=== PATIENT | female | born 1940 | race Caucasian/White ===

== ENCOUNTER 2023-11-10 10:02 | Outpatient (AMB) | payer MEDICARE, SELFPAY ==
--- NOTE | 2023-11-10 10:12 | MHC.OFFWIV ---
Intake Vital Signs 11/10/23 10:13 Height 5 ft 1 in Weight 100 lb 8 oz BMI 19.0 BP 118/70 Blood Pressure Location Rt brachial Position Sitting Respiration 14 Pulse 108 H Pulse Source Pulse Oximeter Temp 97.8 F Temp Source Temporal Artery Scan Pulse Oximetry (%) 99 Oxygen Delivery Method Room Air Intake Visit Reasons: Sinus infection Intake Note: Patient states that glands under chin are swollen, her throat is scratchy and she feels pressure around eyes. Patient states she has a cataract surgery coming up and is hoping she wont have to cancel. Patient Tobacco Use Status: Former Tobacco user Illuminator Required: No Accompanied by: Self / Same As Patient Allergies mussels Adverse Reaction (Severe, Verified 11/10/23 10:24) Vomiting azithromycin Adverse Reaction (Intermediate, Verified 11/10/23 10:24) Stomach Upset cefaclor [From Ceclor] Adverse Reaction (Verified 11/10/23 10:24) Hives Medication List - Last Reconciled 11/10/23 by Mine Worthy, [facility]- albuterol sulfate 90 mcg/actuation (Ventolin HFA) inhalation Bacillus coagulans cells PO tnzkagbevo-fcqtsjby-aijnapmjam 160-9-4.8 mcg/actuation (Breztri Aerosphere) inhalations inhalation cholecalciferol (vitamin D3) 25 mcg PO DAILY estradiol 0.5 mg PO DAILY ezetimibe 10 mg PO DAILY zz-szh-FZ-vit B-rahpau-xizksor 200 mcg-15 mcg- 5 mg-1 mg (PreserVision AREDS 2 Plus Multivit) caps PO polyethylene glycol 3350 (Miralax) 17 grams PO DAILY progesterone micronized 100 mg PO DAILY triamcinolone acetonide 0.1% 1 appl topical DAILY Do you need a note to return to daycare/school/sports/work: No HPI HPI Comments History of Present Illness Details Here today w/ URI sx & worried she has a sinus infection. Sx started 5 days ago feels like glands are swollen sore over eyes throat feeling mildly scratchy midly painful w swallowing Used Advil with + relief. Denies being ill prior to onset of sx. worried as she just had cataract surgery and will be getting other eye done and doesnt want to delay her surgery if she is sick [facility] Social History Patient Tobacco Use Status: Former Tobacco user Review of Systems Const All systems reviewed & are unremarkable except as noted in HPI and below Physical Exam Vital Signs: Last Vital Signs Temp 97.8 F 11/10/23 10:13 Pulse 108 H 11/10/23 10:13 Resp 14 11/10/23 10:13 BP 118/70 11/10/23 10:13 Pulse Ox 99 11/10/23 10:13 Oxygen Delivery Method Room Air 11/10/23 10:13 BMI result Body Mass Index 19.0 Const Other: Awake alert NAD Sclera and conjunctiva clear bilat Nares patent, turbinates pale and edematous bilat,+ frontal and maxillary sinus tenderness with palpation bilat TM intact with effusions bilat MMM, pharynx + PND, no exudate shotty ac adenopathy bilat RRR LS CTAB Assessment & Plan Assessment & Plan (1) Acute bacterial sinusitis: Code(s): J01.90 - Acute sinusitis, unspecified; B96.89 - Other specified bacterial agents as the cause of diseases classified elsewhere Plan: . Plan . Medications: New amoxicillin 500 mg PO BID 10 caps 0RF Patient Instructions: What Is It? Sinuses are air-filled spaces behind the bones of the upper face: between the eyes and behind the forehead, nose and cheeks. The lining of the sinuses are made up of cells with tiny hairs on their surfaces called cilia. Other cells in the lining produce mucus. The mucus traps germs and pollutants and the cilia push the mucus out through narrow sinus openings into the nose. When the sinuses become inflamed or infected, the mucus thickens and clogs the openings to one or more sinuses. Fluid builds up inside the sinuses causing increased pressure. Also bacteria can become trapped, multiply and infect the lining. This is sinusitis. Prevention There are some measures you can take to decrease your risk of developing sinusitis. If you smoke cigarettes, you should quit. The smoke can irritate nasal passageways and increase the likelihood of infection. Nasal allergies can trigger sinus infections, too. By identifying the allergen (the substance causing the allergic reaction) and avoiding it, you can help prevent sinusitis. If you have congestion from a cold or allergies, the following may help to reduce the risk of developing sinusitis: Drink lots of water. This thins nasal secretions and keeps mucous membranes moist. Use steam to soothe nasal passages. Breathe deeply while standing in a hot shower, or inhale the vapor from a basin filled with hot water while holding a towel over your head. Avoid blowing your nose with great force, which can push bacteria into the sinuses. Some doctors advise periodic home nasal washings to clear secretions. This may help prevent, and also treat, sinus infections. Treatment Many sinus infections improve without treatment. However, several medications may speed recovery and reduce the chance that an infection will become chronic. Decongestants - Congestion often triggers sinus infections, and decongestants can open the sinuses and allow them to drain. Several are available: Pseudoephedrine (Sudafed) is available without prescription, alone or in combination with other medications in multi-symptom cold and sinus remedies. Pseudoephedrine can cause insomnia, racing pulse and jitteriness. Do not use if you have high blood pressure or a heart condition. Phenylephrine (such as Sudafed PE) is an alternative umhb-exb-oejfaeh oral decongestant. If you take products containing oral phenylephrine, check with the pharmacist to be certain there is no interaction with other medications you take. Oxymetazoline (AfDennis steele and others) and phenylephrine (Vahid-Synephrine and others) are found in nasal sprays. They are effective and may be less likely to cause the side effects seen with pseudoephedrine. However, using a nasal decongestant for more than three days can cause worse symptoms when you stop the medication. This is called the rebound effect. Antihistamines - These medications help to relieve the symptoms of nasal allergies that lead to inflammation and infections. However, some doctors advise against using antihistamines during a sinus infection because they can cause excessive drying and slow the drainage process. Rtcf-urv-jaarghx antihistamines include diphenhydramine (Benadryl and others), chlorpheniramine (Chlor-Trimeton and others) and loratadine (Claritin). Fexofenadine (Kelsy) and cetrizine (Zyrtec) are available by prescription. Nasal steroids - Anti-inflammatory sprays such as mometasone (Nasonex) and fluticasone (Flonase), both available by prescription, reduce swelling of nasal membranes. Like antihistamines, nasal steroids can be most useful for those who have nasal allergies. Nasal steroids tend to produce less drying than antihistamines. Unlike nasal decongestants, nasal steroids can be used for prolonged periods. Saline nasal sprays - These salt-water sprays are safe to use and can provide some relief by adding moisture to the nasal passages, thinning mucus secretions and helping to flush out any bacteria that may be present. Pain relievers - Acetaminophen (Tylenol), ibuprofen (Advil, Motrin and others) or naproxen (Aleve) can be taken sinus pain. Antibiotics - Your doctor may prescribe an antibiotic if he or she suspects that a bacterial infection is causing your sinusitis. If you start taking an antibiotic, complete the entire course so that the infection is completely killed off. Not all cases of sinusitis require antibiotic treatment: Talk with your doctor about whether an antibiotic is right for you. Keep in mind that antibiotics can cause side effects, such as allergic reactions, rash and diarrhea. In addition, overusing antibiotics eventually leads to the spread of bacteria that no longer can be killed by the most commonly prescribed antibiotics. When To Call A Professional Contact a doctor if you experience facial pain along with a headache and fever, cold symptoms that last longer than seven to 10 days, or persistent green discharge from the nose. If your symptoms don't improve within a week of beginning treatment, call your doctor. Call sooner if symptoms are getting worse. If you have repeated bouts of acute sinusitis, you may have allergies or another treatable cause of sinus congestion. Ask your doctor for advice. Coding Level of Care Code Est Pt Level 3 (46838) Diagnoses Acute bacterial sinusitis J01.90; B96.89
[2023-11-10 10:13] VITALS: BP 118/70; PULSE 108; RESP 14; TEMP 36.6; O2SAT 99; BMI 19.0
== END 2023-11-10 10:31 | disposition home or self-care (01) ==
PROVIDERS: PCP Internal Medicine; Visit Provider Nurse Practitioner Family
DX: J01.90 Acute sinusitis, unspecified (principal); B96.89 Other specified bacterial agents as the cause of diseases classified elsewhere
CPT/HCPCS: 99213

== ENCOUNTER 2023-11-16 10:09 | Outpatient (AMB) | payer MEDICARE, SELFPAY ==
--- NOTE | 2023-11-16 10:15 | A.OFFPC_ITS ---
Vital Signs 11/16/23 10:26 Height 5 ft 1.02 in Weight 99 lb BMI 18.7 BP 130/68 Blood Pressure Location Lt brachial Position Sitting Respiration 14 Pulse 90 Pulse Source Pulse Oximeter Temp 98.3 F Temp Source Oral Pulse Oximetry (%) 99 Oxygen Delivery Method Room Air Intake Visit Reasons: ESTABLISH CARE TRANSFER FROM [facility] Intake Note: New patient visit Allergies mussels Adverse Reaction (Severe, Verified 11/16/23 10:20) Vomiting azithromycin Adverse Reaction (Intermediate, Verified 11/16/23 10:20) Stomach Upset cefaclor [From Ceclor] Adverse Reaction (Verified 11/16/23 10:20) Hives Medication List - Last Reconciled 11/16/23 by Bety Hdez MD albuterol sulfate 90 mcg/actuation (Ventolin HFA) 2 puffs inhalation Q4H PRN Bacillus coagulans cells PO cholecalciferol (vitamin D3) 25 mcg PO DAILY estradiol 0.5 mg PO DAILY ezetimibe 10 mg PO DAILY tj-psr-PS-vit G-uaedvv-lygetyn 200 mcg-15 mcg- 5 mg-1 mg (PreserVision AREDS 2 Plus Multivit) caps PO polyethylene glycol 3350 (Miralax) 17 grams PO DAILY progesterone micronized 100 mg PO DAILY Symbicort 160-4.5 mcg/actuation (budesonide-formoterol) 1 inh inhalation BID NS triamcinolone acetonide 0.1% 1 appl topical DAILY Tobacco use date assessed: 11/16/23 Fall risk assessment: No Falls in past year Last assessed Fall Risk: 11/16/23 Dental Screening Dental Screen Date: 11/16/23 Did you have a dental visit in the last 12 months?: Yes Did you have a dental problem in the last 6 months where you did not have access to dental care?: No Was dental information given to patient?: Patient has dentist HPI HPI Comments History of Present Illness Details The patient is an 83 year old female with a past medical history of asthma, osteoporosis, asthma, hyperlipidemia, h/o breast cancer presenting for follow up October 2022-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 She had CT chest & abdomen, blood work-benign. She was referral to [facility] but did not want to pursue Endocrine-osteoporosis. Follows with Dr Espitia. Has post menopausal symptoms-restarted estradiol 0.5mg tab and progesterone 100mg caps through [facility]ina [facility] in [place] [facility]-asthma. On albuterol as needed, symbicort 160/4.5. Has been intolerant of generics moreover they have not provided symptom relief CV-on crestor 10mg daily Heme/Onc-History of breast cancer left upper outer quadrant s/p lumpectomy. Was on tamoxifen-stopped 2/2 side efffects. Seen recently for sinus congestion, sore throat. Chronic nasal congestion. She reports ~3 weeks of persistent lymph nodes of the neck despite resolution of sore throat. Denies night sweats, unintentional weight loss Sees Dr Alvarez-production consultant ROS see HPI PHYSICAL EXAM: GENERAL: Alert and oriented x 3. NAD EYES: EOMI. Anicteric. HENT: scattered tender submandibular, ant & post cervical LN. LUNGS: Clear to auscultation bilaterally. CARDIOVASCULAR: Regular rate and rhythm. No murmur. ABDOMEN: Soft, non-tender +bs EXTREMITIES: No edema. Non-tender. SKIN: No rashes or lesions. Warm. NEUROLOGIC: No focal neurological deficits. CN II-XII grossly intact PSYCHIATRIC: Cooperative. 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 Mammogram abnormal Vitamin D deficiency Underweight Senile osteopenia Seasonal allergies Menopausal syndrome History of malignant neoplasm of breast Bilateral cataracts Asthma Arthritis Surgical History (Updated 11/16/23 @ 10:38 by Monica Galicia CMA) H/O section H/O lumpectomy H/O colonoscopy Family History (Updated 11/16/23 @ 10:40 by Monica Galicia CMA) Mother Dementia Father Emphysema lung Social History Housing: House Patient Tobacco Use Status: Former Tobacco user Cigarettes Per Day: 6 Years Smoked: 10 e-Cigarette/Vaping Use: Never Used Second Hand Smoke Exposure: No service: Yes Current occupational status: retired Cognitive needs: No Hearing needs: Yes (Hearing aid) Vision needs: Yes (reading glasses, bilateral cataracts) Questionnaire PHQ-9 Over the last 2 weeks, how often have you been bothered by any of the following problems? 1. Little interest or pleasure in doing things: not at all 2. Feeling down, depressed, or hopeless: not at all 3. Trouble falling or staying asleep, or sleeping too much: not at all 4. Feeling tired or having little energy: not at all 5. Poor appetite or overeating: not at all 6. Feeling bad about yourself - or that you are a failure or have let yourself or your family down: not at all 7. Trouble concentrating on things, such as reading the newspaper or watching television: not at all 8. Moving or speaking so slowly that other people could have noticed. Or the opposite - being so fidgety or restless that you have been moving around a lot more than usual: not at all 9. Thoughts that you would be better off or of hurting yourself in some way: not at all Total score: 0 Depression Screening Interpretation: Negative (neg) Depression Screening Done: Yes 53979 - PHQ-9 Billing: Yes Source: Developed by Drs. Ronnie Russell, Nay Frank, Hero Mcintosh and colleagues, with an educational simone from [employer] Thrive Questionnaire Date Thrive assessed: 11/16/23 I am a: Patient What is your living situation today?: I have a steady place to live Within the past 12 months, did the food you bought not last and you didn't have the money to get more?: Never true Within the past 12 months, did you worry whether your food would run out before you got money to buy more?: Never true Do you have trouble paying for medicines?: No Do you have trouble getting transportation to medical appointments?: No Do you have trouble paying your heating and electricity bill?: No Do you have trouble taking care of your child, family member or friend?: No Do you have trouble with day-to-day activities such as bathing, preparing meals, shopping, managing finances, etc.?: No Are you currently unemployed and looking for a job?: No Are you interested in more education?: No Please select the resources that you would like help with: None Currently or been in a relationship where the following occur: no concerns reported THRIVE Score: 0 AUDIT C Alcohol Use Questionnaire (AUDIT-C) 1. How often do you have a drink containing alcohol?: Monthly or less 2. How many drinks containing alcohol do you have on a typical day when you are drinking?: 1 or 2 3. How often do you have six or more drinks on one occasion?: Never Total Score: 1 GARICA-7 AMB Questionnaire GARCIA-7 Date GARCIA - 7 assessed: 11/16/23 Feeling nervous, anxious, or on edge: 0 = Not at all Not being able to stop or control worryin = Not at all Worrying too much about different things: 0 = Not at all Trouble relaxin = Not at all Being so restless that it is hard to sit still: 0 = Not at all Becoming easily annoyed or irritable: 0 = Not at all Feeling afraid as if something awful might happen: 0 = Not at all Total GARCIA-7 score (0-4 normal; 5-9 mild; 10-14 moderate; 15-21 severe): 0 Source: Developed by Drs. Ronnie Russell, Nay Frank, Hero Mcintosh and colleagues, with an educational simone from [employer] GARCIA-7 Assessment Billing GARCIA-7 Assessment Tool: GARCIA-7 Assessment 19592 ACT Questionnaire In the past 4 weeks, how much of the time did your asthma keep you from getting as much done at work, school or at home?: None of the time During the past 4 weeks, how often have you had shortness of breath?: Not at all During the past 4 weeks, how often did your asthma symptoms wake you up at night or earlier than usual in the morning?: Not at all During the past 4 weeks, how often have you had to use your rescue inhaler or nebulizer medication?: Not at all How would you rate your asthma control during the past 4 weeks?: Completely controlled ACT Interpretation: Negative Score: 25 Physical exam (Primary Care) Vital Signs: Last Vital Signs Temp 98.3 F 11/16/23 10:26 Pulse 90 11/16/23 10:26 Resp 14 11/16/23 10:26 BP 130/68 11/16/23 10:26 Pulse Ox 99 11/16/23 10:26 Oxygen Delivery Method Room Air 11/16/23 10:26 BMI result Body Mass Index 18.7 Tobacco/Smoking Status: Tobacco use Status Tobacco use date assessed 11/16/23 11/16/23 10:29 Patient Tobacco Use Status Former Tobacco user 11/16/23 10:17 e-Cigarette/Vaping Use Never Used 11/16/23 10:29 PHQ-9: PHQ-9 Score PHQ-9: Total score 0 11/16/23 11:53 Depression Screening Interpretation: Negative (neg) Thrive Assessment: Date of Thrive Assessment Date Thrive assessed 11/16/23 11/16/23 11:05 Currently or been in a relationship where the following occur: no concerns reported Assessment and Plan Assessment & Plan (1) Cervical lymphadenopathy: Code(s): R59.0 - Localized enlarged lymph nodes Plan: Ultrasound ordered (2) Osteoporosis: Code(s): M81.0 - Age-related osteoporosis without current pathological fracture Qualifiers: Osteoporosis type: age-related Presence of current pathological fracture: without current pathological fracture Qualified Code(s): M81.0 - Age- related osteoporosis without current pathological fracture Plan: continue endocrine f/up (3) Asthma: Code(s): J45.909 - Unspecified asthma, uncomplicated Qualifiers: Asthma severity: moderate Asthma persistence: persistent Asthma complication type: uncomplicated Qualified Code(s): J45.40 - Moderate persistent asthma, uncomplicated Plan: controlled. Needs brand name symbicort. Orders: Orders US thyroid 11/16/23 R59.0 - Localized enlarged lymph nodes Medications: New Symbicort 160-4.5 mcg/actuation (budesonide-formoterol) 1 inh inhalation BID 10.2 grams 3RF NS albuterol sulfate 90 mcg/actuation (Ventolin HFA) 2 puffs inhalation Q4H PRN 8.5 grams 3RF shortness of breath, wheezing Coding Level of Care Code Est Pt Level 5 (66701) Complex EM visit Add On G2211 Diagnoses Cervical lymphadenopathy R59.0 Age-related osteoporosis without current pathological fracture M81.0 Osteoporosis type: age-related Presence of current pathological fracture: without current pathological fracture Moderate persistent asthma without complication J45.40 Asthma severity: moderate Asthma persistence: persistent Asthma complication type: uncomplicated Additional Codes GARCIA-7 Assessment Billing - GARCIA-7 Assessment Tool: GARCIA-7 Assessment 39067 ([id number]) Time Spent (min) 48
[2023-11-16 10:26] VITALS: BP 130/68; PULSE 90; RESP 14; TEMP 36.8; O2SAT 99; BMI 18.7
== END 2023-11-16 11:01 | disposition home or self-care (01) ==
PROVIDERS: PCP Internal Medicine; Visit Provider Internal Medicine
DX: J45.40 Moderate persistent asthma, uncomplicated (principal); R59.0 Localized enlarged lymph nodes; M81.0 Age-related osteoporosis without current pathological fracture
CPT/HCPCS: 99215; G2211

== ENCOUNTER 2024-05-26 10:10 | Outpatient (AMB) | payer MEDICARE, SELFPAY ==
--- OUTSIDE RECORDS SUMMARY | 2024-05-26 10:12 | XMS_ITS | Data Portability ---
Author Organization [place] [facility],, LORENZA ROBISON MD Address [address] [address] Care Team Providers Care Msw Name Role Phone LINHA ALEXA Primary Care Provider [phone] Assessment No assessment recorded. Plan of Treatment Reminders Order Date Submit Date Provider Last Modified By Organization Details Last Modified Time Details Appointments None recorded. Lab wet mount, vaginal 2022 023 AJIT In-Office Order, Internal Use Only DO Not Attach Compendium DO Not Attach Compendium, Do Not Delete/merge, [id number] 3 12:50:04 pap, LB 2022 023 [facility], [address], [place], [address], 3 11:25:39 wet mount, vaginal 2023 024 [email or web address] 1 In-Office Order, Internal Use Only DO Not Attach Compendium DO Not Attach Compendium, Do Not Delete/merge, [id number] 4 11:02:48 wet mount, vaginal 2023 024 [email or web address] 1 In-Office Order, Internal Use Only DO Not Attach Compendium DO Not Attach Compendium, Do Not Delete/merge, [id number] 4 14:58:34 wet mount, vaginal 2023 024 [email or web address] 1 In-Office Order, Internal Use Only DO Not Attach Compendium DO Not Attach Compendium, Do Not Delete/merge, [id number] 4 11:42:27 cytology report, thin prep, smear or scraping, cervical or vaginal 2023 024 [place] [facility], [address], [place], [address], 4 10:06:55 Referral endocrinol ogy referral - prior patient of Dr. Espitia, has osteoporos is 2023 024 [facility] Kina Espitia MD, [address], [facility], [place], [address], 4 07:37:40 Procedures None recorded. Surgeries None recorded. Imaging MAMMO, screening, digital, bilateral - Breast Aspiration and/or Biopsy if needed 2023 024 [facility] (Mammography) , [address] [place] [address], [address], 4 10:36:41 bone density 2023 024 [facility] (Central Scheduling Radiology), [address] [place] [address], [address], 4 11:14:35 Medication Orders Pyridium 100 mg tablet 2022 023 [facility], [address] [place], [address], 3 09:36:19 terconazol e 0.4 % vaginal cream 2023 024 [place] [id number] [facility], [address] [place], [address], 4 14:39:57 fluconazol e 150 mg tablet 2023 024 [place] [id number] [facility], [address] [place], [address], 4 10:52:39 Patient TargetsNo targets recorded. Patient Instructions Encounter Date Encounter Id Patient Instructions Last Modified By Organization Details Last Modified Time 01/26/2023 [id number] painful urinatio n (dysuria): care instructions Not available 01/26/2023 10:12:24 She is here for continued problems with vaginal discharge. She notes that at night she has no discharge When I wake up I'm dry but during the day a clear, odorless discharge is noted and she needs to change her underwear 4 or 5 times a day as it gets damp. she tried wearing a mini pad however it was irritating to her. She has no pruritus. She gets estradiol 0.5 mg and prometrium 100 mg daily from her Internet shank archer. She has a past history of breast cancer and macular degeneration and is aware that these are contraindications for taking HRT however she prefers to take it. She would like to know what the discharge is nad how to get rid of it. She uses desitin around the rectum as the wetness causes irritation, and this does help her symptoms. She also would like to know how long supplements stay in your body and whether her HRT is causing this discharge. She would like to know how to wean down off of HRT. She is using the Aristocort and clobetasol prn with good results for her lichen sclerosis. All of her questions were answered to her satisfaction. she is advised to try hypoallergenic mini pads. We discussed that she could take pyridium at hs and then see if the discharge the next day is discolored or not, she wishes to try this. Is advised that the urine stains yellow/orange and so to wear a minipad to try to not stain her clothing. If the discharge is colored then we will refer her to a urologist. IF it remains clear and the urine is colored then she will try to wean down of the HRT. OR she could try seeing if a decongestant such as Zyrtec or Claritin dries up the vaginal discharge enough that it is tolerable for her. All questions answered. RX Pyridium called in. Face to face discussion 30 minutes [email or web address] Not available 01/26/2023 12:38:51 03/23/2023 [id number] osteoporosis: ca re instructions Not available 03/23/2023 10:18:40 abnormal Pap mehul t: care instructions Not available 03/23/2023 10:16:44 She is here for a repeat pap after ASCUS without HR HPV, and also to discuss her recent bone density that showed her T score dropped from -3.3 to -3.7. She sees the director of housing, Dr. Douglas, and the bone density was sent to her, but she has not heard back from their office yet. 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 Took Actonel for 4 years and then took Boniva for 1 year, stopped in 2010 because she developed jaw pain and was concerned. She had left breast DCIS in 01/2019. Pap is taken. We discussed that her bone density worsened and she should discus this with her director of housing. She is given copies of her most recent 2 bone density tests for her records. she will call their office to set up a telehealth. If this pap is normal then repeat pap at fl4xt annual. If this pap has ASCUS again then colpo. We discussed this at length, all questions answered. Not available 03/23/2023 10:18:26 06/11/2023 [id number] osteoporosis: ca re instructions Not available 06/11/2023 10:51:13 vaginal yeast infection: care instructions Not available 06/11/2023 10:50:06 She is here for a complaint of vaginal discharge. She is wearing a minipad every day due to this. It is odorless, colorless, does not cause irritation and it is not itchy. She felt it may be related to taking her HRT and so she stopped her HRT in March, but two months later she still has the discharge. No pelvic cramping or pain. Also she would like to have me make a referral to Dr. Espitia's new office in [place] to manage her osteoporosis. Also she would like to know if I can help with her prior auth for her Symbicort. We do not give her the HRT, she gets it from am Internet provider as she has had breast DCIS in the past and we had informed her that this was not advisable. __ Note from 03/22: She is here for a repeat pap after ASCUS without HR HPV, and also to discuss her recent bone density that showed her T score dropped from -3.3 to -3.7. She sees the director of housing, Dr. Douglas, and the bone density was sent to her, but she has not heard back from their office yet. 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 Took Actonel for 4 years and then took Boniva for 1 year, stopped in 2010 because she developed jaw pain and was concerned. She had left breast DCIS in 01/2019. Pap is taken. We discussed that her bone density worsened and she should discus this with her director of housing. She is given copies of her most recent 2 bone density tests for her records. she will call their office to set up a telehealth. If this pap is normal then repeat pap at ne4xt annual. If this pap has ASCUS again then colpo. We discussed this at length, all questions answered. Wet willian show yeast, an rx for Terazol 7 is called in. She is advised that if her discharge persists after the treatment then to call us and I will order a pelvic sonogram to assess whether the wetness originated in the uterus or fallopian tubes. She will let us know where to order it, she believes likely [facility]. All questions answered. A referral for Dr. Espitia is made. She is advised to contact her PCP about her Symbicort. She notes she has tried but they're so busy. Not available 06/11/2023 11:02:39 09/13/2023 [id number] vaginal yeast infection: care instructions Not available 09/13/2023 14:54:29 She is here for a one week history of vaginal pruritus. She has symptomatic monilia, rx diflucan, call if symptoms persist or recur. She is using topical desitin for comfort, which is fine. Not available 09/13/2023 15:00:04 12/17/2023 [id number] advance benefici bradford notice information Not available 12/17/2023 11:42:00 advance care sathish nning for heart failure: care instructions Not available 12/17/2023 11:41:59 atrophic vaginit is: care instructions Not available 12/17/2023 11:42:00 learning about healthy weight Not available 12/17/2023 11:41:59 She is here for annua, doing well. The desitin works well, and the clobetasol improves her symptoms of lichen sclerosis. Her director of housing manages her osteoporosis. She would like wet willian as she wonders if she has yeast though she has no symptoms at the moment. Her Internet fruit or nut farmworker gives her the estradiol, she has a pat history of breast cancer. Note from 2022: She is here for annual, doing well. Her senior windows administrator was concerned that she might have an undiagnosed internal cancer because she developed a large number of actinic keratosis in a short while. She had a Chest X ray, and a pelvic sonogram, and abdominal scan and all were negative. She is using Desitin l on her rectal area to help prevent the red irritation. She is using clobetasol for topical mangement of her lichen sclerosis. Her director of housing manages her osteoporosis. she has a telehealth fruit or nut farmworker doctor who gives her the HRT despite her past history of breast cancer. Bone density last year was stable osteoporosis. ____ She appears to be doing well. Monthly self breast exam was taught, and stressed, and is advised to call if she discovers any new mass in the breast. Does not desire renew clobetasol at this time. Wet willian are negative for yeast, she is reassured. Not available 12/17/2023 11:43:43 Reason for Referral Endocrinology Referral for S enile osteoporosis prior patient of Dr. Espitia, has osteoporosis Referring Physician: Lorenza Robison, Gynecology, Encounter Date: 06/11/2023 Results Created Date Observation Date Name Description Value Unit Range Abnormal Flag Note LastModifiedBy Organization Detail LastModifiedTime 01/27/2001/26/2023 rock patterson Clue Cells negati ve Not Available In-Office Order Internal Use Only DO Not Attach Compendium DO Not Attach Compendium, Do Not Delete/merge, [id number] 01/26/2023 10:11:01/27/2001/26/2023 wet mount , vagin al Trichomonas negati ve Not Available In-Office Order Internal Use Only DO Not Attach Compendium DO Not Attach Compendium, Do Not Delete/merge, [id number] 01/26/2023 10:11:01/27/20 23 01/26/2023 wet mount , vagin al Hyphae negati ve Not Available In-Office Order Internal Use Only DO Not Attach Compendium DO Not Attach Compendium, Do Not Delete/merge, 01/26/2023 10:11:01/27/2001/26/2023 wet mount , vagin al atrophic epithelium positi ve Not Available In-Office Order Internal Use Only DO Not Attach Compendium DO Not Attach Compendium, Do Not Delete/merge, [id number] 01/26/2023 10:11:28 03/23/2003/23/2023 CYTOL OGY (GREENHOUSE MANAGER) results Patigraeme nt Name: URSZULA CARBAJAL nt : 1940 (Age: 82) Lab Acces winnie #: [id number] Colle ction Date: 03/23 Acces winnie Date: 03/24 Sign Out Date: 03/29 Tissu e Sourc e: 1: THINP REP GREENHOUSE MANAGER PAP TEST, CERVI PHILIP: Final Diagn osis: NEGAT MIRIAM FOR INTRA EPITH ELIAL LESIO N OR MALIG OFELIA . Satis facto ry for evalu ation . Endoc ervic al/tr ansfo rmati on zone ABSEN T. Clini philip Histo ry: Date of Last Menst rual Perio d: not avail able Menst rual Histo ry: not avail able Contr acept miriam Histo ry: not avail able Ancil maile Testi ng: HPV (ASCU S) Case image d by the ThinP rep Imagi ng Systgraeme m with maninder nievesr abbey reyes or chris gaviria Perfo rmed at [facility] ate Refer ence [facility] Cytol o[facility], [address] [place] Clini philip Histo ry (othe r): R87.6 10, DIAGN OSTIC FOLLO W UP LPS 12/16 ASCUS HPV - Phone #: [phone], On-Ca ll Patho logis t: [id number] Not Available [facility] [address], [place], [place], [address], 03/29/2023 11:25:39 06/11/19 24 06/11/2023 wet mount , vagin al Clue Cells negati ve Not Available In-Office Order Internal Use Only DO Not Attach Compendium DO Not Attach Compendium, Do Not Delete/merge, 06/11/2023 10:49:27 06/11/19 24 06/11/2023 wet mount , vagin al Trichomonas negati ve Not Available In-Office Order Internal Use Only DO Not Attach Compendium DO Not Attach Compendium, Do Not Delete/merge, 06/11/2023 10:49:27 06/11/1906/11/2023 wet mount , vagin al Hyphae positi ve Not Available In-Office Order Internal Use Only DO Not Attach Compendium DO Not Attach Compendium, Do Not Delete/merge, 06/11/2023 10:49:27 06/11/19 24 06/11/2023 wet mount , vagin al atrophic epithelium positi ve Not Available In-Office Order Internal Use Only DO Not Attach Compendium DO Not Attach Compendium, Do Not Delete/merge, 06/11/2023 10:49:27 09/13/1909/13/2023 wet mount , vagin al Clue Cells negati ve Not Available In-Office Order Internal Use Only DO Not Attach Compendium DO Not Attach Compendium, Do Not Delete/merge, 09/13/2023 14:54:09 09/13/19 24 09/13/2023 wet mount , vagin al Trichomonas negati ve Not Available In-Office Order Internal Use Only DO Not Attach Compendium DO Not Attach Compendium, Do Not Delete/merge, 09/13/2023 14:54:09 09/13/19 24 09/13/2023 wet mount , vagin al Hyphae positi ve Not Available In-Office Order Internal Use Only DO Not Attach Compendium DO Not Attach Compendium, Do Not Delete/merge, [id number] 09/13/2023 14:54:09 09/13/19 24 09/13/2023 wet mount , vagin al atrophic epithelium positi ve Not Available In-Office Order Internal Use Only DO Not Attach Compendium DO Not Attach Compendium, Do Not Delete/merge, [id number] 09/13/2023 14:54:09 12/17/19 24 12/22/2023 IGP, RFX APTIM A HPV ASCU diagnosis: Sean PINEDA FOR INTRA EPITH ELIAL LESIO N OR SHANNON GILBERT . THIS SPECI MEN WAS RESCR EENED PART OF OUR QUALI TY CONTR OL PROGR AM. Not Available [facility] ([facility]) [address] [place], [address], 12/22/2023 10:06:55 12/17/19 24 12/22/2023 IGP, RFX APTIM A HPV ASCU specimen adequacy: Sean lang Satis facto adria for evalu ation . No endoc ervic al compo nent is ident ified . Not Available [facility] ([facility]) [address] [facility], [place], [address], 12/22/2023 10:06:55 12/17/19 24 12/22/2023 IGP, RFX APTIM A HPV ASCU clinician provided ICD10: Sean lang Z91.8 9 Not Available [facility] ([facility]) [address] [place], [address], 12/22/2023 10:06:55 12/17/19 24 12/22/2023 IGP, RFX APTIM A HPV ASCU performed by: Sean Saunders Prior , Cytot bibiana lang (ASCP ) Not Available [facility] ([facility]) [address] [place], [address], 12/22/2023 10:06:55 12/17/19 24 12/22/2023 IGP, RFX APTIM A HPV ASCU QC reviewed by: Sean howe, Cytot bibiana lang (ASCP ) Not Available [facility] ([facility]) [address] [place], [address], 12/22/2023 10:06:55 12/17/19 24 12/22/2023 IGP, RFX APTIM A HPV ASCU . . Not Available [facility] ([facility]) [address] [place], [address], 12/22/2023 10:06:55 12/17/19 24 12/22/2023 IGP, RFX APTIM A HPV ASCU note: Sean lang The Pap smear is a scree kari test desig fernanda to aid in the detec tion of yael ligna nt and malig nant condi tions of the uteri ne cervi x. It is not a diagn ostic proce dure and shoul d not be used as the sole means of detec ting cervi philip cance r. Both false -posi tive and false -nega tive repor ts do occur . Not Available [facility] ([facility]) [address] [place], [address], 12/22/2023 10:06:55 12/17/19 24 12/22/2023 IGP, RFX APTIM A HPV ASCU test methodology: Sean lang This liqui d based ThinP rep(R ) pap test was scree fernanda with the use of an image guide chandan munoz. Not Available [facility] ([facility]) [address] [place], [address], 12/22/2023 10:06:55 12/17/19 24 12/22/2023 IGP, RFX APTIM A HPV ASCU . Sean lang The HPV DNA refle x crite mali were not met with this speci men resul t there fore, no HPV testi ng was perfo rmed. Not Available [facility] ([facility]) [address] [facility], [place], [address], 12/22/2023 10:06:55 12/17/19 24 12/17/2023 wet mount , vagin al Clue Cells negati ve Not Available In-Office Order Internal Use Only DO Not Attach Compendium DO Not Attach Compendium, Do Not Delete/merge, [id number] 12/17/2023 11:42:10 12/17/19 24 12/17/2023 wet mount , vagin al Trichomonas negati ve Not Available In-Office Order Internal Use Only DO Not Attach Compendium DO Not Attach Compendium, Do Not Delete/merge, 12/17/2023 11:42:10 12/17/19 24 12/17/2023 wet mount , vagin al Hyphae negati ve Not Available In-Office Order Internal Use Only DO Not Attach Compendium DO Not Attach Compendium, Do Not Delete/merge, 12/17/2023 11:42:10 12/17/19 24 12/17/2023 wet mount , vagin al atrophic epithelium positi ve Not Available In-Office Order Internal Use Only DO Not Attach Compendium DO Not Attach Compendium, Do Not Delete/merge, [id number] 12/17/2023 11:42:10 02/18/20 23 02/16/2023 bone densi ty No observ ation record ed. [facility] Diagnosit Imaging Dept [address] [place], [address], 02/25/2023 11:57:07 02/26/20 23 02/16/2023 bone densi ty No observ ation record ed. [facility] (Mammography) [address] [place], [address], 02/25/2023 08:07:11 06/25/19 24 06/25/2023 US, pelvi s, trans abdom inal + trans vagin al No observ ation record ed. [facility] [address] [facility], [place], [address], 06/28/2023 14:17:50 02/18/20 24 02/18/2024 MAMMO , scree kari, digit al, bilat eral No observ ation record ed. [address] Diagnosit Imaging Dept [address] [place], [address], 02/18/2024 10:45:40 04/20/2002/18/2024 bone densi ty No observ ation record ed. [facility] Diagnosit Imaging Dept [address] [place], [address], 04/21/2024 09:12:17 04/20/20 24 02/18/2024 MAMMO , scree kari, digit al, bilat eral No observ ation record ed. [address] Diagnosit Imaging Dept [address] [place], [address], 04/20/2024 11:33:23 Result Notes None recorded. 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 Lorenza Robison MD [address] [place] [address],[address], [place], [address], [place] [facility], 6 13:34:31 Menopausal syndrome 635465914 Active taking HRT Lorenza Robison MD [address] [place] [address],[address], [place], [address], [place] [facility], 6 13:34:31 Lichen sclerosus et atrophicus Active NEEDS SMALLEST SPECULUM Lorenza Robison MD [address] [place] [address],[address], [place], [address], [place] [facility], 1 12:02:08 Malaise and fatigue 895584347 Active Lorenza Robison MD [address] [place] [address],[address], [place], [address], [place] [facility], 6 13:34:31 Vitamin D deficiency 19954919 Active Lorenza Robison MD [address], [place], [address], [place] [facility], 6 13:34:31 Hemorrhoid s 68074486 Active Lorenza Robison MD [address], [place], [address], [place] [facility], 6 13:34:31 Senile osteoporos is 86641283 Active took Boniva for 5 years, stopped in 2010 Lorenza Robison MD [address], [place], [address], [place] [facility], 6 13:34:31 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 Lorenza Robison MD [address], [place], [address], [place] [facility], 6 13:34:31 Degenerati ve disorder of macula 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 Procedures Surgical History Date Name Laterality Status Provider Name and Address Organization Details Recorded Time 02/08/20 23 Most Recent Bone Density completed [facility], 03/23/2023 09:37:52 02/14/20 22 Most Recent Mammogram completed Sandra [facility], 12/07/2022 09:01:34 06/05/19 20 Endometrial Biopsy completed Lorenza Robison MD [address] [facility],[address], [place], [address], [place] [facility], 06/05/2019 11:20:57 10/05/19 19 lumpectomy of left breast completed Anette [facility] in [facility], 11/29/2020 11:02:34 10/08/19 18 Medicare Annual completed Neeta [facility], 10/07/2017 09:33:19 05/31/18 63 Caesarean Section completed Sandra [facility], 07/17/2013 10:02:31 05/31/18 57 I&d pilonidal cyst simple completed Sandra [facility] in [facility], 07/17/2013 10:02:31 05/31/18 45 Tonsillectomy completed Sandra [facility], 07/17/2013 10:02:31 Imaging Results Imaging Date Name Status LastModified by Organization Details LastModified Time 02/16/2023 bone density completed [email or web address] Diagnosit Imaging Dept [address] [place], [address], 02/25/2023 11:57:07 02/16/2023 bone density completed [facility] (Mammography) [address] [place], [address], 02/25/2023 08:07:11 06/25/2023 US, pelvis, transabdominal + transvaginal completed [facility] [address] [facility], [place], [address], 06/28/2023 14:17:50 02/18/2024 MAMMO, screening, digital, bilateral completed [address] Diagnosit Imaging Dept [address] [place] [address], [address], 02/18/2024 10:45:40 02/18/[address] [facility] Diagnosit Imaging Dept [address] [place] [address], [address], 04/21/2024 09:12:17 02/18/2024 MAMMO, screening, digital, bilateral completed [address] Diagnosit Imaging Dept [address] [place] [address], [address], 04/20/2024 11:33:23 Procedure Notes None recorded. Medical Equipment None Reported. Allergies Allergen ID Allergen Name Allergen Category Reaction Reaction Severity Criticality Documentation Date Start Date Code Code System Note Provider Name and Address Organization Details Recorded Time 5881 Ceclor medicatio n hives Not available Not available 06/03/2012 29181 5 RxNorm [place] [facility], 3 10:41:45 5882 erythromy brie medicatio n other Not available Not available 06/03/2012 4053 RxNorm cramp s [place] [facility], 5 13:16:16 Medications Name Sig Start Date Stop Date Status Note LastModified by Organization Details LastModified Time amoxicillin 500 mg capsule TAKE ONE CAPSULE BY MOUTH TWICE A DAY active Not Available Not Available No t Available terconazole 0.4 % vaginal cream INSERT 1 APPLICATO RFUL VAGINALLY ONCE DAILY FOR 7 DAYS 09/12 completed Not Available Not Available Not Available ofloxacin 0.3 % eye drops INSTILL 1 DROP INTO THE RIGHT EYE FOUR TIMES A DAY active Not Available Not Available No t Available fluconazole 150 mg tablet TAKE 1 TABLET BY MOUTH ONCE A WEEK 12/16 completed Not Available Not Available Not Available medroxyprog esterone 2.5 mg tablet TAKE 1 TABLET BY MOUTH EVERY DAY 11/29 completed Not Available Not Available Not Available meloxicam 15 mg tablet TAKE 1 TABLET BY MOUTH ONCE DAILY 12/11 completed Not Available Not Available Not Available famotidine 40 mg tablet TAKE 1 TABLET BY MOUTH TWICE A DAY. 11/29 completed Not Available Not Available Not Available medroxyprog esterone 5 mg tablet Take 1 tablet every day by oral route. 09/14 completed Not Available Not Available Not Available fluorouraci l 5 % topical cream 09/12 completed Not Available Not Available Not Available estropipate 0.75 mg tablet TAKE 1 TABLET BY MOUTH EVERY DAY 10/25 completed Not Available Not Available Not Available amlodipine 2.5 mg tablet TAKE 1 TABLET BY MOUTH DAILY 09/12 completed Not Available Not Available Not Available peg-electro lyte solution 420 gram oral solution MIX AND USE DIRECTED. FOLLOW DIRECTION S BY OFFICE 11/29 completed Not Available Not Available Not Available triamcinolo ne acetonide 0.1 % topical cream APPLY TO ITCHY GROWTHS ON BODY TWICE DAILY FOR UP TO 3 WEEKS active Not Available Not Available No t Available TobraDex 0.3 %-0.1 % eye ointment APPLY TO THE LOWER EYELID OF BOTH EYES TWO TIMES A DAY X 1 WEEK THEN ONCE DAILY X 1 WEEK active Not Available Not Available No t Available hydrocortis one acetate 25 mg rectal suppository UNWRAP AND INSERT 1 SUPPOSITO RY RECTALLY EVERY DAY NEEDED FOR HEMORRHOI DS 10/25 completed Not Available Not Available Not Available ketorolac 0.5 % eye drops INSTILL 1 DROP INTO AFFECTED EYE 4 TIMES A DAY active Not Available Not Available No t Available phenazopyri dine 100 mg tablet TAKE ONE TABLET BY MOUTH AT BEDTIME FOR 3 DAYS 03/23 completed Not Available Not Available Not Available benzonatate 100 mg capsule TAKE ONE CAPSULE BY MOUTH THREE TIMES A DAY NEEDED FOR COUGH FOR 10 DAYS 09/25 completed Not Available Not Available Not Available pantoprazol e 40 mg tablet,pascual yed release TAKE 1 TABLET BY MOUTH TWICE A DAY FOR 4 WEEKS THEN TAKE ONCE DAILY 11/29 completed Not Available Not Available Not Available tacrolimus 0.1 % topical ointment APPLY TO CHEST, BACK AND LEG RASH TWICE DAILY NEEDED active Not Available Not Available No t Available esomeprazol e magnesium 40 mg capsule,del ayed release 11/29 completed Not Available Not Available Not Available triamcinolo ne acetonide 0.1 % topical ointment APPLY TOPICALLY TWO TIMES A DAY NEEDED X 30 DAYS active Not Available Not Available No t Available Advair Diskus 250 mcg-50 mcg/dose powder for inhalation INHALE 1 PUFF TWICE A DAY 11/29 completed Not Available Not Available Not Available nystatin-tr iamcinolone 100,000 unit/g-0.1 % topical cream APPLY TWICE A DAY TO AFFECTED AREA UNTIL GONE 11/29 completed Not Available Not Available Not Available gabapentin 300 mg capsule TAKE 1 CAPSULE BY MOUTH AT BEDTIME DAILY NEEDED FOR LEG CRAMPS 03/23 completed Not Available Not Available Not Available omeprazole 20 mg capsule,del ayed release 09/14 completed Not Available Not Available Not Available montelukast 10 mg tablet TAKE 1 TABLET BY MOUTH AT BEDTIME 10/07 completed Not Available Not Available Not Available estradiol 0.5 mg tablet TAKE ONE TABLET BY MOUTH EVERY DAY active Not Available Not Available No t Available clobetasol 0.05 % topical ointment APPLY TOPICALLY TWICE DAILY 09/12 completed Not Available Not Available Not Available albuterol sulfate HFA 90 mcg/actuati on aerosol inhaler INHALE 2 PUFFS BY MOUTH EVERY 4 HOURS NEEDED FOR SHORTNESS OF BREATH / WHEEZING active Not Available Not Available No t Available Percocet 5 mg-325 mg tablet take one tablet by mouth one hour prior to procedure 11/29 completed Not Available Not Available Not Available fluticasone propionate 50 mcg/actuati on nasal spray,suspe nsion active Not Available Not Available Not Available tamoxifen 20 mg tablet TAKE 1 TABLET BY MOUTH EVERY DAY 06/05 completed Not Available Not Available Not Available loratadine 10 mg tablet TAKE 1 TABLET BY MOUTH ONCE A DAY 10/25 completed Not Available Not Available Not Available progesteron e micronized 100 mg capsule TAKE ONE CAPSULE BY MOUTH ONCE DAILY 09/12 completed Not Available Not Available Not Available ezetimibe 10 mg tablet TAKE 1 TABLET DAILY active Not Available Not Available No t Available cyclobenzap rine 5 mg tablet TAKE 1-2 TABLETS BY MOUTH THREE TIMES A DAY NEEDED FOR MUSCLE SPASMS 12/11 completed Not Available Not Available Not Available Premarin 0.3 mg tablet TAKE 1 TABLET BY MOUTH EVERY DAY 09/12 completed Not Available Not Available Not Available rosuvastati n 5 mg tablet TAKE ONE TABLET BY MOUTH EVERY DAY 12/11 completed Not Available Not Available Not Available rosuvastati n 10 mg tablet TAKE ONE TABLET BY MOUTH DAILY active Not Available Not Available No t Available rosuvastati n 20 mg tablet TAKE 1 TABLET BY MOUTH DAILY 09/12 completed Not Available Not Available Not Available rosuvastati n 40 mg tablet TAKE ONE TABLET BY MOUTH EVERY DAY active Not Available Not Available No t Available Prilosec OTC 20 mg tablet,pascual yed release Take 1 tablet twice a day by oral route. 11/29 completed Not Available Not Available Not Available Flovent HFA 110 mcg/actuati on aerosol inhaler INHALE TWO PUFFS INTO THE LUNGS TWICE A DAY 11/29 completed Not Available Not Available Not Available senna 09/14 completed Not Available Not Available Not Available calcium active Not Available Not Avail able Not Available Prilosec 09/14 completed Not Available Not Available Not Available Vitamin D3 active Not Available Not Av ailable Not Available Miralax active Not Available Not Avail able Not Available Flax Seed Oil active Not Available Not Available Not Available Daily Multi-Vitam in active Not Available Not Available Not Available Calcium 500 + D 02/13 completed Not Available Not Available Not Available Symbicort 160 mcg-4.5 mcg/actuati on HFA aerosol inhaler INHALE 1 PUFF BY MOUTH TWICE A DAY active Not Available Not Available No t Available GaviLyte-G 236 gram-22.74 gram-6.74 gram-5.86 gram oral solution MIX AND TAKE 8 OZ BY MOUTH DIRECTED ; DRINK 1 GLASS EVERY 10-15 MINUTES active Not Available Not Available No t Available Probiotic active Not Available Not Valentina ilable Not Available Multi For Her active Not Available Not Available Not Available Aerochamber Plus Flow-Vu active Not Available Not Available Not Available ICaps AREDS active Not Available Not A vailable Not Available Fluzone High-Dose (PF) 180 mcg/0.5 mL intramuscul ar syringe TO BE ADMINISTE RED BY PHARMACIS T FOR IMMUNIZAT ION active Not Available Not Available No t Available Breo Ellipta 200 mcg-25 mcg/dose powder for inhalation INHALE 1 PUFF INTO THE LUNGS ONCE DAILY active Not Available Not Available No t Available Fluzone High-Dose 2014- (PF) 180 mcg/0.5 mL intramuscul ar syringe TO BE ADMINISTE RED BY PHARMACIS T FOR IMMUNIZAT ION 01/26 completed Not Available Not Available Not Available Fluzone High-Dose 9520-6092 (PF) 180 mcg/0.5 mL intramuscul ar syringe TO BE ADMINISTE RED BY PHARMACIS T FOR IMMUNIZAT ION 10/07 completed Not Available Not Available Not Available Fluzone High-Dose 8818-4792 (PF) 180 mcg/0.5 mL intramuscul ar syringe 05/02 completed Not Available Not Available Not Available Readi-Cat 2 2 % (w/v) oral suspension DRINK 450ML BY MOUTH TWICE DAILY. DRINK FIRST BOTTLE [address] SCAN AND THEN DRINK SECOND BOTTLE [address] SCAN 12/15 completed Not Available Not Available Not Available Shingrix (PF) 50 mcg/0.5 mL intramuscul ar suspension, kit active Not Available Not Available Not Available Fluzone High-Dose 3300-7352 (PF) 180 mcg/0.5 mL intramuscul ar syringe TO BE ADMINISTE RED BY PHARMACIS T FOR IMMUNIZAT ION 05/02 completed Not Available Not Available Not Available Fluad 2018- 65yr up(PF)45 mcg(15 mcgx3)/0.5 mL intramuscul ar syringe active Not Available Not Available N ot Available Fluzone High-Dose Quad 2019- (PF) 240 mcg/0.7 mL IM syringe TO BE ADMINISTE RED BY PHARMACIS T FOR IMMUNIZAT ION active Not Available Not Available No t Available Breztri Aerosphere 160 mcg-9mcg-4. 8mcg/actuat ion HFA aerosol inhaler INHALE TWO PUFFS BY MOUTH TWICE A DAY. RINSE MOUTH AND THROAT AFTER USE active Not Available Not Available No t Available BinaxNOW COVID-19 Ag Self Test kit USE DIRECTED active Not Available Not Available No t Available Vitals Date Recorded Body height Body mass index (BMI) Body weight Heart rate Systolic blood pressure Diastolic blood pressure Provider Name and Address Organization Details Last Updated DateTime 3 153.67 cm 18.9 kg/m2 09691.7 7 g 100 /min 148 mm[Hg] 61 mm[Hg] Sandra White in [facility], 3 09:44:13 Date Recorded Body height Body mass index (BMI) Body weight Body temperature Heart rate Systolic blood pressure Diastolic blood pressure Provider Name and Address Organization Details Last Updated DateTime 3 153.67 cm 19.2 kg/m2 58425.9 6 g 97.6 [degF] 97 /min 141 mm[Hg] 63 mm[Hg] Sandra White in [facility], 3 09:34:36 Date Recorded Body height Body mass index (BMI) Body weight Heart rate Systolic blood pressure Diastolic blood pressure Provider Name and Address Organization Details Last Updated DateTime 4 153.67 cm 19.2 kg/m2 97754.2 4 g 87 /min 133 mm[Hg] 67 mm[Hg] Anette White in [facility], 4 10:38:50 Date Recorded Body height Body mass index (BMI) Body weight Heart rate Systolic blood pressure Diastolic blood pressure Provider Name and Address Organization Details Last Updated DateTime 4 153.67 cm 19.2 kg/m2 45659.5 2 g 104 /min 133 mm[Hg] 47 mm[Hg] meli White in [facility], 4 14:36:48 Date Recorded Body height Body mass index (BMI) Body weight Body temperature Heart rate Systolic blood pressure Diastolic blood pressure Provider Name and Address Organization Details Last Updated DateTime 4 153.67 cm 19.2 kg/m2 79957.5 2 g 97.5 [degF] 90 /min 147 mm[Hg] 60 mm[Hg] meli White in [facility], 4 10:51:42 Social History Question Answer Notes LastModified by Organizat ion Details LastModified Time Tobacco Smoking Status Former Smoker quit 30 yrs ago Not Available [facility] 04/02/2020 03:19:38 What Is Your Level Of Alcohol Consumption? None Once In A While Information not available 11/29/2020 What Is Your Level Of Caffeine Consumption? None [id number] Information not available 04/02/2020 In The 14 Days Before Symptom Onset, Have You Had Close Contact With A Laboratory-confir med COVID-19 While That Case Was Ill? No Information not available 02/13/2021 In The 14 Days Before Symptom Onset, Have You Had Close Contact With A Person Who Is Under Investigation For COVID-19 While That Person Was Ill? No Information not available 02/13/2021 Have You Been To An Area Known To Be High Risk For COVID-19? No Information not available 02/13/2021 Are You Currently Employed? No Information not available 02/13/2021 What Type Of Diet Are You Following? REGULAR [id number] Information not available 04/02/2020 Which Illicit Or Recreational Drugs Have You Used? No [id number] Information not available 04/02/2020 Do You Reside In Or Have You Traveled To An Area Where Ebola Virus Transmission Is Active? No [id number] Information not available 04/02/2020 Do You Or Have You Ever Used E-cigarettes Or Vape? Never Used Electronic Cigarettes [id number] Information not available 04/02/2020 Education 4 Year College ursulacristian Altman n not available 07/15/2012 What Is The Highest Grade Or Level Of School You Have Completed Or The Highest Degree You Have Received? [id number] Information not available 02/13/2021 What Is Your Occupation? Retire [id number] Information not available 04/02/2020 How Many Days In The Past Year Have You Had A Heavy Drinking Consumption (4+ Female, 5+ Male)? 0 Kudotorski Information no t available 01/27/2016 Are There Any Guns Present In Your Home? No Information not available 02/13/2021 High Number Of Sexual Partners No Information not available 01/27/2016 To Which Gender Do You Self-identify? Female Information not available 01/27/2016 Marital Status ursulacristian Chikismelina n not available 07/15/2012 What Was The Date Of Your Most Recent Tobacco Screening? 12/17/2023 [email or web address] Information not available 12/17/2023 Are You Sexually Active? Yes [id number] Information not available 04/02/2020 At What Age Did You Start Smoking Tobacco? 17 [email or web address] Information not available 12/11/2021 Do You Or Have You Ever Used Smokeless Tobacco? Never Used Smokeless Tobacco [id number] Information not available 04/02/2020 How Much Tobacco Do You Smoke? No [id number] Information not available 04/02/2020 Do You Feel Stressed (tense, Restless, Nervous, Or Anxious, Or Unable To Sleep At Night)? [id number] Information not available 02/13/2021 Do You Use Any Illicit Or Recreational Drugs? No Information not available 02/13/2021 How Many Years Have You Smoked Tobacco? 0 [id number] Information not available 04/02/2020 Have You Recently (within The Last 12 Weeks, Or During A Current ) Traveled To Or Lived In A Zika-affected Area? No Information not available 01/27/2016 Do You Or Have You Ever Used Any Other Forms Of Tobacco Or Nicotine? No Information not available 02/13/2021 Sex: Female Functional Status Question Answer Note LastModified by Organization D etails LastModified Time What is your exercise level? Moderate [id number] Information not available 04/02/2020 Mental Status None recorded. Family History Relationship Description Onset Age of this Age Resolved Age Notes LastModified by Organization Details LastModified Time Unspecified Relation Problem melano ma in matern al cousin Not available 08/08/2015 11:14:53 Maternal Grandmother Malignant tumor of cervix 75 previo usly record ed as Cervic al Cancer Not available 08/08/2015 11:14:53 Father Problem emphys rocky (previ ously record ed as Other) Not available 08/08/2015 11:14:53 Medical History Condition Response Anesthesia complications N High Blood Pressure N Candidate for MyRisk panel N Autoimmune Condition N Kidney or Bladder Problems N Thyroid Problems N Depression N Lung Disease N GI Problems Y Defects or Inherited Disease N Anemia N History of Ovarian Cancer N History of Breast Cancer N AIDA exposure N BRCA testing in past N Osteopenia N Psychiatric Illness N Anxiety Disorder N Diabetes N Arthritis Y Headaches or Migraines N Infertility N Asthma Y History of Cancer N Endometriosis N Hepatitis N Heart Disease N Hypertension N Osteoporosis Y Gynecological History Statement/Question Response If Post Menopausal, Age at Menopause 42 Most Recent Bone Density 02/07/2023 Menses Monthly N Age at Menarche 11 Most Recent Mammogram 02/13/2022 Age at First Child 23 Hormone Replacement Therapy N Obstetrics History GPAL:G 2 P 2 0 0 2 Type Value Full Term 2 Living 2 Total 2 Immunizations Vaccine Type Date Status Note Provider Nam e and Address Organization Details Recorded Time zoster live 9 completed CARRILLO Chacon in [facility], 09/25/2022 10:01:02 Influenza, split virus, trivalent, preservative 3 completed CARRILLO Chacon in [facility], 09/25/2022 10:01:02 COVID-19, mRNA, LNP-S, PF, 100 mcg/0.5mL dose or 50 mcg/0.25mL dose 1 completed Lorenza Robison MD [address] [facility],[address], [place], [address], [place] [facility], 07/02/2020 10:41:34 COVID-19, mRNA, LNP-S, PF, 100 mcg/0.5mL dose or 50 mcg/0.25mL dose 1 completed Lorenza Robison MD [address], [place], [address], [place] [facility], 08/06/2020 13:25:56 Influenza, split virus, trivalent, preservative 4 completed CARRILLO Chacon in [facility], 09/25/2022 10:01:02 Influenza, split virus, trivalent, preservative 5 completed CARRILLO Stephen in [facility], 08/08/2015 10:46:50 influenza, unspecified formulation 6 completed CARRILLO Chacon in [facility], 09/25/2022 10:01:01 zoster live 8 completed Anette foley [place] [facility], 09/25/2022 10:01:02 influenza, unspecified formulation 7 completed Anette foley [place] [facility], 09/25/2022 10:01:01 Influenza, split virus, quadrivalent, preservative 8 completed Sandra foley [place] [facility], 10/25/2018 10:35:28 Influenza, split virus, quadrivalent, preservative 9 completed Neeta foley [place] [facility], 05/02/2019 14:35:54 varicella 9 completed Anette foley [place] [facility], 11/30/2019 13:45:34 Influenza, split virus, quadrivalent, preservative 1 completed Anette foley [place] [facility], 09/25/2022 10:01:01 influenza, unspecified formulation 2 completed Anette foley [place] [facility], 09/25/2022 10:01:01 Influenza, adjuvanted, trivalent, PF 9 completed Anette foley [place] [facility], 09/25/2022 10:01:01 zoster recombinant 8 completed Anette foley [place] [facility], 09/25/2022 10:01:01 zoster recombinant 8 completed Anette foley [place] [facility], 09/25/2022 10:01:01 Influenza, high-dose, quadrivalent, PF 1 completed Anette foley [place] [facility], 09/25/2022 10:01:01 Influenza, high-dose, quadrivalent, PF 2 completed Anette foley [place] [facility], 09/25/2022 10:01:01 COVID-19, mRNA, LNP-S, PF, 100 mcg/0.5mL dose or 50 mcg/0.25mL dose 2 completed Anette foley [place] [facility], 09/25/2022 10:01:01 COVID-19, mRNA, LNP-S, PF, 100 mcg/0.5mL dose or 50 mcg/0.25mL dose 1 completed Anette foley, [place] [facility], 09/25/2022 10:01:01 COVID-19, mRNA, LNP-S, bivalent, PF, 50 mcg/0.5 mL or 25mcg/0.25 mL dose 2 completed Anette foley [place] [facility], 09/25/2022 10:01:01 pneumococcal polysaccharide PPV23 3 completed Anette foley [place] [facility], 09/25/2022 10:01:01 pneumococcal polysaccharide PPV23 2 completed Anette foley [place] [facility], 09/25/2022 10:01:01 pneumococcal polysaccharide PPV23 2 completed Anette foley [place] [facility], 09/25/2022 10:01:01 Td(adult) unspecified formulation 3 completed Anette foley [place] [facility], 09/25/2022 10:01:01 Pneumococcal conjugate PCV 13 6 completed Anette foley [place] [facility], 09/25/2022 10:01:01 pneumococcal, unspecified formulation 2 completed Anette foley [place] [facility], 09/25/2022 10:01:01 zoster live 9 completed Anette foley [place] [facility], 09/25/2022 10:01:02 zoster live 0 completed Anette foley [place] [facility], 09/25/2022 10:01:02 Influenza, high-dose, trivalent, PF 0 completed Anette Celaya null, [place] [facility], 09/25/2022 10:01:02 Influenza, high-dose, trivalent, PF 6 completed Anette Belia null, [place] [facility], 09/25/2022 10:01:02 Influenza, high-dose, trivalent, PF 8 completed Anette Celaya null, [place] [facility], 09/25/2022 10:01:02 Influenza, high-dose, trivalent, PF 7 completed Anette Celaya null, [place] [facility], 09/25/2022 10:01:02 Influenza, high-dose, trivalent, PF 4 completed Anette Celaya null, [place] [facility], 09/25/2022 10:01:02 Influenza, high-dose, trivalent, PF 2 completed Anette Celaya null, [place] [facility], 09/25/2022 10:01:02 Influenza, split virus, trivalent, preservative 4 completed Anette Celaya null, [place] [facility], 09/25/2022 10:01:02 Influenza, split virus, trivalent, preservative 9 completed Anette Celaya null, [place] [facility], 09/25/2022 10:01:02 Influenza, split virus, trivalent, preservative 2 completed Anette Celaya null, [place] [facility], 09/25/2022 10:01:02 Influenza, split virus, trivalent, preservative 3 completed Anette Celaya null, [place] [facility], 09/25/2022 10:01:02 Influenza, split virus, trivalent, preservative 1 completed Anette Celaya null, [place] [facility], 09/25/2022 10:01:02 Influenza, split virus, trivalent, preservative 0 completed CARRILLO Chacon in [facility], 09/25/2022 10:01:02 Influenza, split virus, trivalent, preservative 4 completed CARRILLO Chacon in [facility], 09/25/2022 10:01:02 Influenza, split virus, trivalent, preservative 5 completed CARRILLO Chacon in [facility], 09/25/2022 10:01:02 Influenza, split virus, trivalent, preservative 8 completed CARRILLO Chacon in [facility], 09/25/2022 10:01:02 Influenza, split virus, trivalent, preservative 7 completed CARRILLO Chacon in [facility], 09/25/2022 10:01:02 Influenza, split virus, trivalent, preservative 6 completed CARRILLO Chacon in [facility], 09/25/2022 10:01:02 Novel [id number], preservative-free 9 completed CARRILLO Chacon in [facility], 09/25/2022 10:01:02 Td (adult), 2 Lf tetanus toxoid, preservative free, adsorbed 3 completed CARRILLO Chacon in [facility], 09/25/2022 10:01:02 pneumococcal, unspecified formulation 2 completed CARRILLO Chacon in [facility], 09/25/2022 10:01:01 Influenza, high-dose, trivalent, PF 2 completed CARRILLO Chacon in [facility], 09/25/2022 10:01:02 Past Encounters Encounter ID Performer Location Encounter Start Date Encounter Closed Date Diagnosis/Indication Diagnosis SNOMED-CT Code Diagnosis ICD10 Code [id number] LORENZA ROBISON MD [address] [facility], [place] [address] 07/15/2012 10:12:14 07/18/2012 08:11:00 [id number] Cyn ROBISON MD [address] [place] [address] [place] [address] 07/17/2013 09:45:46 07/17/2013 10:51:00 Screening for malignant neoplasm of cervix [id number] Screening mammography 24 148402 Menopausal syndrome 1237 45335 [id number] Neeta Peacock LORENZA ROBISON MD [address] [place], [place] [address] [address] 07/22/2012 13:50:35 07/22/2012 16:34:34 [id number] Sandra Price ROBISON MD [address] [place] [address] [place] [address] 08/07/2014 12:49:28 08/07/2014 14:08:25 Screening for malignant neoplasm of cervix [id number] Screening mammography 24 250504 Menopausal syndrome 1237 82560 Hemorrhoids 53978390 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 [id number] MD LORENZA Modi MD [address] [place] [address] [place] [facility] [address] 08/08/2015 10:18:59 08/08/2015 16:10:47 Screening for malignant neoplasm of cervix 573842334 Z12.4 Screening mammography 24 756268 Z12.31 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 M81.0 Menopausal syndrome 1237 67466 N95.9 [id number] MD LORENZA Modi MD [address] [place], [place] [address] [address] 01/27/2016 09:37:37 01/27/2016 11:49:58 Osteoporosis 84753570 M81.0 [id number] MD LORENZA Modi MD [address] [place], [place] [address] [address] 09/14/2016 09:25:35 09/14/2016 11:58:46 Screening for malignant neoplasm of cervix 097806786 Z12.4 Screening mammography 24 741982 Z12.31 Cares for self 737239424 Z76.89 Menopausal syndrome 1237 40958 N95.9 [id number] MD LORENZA Modi MD [address] [place] [address] 10/07/2017 09:28:52 10/07/2017 11:37:56 Screening for malignant neoplasm of cervix 001996161 Z12.4 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 M81.0 Cares for self 931672966 Z76.89 [id number] MD LORENZA Modi MD [address] [place] [address] 5 06/03/2018 13:25:53 06/06/2018 09:16:58 Menopausal syndrome 204164630 N95.1 [id number] MD LORENZA Modi MD [address] [place] [address] 5 10/25/2018 10:24:49 10/25/2018 13:01:25 Menopausal syndrome 026687779 N95.1 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 M81.0 Screening for malignant neoplasm of cervix 484546445 Z12.4 Screening mammography 24 755015 Z12.31 Screening for osteoporosis 903939618 Z13.820 Gastritis 8846607 K29.70 [id number] MD LORENZA Modi MD [address] [place] [id number] 02/07/2019 12:52:04 02/07/2019 14:43:50 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 [id number] MD LORENZA Modi MD [address] [place] [address] [address] 5 05/02/2019 13:54:42 05/02/2019 16:06:01 Vaginal fluid abnormal [id number] R87.9 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 [id number] MD LORENZA Modi MD [address] [place] [address] 5 06/05/2019 09:40:02 06/05/2019 11:39:28 Postmenopausal bleeding 49359323 N95.0 [id number] MD LORENZA Modi MD [address] [place] [address],[place] [address] 11/30/2019 13:36:56 11/30/2019 14:22:24 History of clinical finding in subject 813453790 Z91.89 Screening mammography 24 213974 Z12.31 Advance care planning 71 0035749 Z71.89 Screening for osteoporosis 533787226 Z13.820 [id number] MD LORENZA Modi MD [address] [place] [address],[place] [address] 07/02/2020 10:12:16 07/02/2020 13:21:56 Administration of viral vaccine 45957229 Z23 [id number] MD LORENZA Modi MD [address] [place] [address], [place] [address] 08/06/2020 13:13:26 08/06/2020 13:27:43 Administration of viral vaccine 38968955 Z23 [id number] MD LORENZA Modi MD [address] [place] [address], [place] [address] 5 11/29/2020 10:52:14 11/29/2020 12:08:11 History of clinical finding in subject 092122142 Z91.89 Screening mammography 24 582310 Z12.31 Advance care planning 71 3277562 Z71.89 Screening for osteoporosis 353738405 N95.8 [id number] MD LORENZA Modi MD [address] [place] [address], [place] [address] 5 02/13/2021 14:18:07 02/13/2021 15:40:55 Senile osteoporosis 38190089 M81.0 History of malignant neoplasm of breast 479949286 Z85.3 Menopausal syndrome 1237 57064 N95.1 [id number] MD LORENZA Modi MD [address] [place] [address], [place] [address] 5 12/11/2021 09:30:47 12/11/2021 14:19:09 History of clinical finding in subject 382037173 Z91.89 Screening mammography 24 639871 Z12.31 Advance care planning 71 0668820 Z71.89 Menopausal syndrome 1237 39398 N95.8 [id number] MD LORENZA Modi MD [address] [place] [address],[place] [address] 5 06/08/2022 13:00:26 06/08/2022 15:31:24 Candidal vulvovaginitis 64089111 B37.31 Proctitis 3865036 K62.89 [id number] MD LORENZA Modi MD [address] [place] [address],[facility] [place] [address] 09/25/2022 09:49:30 09/25/2022 11:40:58 Candidal vulvovaginitis 78548063 B37.31 Genital li roque sclerosus 905474284 L90.0 [id number] MD LORENZA Modi MD [address] [place] [address] [place] [address] 12/15/2022 09:53:39 12/15/2022 10:34:07 History of clinical finding in subject 251816410 Z91.89 Screening mammography 24 439763 Z12.31 Advance care planning 71 1760899 Z71.89 Screening for osteoporosis 625541858 N95.8 Genital li roque sclerosus 664625949 L90.0 [id number] MD LORENZA Modi MD [address] [place] [address] [place] [address] 01/26/2023 09:36:33 01/26/2023 13:21:27 Dysuria 11785145 R30.0 Vaginal discharge 547423 006 N89.8 47084 MD LORENZA Modi MD [address] [place] [address] [place] [address] 5 03/23/2023 09:30:27 03/23/2023 10:25:03 Atypical squamous cells of undetermined significance on cervical Papanicolaou smear 680591015 R87.610 History of malignant neoplasm of breast 963897335 Z85.3 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 M81.0 [id number] MD LORENZA Modi MD [address] [facility],[place] [address] 06/11/2023 10:34:33 06/11/2023 14:22:12 Candidal vulvovaginitis 65443708 B37.31 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 M81.0 [id number] MD LORENZA Modi MD [address] [facility],[place] [address] 09/13/2023 14:27:57 09/13/2023 16:01:39 Candidal vulvovaginitis 75080930 B37.31 [id number] MD LORENZA Modi MD [address] [facility],[place] [address] 12/17/2023 10:47:39 12/17/2023 11:59:42 History of clinical finding in subject 344354938 Z91.89 Screening mammography 24 372413 Z12.31 Advance care planning 71 7102255 Z71.89 Screening for osteoporosis 140984624 N95.8 Vaginal discharge 339950 006 N89.8 Health Concerns Section Related Observation LastModified by Organization Detai ls LastModified Time None Recorded Concern Status LastModified by Organization Details LastModified Time None Recorded Advance Directives Directive None Recorded Payers Encounter Date Sequence Insurance Name Policy Number Policy Summers Covered Member ID Summers Member ID Guarantor Name 01/26/2023 1 [employer]-ID: SECURE BLUE (MEDICARE REPLACEMENT PPO) [id number] Mary Hollis [id number] [place] 03/23/2023 1 [employer]-ID: SECURE BLUE (MEDICARE REPLACEMENT PPO) [id number] Mary Hollis [id number] [place] 06/11/2023 1 [employer]-ID: SECURE BLUE (MEDICARE REPLACEMENT PPO) [id number] Mary Hollis [id number] [place] 09/13/2023 1 [employer]-ID: SECURE BLUE (MEDICARE REPLACEMENT PPO) [id number] Mary Hollis [id number] [place] 12/17/2023 1 [employer]-ID: SECURE BLUE (MEDICARE REPLACEMENT PPO) [id number] Mary Hollis [id number] [place] Notes Date Note Type Note Provider Name and Address Organization Details Recorded Time 01/26/2023 text/html She is here for continued problems with vaginal discharge. She notes that at night she has no discharge When I wake up I'm dry but during the day a clear, odorless discharge is noted and she needs to change her underwear 4 or 5 times a day as it gets damp. she tried wearing a minipad however it was irritating to her. She has no pruritus. She gets estradiol 0.5 mg and prometrium 100 mg daily from her Internet shank archer. She has a past history of breast cancer and macular degeneration and is aware that these are contraindications for taking HRT however she prefers to take it. She would like to know what the discharge is nad how to get rid of it. She uses desitin around the rectum as the wetness causes irritation, and this does help her symptoms. She also would like to know how long supplements stay in your body and whether her HRT is causing this discharge. She would like to know how to wean down off of HRT. She is using the Aristocort and clobetasol prn with good results for her lichen sclerosis. Lorenza Robison MD [address], [place], [address], [facility], 01/26/2023 12:39:12 03/23/2023 text/html She is here for a repeat pap after ASCUS without HR HPV, and also to discuss her recent bone density that showed her T score dropped from -3.3 to -3.7. She sees the director of housing, Dr. Douglas, and the bone density was sent to her, but she has not heard back from their office yet. 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 Took Actonel for 4 years and then took Boniva for 1 year, stopped in 2010 because she developed jaw pain and was concerned.She had left breast DCIS in 01/2019. Lorenza Robison MD [address], [place], [address], [place] [facility], 03/23/2023 10:19:05 06/11/2023 text/html She is here for a complaint of vaginal discharge. She is wearing a minipad every day due to this. It is odorless, colorless, does not cause irritation and it is not itchy. She felt it may be related to taking her HRT and so she stopped her HRT in March, but two months later she still has the discharge. No pelvic cramping or pain. Also she would like to have me make a referral to Dr. Espitia's new office in [place] to manage her osteoporosis. Also she would like to know if I can help with her prior auth for her Symbicort. We do not give her the HRT, she gets it from am Internet provider as she has had breast DCIS in the past and we had informed her that this was not advisable. Note from 03/22: She is here for a repeat pap after ASCUS without HR HPV, and also to discuss her recent bone density that showed her T score dropped from -3.3 to -3.7. She sees the director of housing, Dr. Douglas, and the bone density was sent to her, but she has not heard back from their office yet.She is taking HRT with 0.5 mg estradiol and 100 mg prometrium, from an internet provider as she has had DCIS, but no formal osteoporosis therapy, at this time.Took Actonel for 4 years and then took Boniva for 1 year, stopped in 2010 because she developed jaw pain and was concerned.She had left breast DCIS in 01/2019.Pap is taken.We discussed that her bone density worsened and she should discus this with her director of housing.She is given copies of her most recent 2 bone density tests for her records. she will call their office to set up a telehealth.If this pap is normal then repeat pap at ne4xt annual. If this pap has ASCUS again then colpo. We discussed this at length, all questions answered. Lorenza Robison MD [address] [facility],[address], [place], [address], [place] [facility], 06/11/2023 11:03:17 09/13/2023 text/html She is here for a one week history of vaginal pruritus. Lorenza Robison MD [address], [place], [address], [place] [facility], 09/13/2023 15:53:02 12/17/2023 text/html She is here for annua, doing well. The desitin works well, and the clobetasol improves her symptoms of lichen sclerosis. Her director of housing manages her osteoporosis. She would like wet willian as she wonders if she has yeast though she has no symptoms at the moment.Her Internet fruit or nut farmworker gives her the estradiol, she has a pat history of breast cancer. Note from 2022: She is here for annual, doing well. Her senior windows administrator was concerned that she might have an undiagnosed internal cancer because she developed a large number of actinic keratosis in a short while. She had a Chest X ray, and a pelvic sonogram, and abdominal scan and all were negative.She is using Desitin l on her rectal area to help prevent the red irritation.She is using clobetasol for topical mangement of her lichen sclerosis.Her director of housing manages her osteoporosis. she has a telehealth fruit or nut farmworker doctor who gives her the HRT despite her past history of breast cancer.Bone density last year was stable osteoporosis. Lorenza Robison MD [address], [place], [address], [place] [facility], 12/17/2023 11:44:10 OBGyn Episode No OBEpisode recorded.
--- NOTE | 2024-05-26 10:15 | AM.OFFVISMDC ---
Intake Vital Signs 05/26/24 10:19 Height 5 ft 1 in Weight 102 lb BMI 19.3 BP 142/78 H Blood Pressure Location Lt brachial Position Sitting Respiration 13 Pulse 96 Pulse Source Pulse Oximeter Pulse Oximetry (%) 98 Oxygen Delivery Method Room Air Intake Visit Reasons: mawv Intake Note: awv check Transit Mix Operator Required: No Allergies mussels Adverse Reaction (Severe, Verified 05/26/24 10:16) Vomiting azithromycin Adverse Reaction (Intermediate, Verified 05/26/24 10:16) Stomach Upset cefaclor [From Ceclor] Adverse Reaction (Verified 05/26/24 10:16) Hives Do you need a note to return to daycare/school/sports/work: No HPI HPI Comments History of Present Illness Details The patient is an 83 year old female with a past medical history of asthma, osteoporosis, asthma, hyperlipidemia, h/o breast cancer presenting for AWV HRA reviewed-care team, meds reconciled October 2022-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 She had CT chest & abdomen, blood work-benign. She was referral to [facility] but did not want to pursue Endocrine-osteoporosis. Follows with Dr Espitia. DXA Has post menopausal symptoms-restarted estradiol 0.5mg tab and progesterone 100mg caps through lina DOMINGUEZ in [place] Rsp-asthma. On albuterol as needed, symbicort 160/4.5-insurance no longer covered. Has been intolerant of generics moreover they have not provided symptom relief CV-on crestor 10mg daily. Last LDL at goal. Lipid panel scanned (ordered by Dr Copeland) Heme/Onc-History of breast cancer left upper outer quadrant s/p lumpectomy. Was on tamoxifen-stopped 2/[address] Alvarez-internship. She will schedule with her to discuss recent pelvic u/s-05/05/24-heterogenous endometrium, top normal for age, with polyp, hyperplasia and carcinoma in the differential. In the setting of abnormal vaginal bleeding tissue sample should be considered. Colonoscopy Mar 2024-normal ROS see HPI PHYSICAL EXAM: GENERAL: Alert and oriented x 3. NAD EYES: EOMI. Anicteric. HENT: scattered tender submandibular, ant & post cervical LN. LUNGS: Clear to auscultation bilaterally. CARDIOVASCULAR: Regular rate and rhythm. No murmur. ABDOMEN: Soft, non-tender +bs EXTREMITIES: No edema. Non-tender. SKIN: No rashes or lesions. Warm. NEUROLOGIC: No focal neurological deficits. CN II-XII grossly intact PSYCHIATRIC: Cooperative. 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 Mammogram abnormal Vitamin D deficiency Underweight Senile osteopenia Seasonal allergies Menopausal syndrome History of malignant neoplasm of breast Bilateral cataracts Asthma Arthritis Surgical History (Updated 11/16/23 @ 10:38 by Monica Galicia CMA) H/O section H/O lumpectomy H/O colonoscopy Family History (Updated 11/16/23 @ 10:40 by Monica Galicia CMA) Mother Dementia Father Emphysema lung Social History Housing: House Patient Tobacco Use Status: Former Tobacco user Cigarettes Per Day: 6 Years Smoked: 10 e-Cigarette/Vaping Use: Never Used Second Hand Smoke Exposure: No service: Yes Current occupational status: retired Cognitive needs: No Hearing needs: Yes (Hearing aid) Vision needs: Yes (reading glasses, bilateral cataracts) Questionnaire PHQ-9 Over the last 2 weeks, how often have you been bothered by any of the following problems? 00583 - PHQ-9 Billing: Patient declined-do not bill Source: Developed by Drs. Ronnie Russell, Nay Frank, Hero Mcintosh and colleagues, with an educational simone from [employer]. Physical Exam Vital Signs: Last Vital Signs Pulse 96 05/26/24 10:19 Resp 13 05/26/24 10:19 BP 142/78 H 05/26/24 10:19 Pulse Ox 98 05/26/24 10:19 Oxygen Delivery Method Room Air 05/26/24 10:19 BMI result Body Mass Index 19.3 Assessment & Plan Assessment & Plan (1) Encounter for annual wellness visit (AWV) in Medicare patient: Code(s): Z00.00 - Encounter for general adult medical examination without abnormal findings Plan: No concerns identified Has border patrol officer follow up (2) COPD (chronic obstructive pulmonary disease): Code(s): J44.9 - Chronic obstructive pulmonary disease, unspecified Qualifiers: COPD type: unspecified COPD Qualified Code(s): J44.9 - Chronic obstructive pulmonary disease, unspecified Plan: without exacerbation. symbicort alternative sent Coding Level of Care Code Medicare Subsequent (G0439) Diagnoses Encounter for annual wellness visit (AWV) in Medicare patient Z00.00 Chronic obstructive pulmonary disease, unspecified COPD type J44.9 COPD type: unspecified COPD
[2024-05-26 10:19] VITALS: BP 142/78; PULSE 96; RESP 13; O2SAT 98; BMI 19.3
== END 2024-05-26 11:07 | disposition home or self-care (01) ==
PROVIDERS: PCP Internal Medicine; Visit Provider Internal Medicine
DX: Z00.00 Encounter for general adult medical examination without abnormal findings (principal); J44.9 Chronic obstructive pulmonary disease, unspecified

== ENCOUNTER → 2024-05-26 10:10 | Outpatient (BNVA) | payer MEDICARE, SELFPAY | PROVIDERS: PCP Internal Medicine; Visit Provider Internal Medicine | DX: Z00.00 Encounter for general adult medical examination without abnormal findings (principal); J44.9 Chronic obstructive pulmonary disease, unspecified; M81.0 Age-related osteoporosis without current pathological fracture; E78.5 Hyperlipidemia, unspecified; Z79.899 Other long term (current) drug therapy | CPT/HCPCS: 99212 ==

== ENCOUNTER 2024-08-21 10:53 | Outpatient (AMB) | payer MEDICARE, SELFPAY ==
--- NOTE | 2024-08-21 10:56 | A.OFFPC_ITS ---
Vital Signs 08/21/24 11:07 Height 5 ft 1 in Weight 103 lb BMI 19.5 BP 136/72 Blood Pressure Location Rt brachial Position Sitting Respiration 14 Pulse 95 Pulse Source Pulse Oximeter Pulse Oximetry (%) 95 Oxygen Delivery Method Room Air Intake Visit Reasons: having a hysterectemy on 09/18 Intake Note: Preop for hysterectomy Tape Making Machine Operator Required: No Allergies mussels Adverse Reaction (Severe, Verified 08/21/24 11:06) Vomiting azithromycin Adverse Reaction (Intermediate, Verified 08/21/24 11:06) Stomach Upset cefaclor [From Ceclor] Adverse Reaction (Verified 08/21/24 11:06) Hives Medication List - Last Reconciled 08/21/24 by Bety Hdez MD albuterol sulfate 90 mcg/actuation (Ventolin HFA) 2 puffs inhalation Q4H PRN Bacillus coagulans cells PO cholecalciferol (vitamin D3) 25 mcg PO DAILY estradiol 0.5 mg PO DAILY ezetimibe 10 mg PO DAILY mometasone-formoterol 200-5 mcg/actuation 2 puffs inhalation BID ge-unj-KM-vit P-katvmn-dvuqgcb 200 mcg-15 mcg- 5 mg-1 mg (PreserVision AREDS 2 Plus Multivit) caps PO polyethylene glycol 3350 (Miralax) 17 grams PO DAILY progesterone micronized 100 mg PO DAILY rosuvastatin 40 mg PO DAILY Symbicort 160-4.5 mcg/actuation (budesonide-formoterol) 1 inh inhalation BID NS tobramycin-dexamethasone 0.3-0.1 % (TobraDex) ophthalmic (eye) BEDTIME triamcinolone acetonide 0.1% 1 appl topical DAILY triamcinolone acetonide 0.1% 1 appl topical BID-TID Tobacco use date assessed: 08/21/24 Dental Screening Dental Screen Date: 11/16/23 HPI HPI Comments History of Present Illness Details The patient is an 83 year old female with a past medical history of asthma, osteoporosis, asthma, hyperlipidemia, h/o breast cancer presenting for preop cardiac Patient is scheduled for hysterectomy 08/2020-total radical hysterectomy with BSO under general anesthesia with Dr Mackenzie No prior issues with anesthesia EKG performed today, normal. Labs reviewed and WNL No chest pain, walks outside ~1 mile at good pace, goes to the gym frequently Has a partial. No loose fillings or crowns. 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 She had CT chest & abdomen, blood work-benign. Endocrine-osteoporosis. Follows with Dr Espitia. DXA scanned. Rsp-asthma. On albuterol as needed, symbicort 160/4.5-insurance no longer covered. Has been intolerant of generics moreover they have not provided symptom relief CV-on crestor 10mg daily. Last LDL at goal. Lipid panel scanned (ordered by Dr Copeland) Heme/Onc-History of breast cancer left upper outer quadrant s/p lumpectomy. Was on tamoxifen-stopped 2/2 side effects. 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 She had CT chest & abdomen, blood work-benign. Colonoscopy Mar 2024-normal ROS see HPI PHYSICAL EXAM: GENERAL: Alert and oriented x 3. NAD EYES: EOMI. Anicteric. HENT: scattered tender submandibular, ant & post cervical LN. LUNGS: Clear to auscultation bilaterally. CARDIOVASCULAR: Regular rate and rhythm. No murmur. ABDOMEN: Soft, non-tender +bs EXTREMITIES: No edema. Non-tender. SKIN: No rashes or lesions. Warm. NEUROLOGIC: No focal neurological deficits. CN II-XII grossly intact PSYCHIATRIC: Cooperative. 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 Mammogram abnormal Vitamin D deficiency Underweight Senile osteopenia Seasonal allergies Menopausal syndrome History of malignant neoplasm of breast Bilateral cataracts Asthma Arthritis Surgical History H/O section H/O lumpectomy H/O colonoscopy Family History Mother Dementia Father Emphysema lung Social History Housing: House Alcohol intake: current Patient Tobacco Use Status: Former Tobacco user Cigarettes Per Day: 6 Years Smoked: 10 e-Cigarette/Vaping Use: Never Used Second Hand Smoke Exposure: No service: Yes Current occupational status: retired Cognitive needs: No Hearing needs: Yes (Hearing aid) Vision needs: Yes (reading glasses, bilateral cataracts) Questionnaire Thrive Questionnaire Date Thrive assessed: 08/17/24 I am a: Patient What is your living situation today?: I have a steady place to live Within the past 12 months, did the food you bought not last and you didn't have the money to get more?: Never true Within the past 12 months, did you worry whether your food would run out before you got money to buy more?: Never true Do you have trouble getting transportation to medical appointments?: No Do you have trouble paying your heating and electricity bill?: No Do you have trouble taking care of your child, family member or friend?: No Do you have trouble with day-to-day activities such as bathing, preparing meals, shopping, managing finances, etc.?: No Are you currently unemployed and looking for a job?: No Are you interested in more education?: No Please select the resources that you would like help with: None Currently or been in a relationship where the following occur: No concerns repor isabel THRIVE Score: 0 AUDIT C Alcohol Use Questionnaire (AUDIT-C) 1. How often do you have a drink containing alcohol?: 2-3 times a week 2. How many drinks containing alcohol do you have on a typical day when you are drinking?: 1 or 2 3. How often do you have six or more drinks on one occasion?: Never Total Score: 3 GARCIA-7 AMB Questionnaire GARCIA-7 Date GARCIA - 7 assessed: 11/16/23 Feeling nervous, anxious, or on edge: 0 = Not at all Not being able to stop or control worryin = Not at all Worrying too much about different things: 0 = Not at all Trouble relaxin = Not at all Becoming easily annoyed or irritable: 0 = Not at all Feeling afraid as if something awful might happen: 0 = Not at all Source: Developed by Drs. Ronnie Russell, Nay Frank, Hero Mcintosh and colleagues, with an educational simone from [employer]. Physical exam (Primary Care) Vital Signs: Last Vital Signs Pulse 95 08/21/24 11:07 Resp 14 08/21/24 11:07 BP 136/72 08/21/24 11:07 Pulse Ox 95 08/21/24 11:07 Oxygen Delivery Method Room Air 08/21/24 11:07 BMI result Body Mass Index 19.5 Tobacco/Smoking Status: Tobacco use Status Tobacco use date assessed 08/21/24 08/21/24 11:07 Patient Tobacco Use Status Former Tobacco user 08/21/24 11:07 e-Cigarette/Vaping Use Never Used 08/21/24 11:07 Thrive Assessment: Date of Thrive Assessment Date Thrive assessed 08/17/24 08/21/24 10:57 Currently or been in a relationship where the following occur: No concerns reported Coding Level of Care Code Est Pt Level 5 (34123) Diagnoses Pre-op exam Z01.818 Moderate persistent asthma without complication J45.40 Asthma severity: moderate Asthma persistence: persistent Asthma complication type: uncomplicated Thickened endometrium R93.89 Time Spent (min) 44 Assessment & Plan Assessment & Plan (1) Pre-op exam: Code(s): Z01.818 - Encounter for other preprocedural examination (2) Asthma: Code(s): J45.909 - Unspecified asthma, uncomplicated Category: Medical Qualifiers: Asthma severity: moderate Asthma persistence: persistent Asthma complication type: uncomplicated Qualified Code(s): J45.40 - Moderate persistent asthma, uncomplicated (3) Thickened endometrium: Code(s): R93.89 - Abnormal findings on diagnostic imaging of other specified body structures Plan Preop evaluation 84 y/o with pmh asthma, thickened endometrium, vaginal discharge Asthma is well controlled EKG normal Labs reviewed METs>4 Patient is average risk patient for average risk procedure. she can proceed with surgery without further cardiac work up
[2024-08-21 11:07] VITALS: BP 136/72; PULSE 95; RESP 14; O2SAT 95; BMI 19.5
== END 2024-08-21 11:17 | disposition home or self-care (01) ==
LOC: HO.HMCFM 10:53
PROVIDERS: PCP Internal Medicine; Visit Provider Internal Medicine
DX: J45.40 Moderate persistent asthma, uncomplicated (principal); R93.89 Abnormal findings on diagnostic imaging of other specified body structures; Z01.818 Encounter for other preprocedural examination

== ENCOUNTER → 2024-08-21 10:53 | Outpatient (BNVA) | payer MEDICARE, SELFPAY | PROVIDERS: PCP Internal Medicine; Visit Provider Internal Medicine | DX: Z01.818 Encounter for other preprocedural examination (principal); J45.40 Moderate persistent asthma, uncomplicated; R93.89 Abnormal findings on diagnostic imaging of other specified body structures; Z87.891 Personal history of nicotine dependence | CPT/HCPCS: 99212 ==

== ENCOUNTER 2024-09-27 10:42 | Outpatient (AMB) | payer MEDICARE, SELFPAY ==
--- NOTE | 2024-09-27 10:48 | MHC.PC.OV ---
Vital Signs 09/27/24 10:53 Height 5 ft 1 in Weight 101 lb BMI 19.1 BP 122/72 Blood Pressure Location Lt brachial Position Sitting Respiration 14 Pulse 92 Pulse Source Pulse Oximeter Pulse Oximetry (%) 95 Oxygen Delivery Method Room Air Intake Visit Reasons: Rt arm/ shoulder pain Intake Note: Right arm and shoulder pain Patient Care Provider Required: No Allergies mussels Adverse Reaction (Severe, Verified 08/21/24 11:06) Vomiting azithromycin Adverse Reaction (Intermediate, Verified 08/21/24 11:06) Stomach Upset cefaclor [From Ceclor] Adverse Reaction (Verified 08/21/24 11:06) Hives Medication List - Last Reconciled 09/27/24 by Jeannette Simon PA-C albuterol sulfate 90 mcg/actuation (Ventolin HFA) 2 puffs inhalation Q4H PRN Bacillus coagulans cells PO cholecalciferol (vitamin D3) 25 mcg PO DAILY estradiol 0.5 mg PO DAILY ezetimibe 10 mg PO DAILY mometasone-formoterol 200-5 mcg/actuation 2 puffs inhalation BID wc-yzt-LD-vit L-yaqaov-loyeoby 200 mcg-15 mcg- 5 mg-1 mg (PreserVision AREDS 2 Plus Multivit) caps PO polyethylene glycol 3350 (Miralax) 17 grams PO DAILY progesterone micronized 100 mg PO DAILY rosuvastatin 40 mg PO DAILY Symbicort 160-4.5 mcg/actuation (budesonide-formoterol) 1 inh inhalation BID NS tobramycin-dexamethasone 0.3-0.1 % (TobraDex) ophthalmic (eye) BEDTIME triamcinolone acetonide 0.1% 1 appl topical DAILY triamcinolone acetonide 0.1% 1 appl topical BID-TID Tobacco use date assessed: 09/27/24 Fall risk assessment: No Falls in past year Last assessed Fall Risk: 09/27/24 Dental Screening Dental Screen Date: 11/16/23 Did you have a dental visit in the last 12 months?: Yes Did you have a dental problem in the last 6 months where you did not have access to dental care?: No Was dental information given to patient?: Patient has dentist HPI Rt arm/ shoulder pain HPI Details Patient is an 84-year-old female with a significant past medical history of COPD and osteoporosis presenting today for an acute problem visit regarding right shoulder pain. Her shoulder/neck have been on and off uncomfortable for years but have always been manageable until about a week ago. Last week she underwent a total hysterectomy and since then she has been having pain in the shoulder radiating down to her mid biceps region. She states that when she came out of surgery she noticed that her shoulder was very painful. She states that most of the gas is now out of her abdomen and she has not had any issues from surgery. She denies any chest pain, shortness on breath, pain with breathing, change in appetite, nausea, vomiting, dizziness. She states that it does almost feel like she was maybe in a certain position and that aggravated this. She did go to reach to open up the door and felt a snapping and sharp pain in her shoulder with radiation towards the elbow and up to the neck. She has a hard time with abduction of her shoulder and states that this causes a lot of discomfort. She can lift her arm straight above her head without difficulty but trying to reach behind her or out to the side elicits a lot of pain. She has not noticed any numbness, tingling or real weakness. She states that she does feel somewhat weak because doing certain movements causes a lot of pain where she is unable to do it. Her fisher lobster strength appears to be intact. She has been taking Advil which does not noticeably improve it. She has not noticed any that her muscles do feel somewhat tight. She was prescribed oxycodone from surgery and states that she did not take this because she did not have any real pain. She says that she also does not want to take a pain medication such as this. 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 Mammogram abnormal Vitamin D deficiency Underweight Senile osteopenia Seasonal allergies Menopausal syndrome History of malignant neoplasm of breast Bilateral cataracts Asthma Arthritis Surgical History (Updated 09/27/24 @ 10:52 by Monica Galicia CMA) H/O: hysterectomy H/O section H/O lumpectomy H/O colonoscopy Family History Mother Dementia Father Emphysema lung Social History (Updated 09/27/24 @ 10:52 by Monica Galicia CMA) Housing: House Alcohol intake: current Patient Tobacco Use Status: Former Tobacco user Cigarettes Per Day: 6 Years Smoked: 10 Packs per year/per ci.00 e-Cigarette/Vaping Use: Never Used Second Hand Smoke Exposure: No Use of substances other than those prescribed or required for medical reasons: No service: Yes Current occupational status: retired Cognitive needs: No Hearing needs: Yes (Hearing aid) Vision needs: Yes (reading glasses, bilateral cataracts) Questionnaire PHQ-9 Over the last 2 weeks, how often have you been bothered by any of the following problems? 1. Little interest or pleasure in doing things: not at all 2. Feeling down, depressed, or hopeless: not at all 3. Trouble falling or staying asleep, or sleeping too much: not at all 4. Feeling tired or having little energy: not at all 5. Poor appetite or overeating: not at all 6. Feeling bad about yourself - or that you are a failure or have let yourself or your family down: not at all 7. Trouble concentrating on things, such as reading the newspaper or watching television: not at all 8. Moving or speaking so slowly that other people could have noticed. Or the opposite - being so fidgety or restless that you have been moving around a lot more than usual: not at all 9. Thoughts that you would be better off or of hurting yourself in some way: not at all Total score: 0 Depression Screening Interpretation: Negative Depression Screening Done: Yes 30929 - PHQ-9 Billing: Yes Source: Developed by Drs. Ronnie Russell, Nay Frank, Hero Mcintosh and colleagues, with an educational simone from [employer]. Thrive Questionnaire Date Thrive assessed: 09/27/24 I am a: Patient What is your living situation today?: I have a steady place to live Within the past 12 months, did the food you bought not last and you didn't have the money to get more?: Never true Within the past 12 months, did you worry whether your food would run out before you got money to buy more?: Never true Do you have trouble paying for medicines?: No Do you have trouble getting transportation to medical appointments?: No Do you have trouble paying your heating and electricity bill?: No Do you have trouble taking care of your child, family member or friend?: No Do you have trouble with day-to-day activities such as bathing, preparing meals, shopping, managing finances, etc.?: No Are you currently unemployed and looking for a job?: No Are you interested in more education?: I choose not to answer this question Please select the resources that you would like help with: None Currently or been in a relationship where the following occur: No concerns reported THRIVE Score: 0 GARCIA-7 AMB Questionnaire GARCIA-7 Date GARCIA - 7 assessed: 09/27/24 Feeling nervous, anxious, or on edge: 0 = Not at all Not being able to stop or control worryin = Not at all Worrying too much about different things: 0 = Not at all Trouble relaxin = Not at all Being so restless that it is hard to sit still: 0 = Not at all Becoming easily annoyed or irritable: 0 = Not at all Feeling afraid as if something awful might happen: 0 = Not at all Total GARCIA-7 score (0-4 normal; 5-9 mild; 10-14 moderate; 15-21 severe): 0 Source: Developed by Drs. Ronnie Russell, Nay Frank, Hero Mcintosh and colleagues, with an educational simone from [employer]. GARCIA-7 Assessment Billing GARCIA-7 Assessment Tool: GARCIA-7 Assessment 07333 Physical exam (Primary Care) Vital Signs: Last Vital Signs Pulse 92 09/27/24 10:53 Resp 14 09/27/24 10:53 BP 122/72 09/27/24 10:53 Pulse Ox 95 09/27/24 10:53 Oxygen Delivery Method Room Air 09/27/24 10:53 BMI result Body Mass Index 19.1 Tobacco/Smoking Status: Tobacco use Status Tobacco use date assessed 09/27/24 09/27/24 10:56 Patient Tobacco Use Status Former Tobacco user 09/27/24 10:56 e-Cigarette/Vaping Use Never Used 09/27/24 10:56 PHQ-9: PHQ-9 Score PHQ-9: Total score 0 09/27/24 10:56 Depression Screening Interpretation: Negative Thrive Assessment: Date of Thrive Assessment Date Thrive assessed 09/27/24 09/27/24 10:56 Currently or been in a relationship where the following occur: No concerns reported Const Orientation/consciousness: patient oriented x3 HENMT Ears: hearing grossly normal bilaterally Neck Thyroid: Thyroid normal Lymphatic: no lymphadenopathy noted Resp Auscultation: clear to auscultation bilaterally Cardio Rate: regular rate Rhythm: regular rhythm Heart sounds: S1 normal heart sound present and S2 normal heart sound present GI Inspection: Yes normal to inspection Palpation (GI): Soft to palpation and nontender Auscultation: normoactive bowel sounds General: Yes no CVA tenderness Back/Spine/Pelvis Back: no CVA tenderness Cervical Spine: cervical ROM normal, No cervical muscular tenderness and No Cervical spine tenderness Thoracic/Lumbar Spine: thoracic and lumbar spine normal to inspection and No paraspinal muscle tenderness Skin General skin exam: no rashes or lesions noted Neuro General: patient oriented x3, gait normal, no focal motor deficits and deep tendon reflexes 2+ bilaterally Extrem Other: There is tenderness to palpation over the anterior aspect of the right shoulder and the biceps region. Otherwise, shoulder is nontender. Abduction and adduction elicits pain. Empty can test negative. Speed's test elicits pain. Public Address System Mechanic strength is 5/5 bilaterally. Sensation intact. Radial pulses 2+ bilaterally. Good capillary refill. Coding Level of Care Code Est Pt Level 4 (52179) Complex EM visit Add On G2211 Diagnoses Right shoulder pain M25.511 Neck pain M54.2 Additional Codes GARCIA-7 Assessment Billing - GARCIA-7 Assessment Tool: GARCIA-7 Assessment 02309 ([id number]) PHQ-9 - 84354 - PHQ-9 Billing: Yes ([id number]) Assessment & Plan Assessment & Plan (1) Right shoulder pain: Code(s): M25.511 - Pain in right shoulder Category: Medical (2) Neck pain: Code(s): M54.2 - Cervicalgia Category: Medical Plan X-rays ordered. I have encouraged her to continue with ice, he and we discussed applying topical Voltaren gel. She is going to try this as she thinks she has this at home. I have referred her to Orthopedics. We will follow up pending test results. Advised to follow up if anything worsens or changes. Patient understands and agrees with this plan. Orders: Orders XR shoulder RT min 2V Today M25.511 - Pain in right shoulder XR cervical spine 3V Today M25.511 - Pain in right shoulder, M54.2 - Cervicalgia Referrals Orthopedics Referral M25.511 - Pain in right shoulder
[2024-09-27 10:53] VITALS: BP 122/72; PULSE 92; RESP 14; O2SAT 95; BMI 19.1
--- OUTSIDE RECORDS SUMMARY | 2024-09-27 12:04 | XMS_ITS | Clinical Summary ---
Author Organization [facility] Address [address] [place] [address] Care Team Providers Care Auction Clerk Name Role Phone Bety Hdez MD Primary Care Provider Allergies Active Allergy Reactions Criticality Noted Date Comments Cefaclor 03/20/2019 Erythromycin 02/16/2006 Medications albuterol HFA (PROAIR HFA ; PROVENTIL HFA ; VENTOLIN HFA) 90 mcg/actuation inhaler Inhale 2 puffs into the lungs every 6 (six) hours as needed for wheezing. Active budesonide-formo teroL (Symbicort) 160-4.5 mcg/actuation inhaler Inhale 2 Puffs into the lungs 2 times daily. BRAND NAME MEDICALLY NECESSARY, NO SUBSTITUTIONS-- Rinse mouth out after use. 1 Active fluticasone propionate (FLONASE) 50 mcg/actuation nasal spray 2 Sprays by Nasal route daily. 5 Active halobetasol (ULTRAVATE) 0.05 % cream apply once?daily for up to 2 weeks, repeat as needed. 9 Active inhalational spacing device (Aerochamber Plus Flow-Vu) inhaler use with inhaler as directed. 7 Active hydrocortisone (ANUSOL-HC) [address] 1 Suppository rectally daily as needed for Hemorrhoids. 6 Active nystatin-triamci nolone (MYCOLOG II) cream Apply twice daily to affected area until gone. 6 Active progesterone (Prometrium) 100 mg capsule Take 100 Capsules by mouth daily. Active rosuvastatin (CRESTOR) 5 mg tablet Take 5 mg by mouth daily. Active triamcinolone (KENALOG) 0.1 % ointment Apply topically twice a day as needed for comfort 4 Active estradioL (ESTRACE) 0.5 mg tablet Take 0.5 mg by mouth at bedtime. Active polyethylene glycol (PEG) 17 gram/dose oral powder Take 17 g by mouth daily. Active multivit-min/iro n/folic acid/K (ADULTS MULTIVITAMIN ORAL) Take by mouth daily. Active Lactobacillus acidophilus (PROBIOTIC ORAL) Take by mouth daily. Active cholecalciferol (VITAMIN D-3) 25 mcg (1,000 unit) tablet Take 1,000 Units by mouth daily. - Oral Active Active Problems Problem Noted Date Diagnosed Date Malignant neoplasm of upper- outer quadrant of left breast in female, estrogen receptor positive ([facility] V24, [facility] V28) 06/30/2024 Tubular adenoma 07/16/2017 Tubular adenoma of colon 01/31/2016 Overview (06/30/2024): CN at age 80 if medically appropriate Vitamin D deficiency 04/04/2014 Hemorrhoids 01/28/2010 Heartburn 02/04/2007 Asthma 11/11/2006 Senile osteoporosis 02/16/2006 Overview (06/30/2024): T score - 3.7 right femoral neck, spine -3.5- 2020 Symptomatic menopausal or female climacteric sta mehul 02/16/2006 Immunizations Name Administration Dates Next Due H1N1 Inj Preservative Free 05/08/2009 Influenza trivalent, 0.5mL ( Fluad) 65yo and older 01/28/2021,01/15/2020,01/25/2019,01/25 Influenza trivalent, 0.5mL, preservative free (Fluarix; FluLaval; Fluzone) ages 6mo and older (Afluria) 3 years and older 02/27/2014,02/08/2013,02/09/2012,02/12,02/13/2010,02/08/2009,03/08/2008 ,03/24/2007,03/26/2006,03/05/2005 Pneumococcal conjugate 13 va lent (Prevnar 13, PCV13) 2mo and older 08/05/2015 Pneumococcal polysaccharide 23 valent (Pneumovax 23) 2yo and older 09/01/2011,08/14/2002 Td Tetanus diptheria (Tdvax) 7yo and older 08/01/2012 Zoster Live 01/28/2010 Zoster recombinant (Shingrix ) 19yo and older 09/29/2017,07/24/2017 Surgical History Surgery Date Site/Laterality Comments SECTION PROCEDURE: [place] DELIVERY ONLY; COMMENT: x2 TONSILLECTOMY PROCEDURE: HISTORICAL TONSILLECTOMY OTHER SURGICAL HISTORY PROCEDURE: NV EXCISION PILONIDAL CYST/SINUS COMPLICATED OTHER SURGICAL HISTORY 03/14/2019 Left PROCEDURE: HISTORICAL PARTIAL UNILATERAL MASTECTOMY; COMMENT: Dr. Harrington Medical History Medical History Date Comments Osteoporosis, unspecified 03/02 DX:Ost eoporosis, unspecified; COMMENT: T score - 3.6 Unspecified asthma(493.90) DX:Un specified asthma(493.90) Tubular adenoma of colon 01/31/2016 DX:Tubu lar adenoma of colon Malignant neoplasm of upper- outer quadrant of left breast in female, estrogen receptor positive (CMS/HCC V24, CMS/HCC V28) 03/21/2019 DX:Malignant neoplasm of upper-outer quadrant of left breast in female, estrogen receptor positive (HCC) Malignant neoplasm of upper- outer quadrant of left breast in female, estrogen receptor positive (CMS/HCC V24, CMS/HCC V28) 06/30/2024 Family History Medical History Relation Name Comments Other: emphysema Father Breast cancer Neg Hx Relation Name Status Comments Daughter 1 Alive Inflamatory art hritis Daughter 2 Alive Healthy Father Emphysema Maternal Grandmother ? cervi philip cancer Mother Dementia Sister Alive Still Social History Tobacco Use Types Packs/Day Years Used Date Smoking Tobacco: Former Smokeless Tobacco: Never Alcohol Use Standard Drinks/Week Comments Yes 0 (1 standard drink = 0.6 oz pur e alcohol) Comments Unknown Sex and Gender Information Value Date Recorded Sex Assigned at Female 06/30/2024 3:31 PM EST Legal Sex Female 12:14 PM EST Gender Identity Female 06/30/2024 3:31 PM EST Sexual Orientation Straight 06/30/2024 3: 31 PM EST Obstetrics History Last Filed Vital Signs Vital Sign Reading Time Taken Comments Blood Pressure 124/76 12/21/2023 9:04 AM EDT Pulse 88 12/21/2023 9:04 AM EDT Temperature - - Respiratory Rate - - Oxygen Saturation - - Inhaled Oxygen Concentration - - Weight 45.6 kg (100 lb 9.6 oz) 12/21/2023 9:04 A M EDT Height 154.9 cm (5' 1 ) 12/21/2023 9:04 AM EDT Body Mass Index 19.01 12/21/2023 9:04 AM EDT Plan of Treatment Upcoming Encounters Date Type Department Care Team (Late st Contact Info) Description 12/26/2024 9:45 AM EDT Office Visit General Surgery - [place] [address] [facility] [address] [place] [address] Bety Harrington MD [address] [facility] [address] [place] [address] Health Maintenance Due Date Last Done Comments Depression Screening 04/04/2020 Falls Risk Assessment 04/04/2020 Medicare Annual Wellness Visit 04/04/2020 Social Influencers of Health Screening 04/04/2020 COVID-19 Vaccine (8 - Moderna risk season) 2024 01/22/2024, 02/14/2023, 02/24/2022, Additional history exists DTaP,Tdap,and Td Vaccines (4 - Td or Tdap) 12/07/2032 12/07/2022, 08/01/2012, 08/01/2012, Additional history exists Osteoporosis Screening (Bone Density Screening) 02/17/2034 02/18/2024, 02/17/2023, 02/13/2022, Additional history exists Varicella Vaccines Aged Out 05/02/2019 No longer eligible based on patient's age to complete this topic Zoster Vaccines Completed 05/02/2019, 07/2017, 09/29/2017, Additional history exists Pneumococcal Vaccine: 50+ Years Completed 05/21/2022, 05/21/2022, 08/05/2015, Additional history exists RSV Immunization Adult Patients Completed 01/18/2023 Influenza Vaccine Completed 01/19/2024, , 02/28/2022, Additional history exists HIB Vaccines Aged Out No longer eligi ble based on patient's age to complete this topic HPV Vaccines Aged Out No longer eligi ble based on patient's age to complete this topic Hepatitis A Vaccines Aged Out No long er eligible based on patient's age to complete this topic Hepatitis B Vaccines Aged Out No long er eligible based on patient's age to complete this topic IPV Vaccines Aged Out No longer eligi ble based on patient's age to complete this topic MMR Vaccines Aged Out No longer eligi ble based on patient's age to complete this topic Meningococcal ACWY Vaccine Aged Out N o longer eligible based on patient's age to complete this topic Meningococcal B Vaccine Aged Out No l onger eligible based on patient's age to complete this topic RSV Immunization Patients Under 20 months Aged Out No longer eligible based on patient's age to complete this topic Procedures Procedure Name Priority Date/Time Associated Diagnosis Comments VENIPUNCTURE CHARGE Routine 07/28/2024 8 :16 AM EST Iron deficiency anemia, unspecified Fatigue Elevated C-reactive protein (CRP) [facility] DEXA AXIAL SKELETON Routine 02/18/2024 10:10 AM EDT Encounter for screening for osteoporosis from Last 3 Months or Most Recently Relevant to Health Maintenance Results * Venipuncture charge (07/28/2024 8:16 AM EST) Extra Tube Hold for add-ons. 07/28/2024 11:01 AM EST [facility] Comment:Auto resulted. Blood Venous blood specimen / Unknown Venipuncture / Unknown 07/28/2024 8:16 AM EST 07/28/2024 9:05 AM EST Roque Copeland MD LAB BLOOD ORDERABLES Final Result [facility] [address] [place] [address], [place] [phone] * [facility] DEXA AXIAL SKELETON (02/18/2024 10:10 AM EDT) Anatomical Region Laterality Modality Mammography 02/18/2024 8:34 AM EDT Narrative 02/18/2024 10:10 AM EDT [facility] Diagnostic Imaging Department [address] [place] [id number] Patient: ??MARY LEE ?/Age/Sex: 1940 - Unit#: ??[id number] ? Location/Status: ??SPDIMAM/REG CLI ? Mnemonic/Ordering Site: ??MAMDEXAAX/SPMAM Ordering Physician: ??ROSALBA HERRERA PA-C [facility] Dexa Axial Skeleton - 02/18/24 - Report Status:Signed HISTORY: ??The patient is an 83-year-old postmenopausal female with clinical concern for metabolic bone disease. FINDINGS: ??Dual energy x-ray absorptiometry of the lumbar spine and femurs is performed. The mean bone mineral density at L1-3 is 0.701 gm/cm2 which is 60% of that of young normals and 82% of that of age matched controls. This yields a T- score of -3.9 and a Z-score of -1.3 which is diagnostic of osteoporosis. The mean bone mineral density of the femurs bilaterally is 0.558 gm/cm2 which is 55% of that of young normals and 84% of that of age matched controls. ??This yields a T-score of -3.6 and a Z-score of -0.8 which is diagnostic of osteoporosis. The T-score of the right femoral neck is -3.7 and that of the left femoral neck is -1.0 which is diagnostic of osteoporosis. IMPRESSION: 1. Osteoporosis. ??There has been a decrease of 1.8% in bone mineral density in the lumbar spine since the prior examination of 02/16/2023. ??There has been an increase of 0.9% in bone mineral density in the right femur and a decrease of 5.8% in bone mineral density in the left femur. 2. FRAX analysis yields a 10-year probability of major osteoporotic fracture of 26.0% and a 10-year probability of hip fracture of 12.9%. Code 68758 Dictating Physician: ??JOHN GAFFNEY MD Electronically Signed by: ??JOHN GAFFNEY MD Dic Date/Time: ??02/18/24 1009 Sign date/Time: ??02/18/24 1010 Procedure Note John Gaffney MD - 03/15/2024 [facility] Diagnostic Imaging Department [address] [place] [address] Patient: ARLET LEEARIS Rene /Age/Sex: 1940 83 - F Unit#: [id number] Location/Status: SPDIMAM/REG CLI Mnemonic/Ordering Site: [facility] Ordering Physician: ROSALBA HERRERA PA-C [facility] Dexa Axial Skeleton - 02/18/24 - Report Status:Signed HISTORY: The patient is an 83-year-old postmenopausal female withclinical concern for metabolic bone disease. FINDINGS: Dual energy x-ray absorptiometry of the lumbar spine and femursis performed. The mean bone mineral density at L1-3 is 0.701 gm/cm2 which is60% of that of young normals and 82% of that of age matched controls. This yieldsa T- score of -3.9 and a Z-score of -1.3 which is diagnostic of osteoporosis. The mean bone mineral density of the femurs bilaterally is 0.558 gm/uo0avugn is 55% of that of young normals and 84% of that of age matched controls.This yields a T-score of -3.6 and a Z-score of -0.8 which is diagnostic of osteoporosis. The T-score of the right femoral neck is -3.7 and that ofthe left femoral neck is -1.0 which is diagnostic of osteoporosis. IMPRESSION: 1. Osteoporosis. There has been a decrease of 1.8% in bone mineraldensity in the lumbar spine since the prior examination of 02/16/2023. There has beenan increase of 0.9% in bone mineral density in the right femur and a decreaseof 5.8% in bone mineral density in the left femur. 2. FRAX analysis yields a 10-year probability of major osteoporoticfracture of 26.0% and a 10-year probability of hip fracture of 12.9%. Code 58192 Dictating Physician: JOHN GAFFNEY MD Electronically Signed by: JOHN GAFFNEY MD Dic Date/Time: 02/18/24 1009 Sign date/Time: 02/18/24 1010 Rosalba DELGADO IMG BI PROCEDURES Final Result from Last 3 Months or Most Recently Relevant to Health Maintenance Insurance [place]UE [place]OSS - [place] ([place]) MEDICARE ADVANTAGE Advance Directives Documents on File Type Date Recorded Patient Community Outreach Director Expl anation Health Care Decision (hx) 03/14/2019 AD QIU DIRECTIVE Health Care Decision (hx) 03/14/2019 AD QIU DIRECTIVE Health Care Decision (hx) 03/14/2019 AD QIU DIRECTIVE Health Care Decision (hx) 03/14/2019 AD QIU DIRECTIVE Health Care Decision (hx) 03/14/2019 AD QIU DIRECTIVE Health Care Decision (hx) 03/14/2019 AD QIU DIRECTIVE Health Care Decision (hx) 03/14/2019 AD QIU DIRECTIVE Health Care Decision (hx) 03/14/2019 AD QIU DIRECTIVE Health Care Decision (hx) 03/14/2019 AD QIU DIRECTIVE Health Care Decision (hx) 03/14/2019 AD QIU DIRECTIVE Health Care Decision (hx) 03/14/2019 AD QIU DIRECTIVE Health Care Decision (hx) 03/14/2019 AD QIU DIRECTIVE Health Care Decision (hx) 03/14/2019 AD QIU DIRECTIVE Health Care Decision (hx) 03/14/2019 AD QIU DIRECTIVE Health Care Decision (hx) 03/14/2019 AD QIU DIRECTIVE Health Care Decision (hx) 03/14/2019 AD QIU DIRECTIVE Health Care Decision (hx) 03/14/2019 AD QIU DIRECTIVE Health Care Decision (hx) 03/14/2019 AD QIU DIRECTIVE Health Care Decision (hx) 03/14/2019 AD QIU DIRECTIVE Health Care Decision (hx) 03/14/2019 AD QIU DIRECTIVE Care Teams Auction Clerk Relationship Specialty Start Date End Date Bety Hdez MD [address] [place] [id number] PCP - General Internal Medicine 07/28/24
--- OUTSIDE RECORDS SUMMARY | 2024-09-27 12:04 | XMS_ITS | Clinical Summary ---
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 0 Active albuterol (PROVENTIL HFA;VENTOLIN HFA) 108 (90 Base) MCG/ACT inhaler Inhale 2 puffs into the lungs every 6 (six) hours as needed for wheezing. 0 Active Cholecalciferol (VITAMIN D3) 2000 units TABS Take by mouth daily. 0 Active Multiple Vitamins-Minerals (MULTIVITAMIN ADULTS PO) Take by mouth daily. 0 Active polyethylene glycol (MIRALAX) packet Take 17 g by mouth daily. 0 Active pantoprazole (PROTONIX) 40 MG tablet Take 40 mg by mouth every morning on an empty stomach. 0 Active Probiotic Product (PROBIOTIC DAILY PO) Take by mouth daily. 0 Active tamoxifen (NOLVADEX) 20 MG tablet Take 1 tablet (20 mg total) by mouth daily. 30 tablet 2 03/20/2019 Active Additional Information Patient not taking.Reported on 06/26/2019 Active Problems Problem Noted Date Diagnosed Date Ductal carcinoma in situ (DCIS) of breast 2018 Tubular adenoma of colon 01/31/2016 Overview: Overview: CN at age 80 if medically appropriate Vitamin D deficiency 04/04/2014 Hemorrhoids 01/28/2010 Heartburn 02/04/2007 Asthma 11/11/2006 Senile osteoporosis 02/16/2006 Symptomatic menopausal or female climacteric sta mehul 02/16/2006 Family History Medical History Relation Name Comments Rheum arthritis Daughter 1 Seizures Daughter 1 No Sig Med Hx Daughter 2 No Sig Med Hx Mother Relation Name Status Comments Daughter 1 Alive Daughter 2 Alive Father (Age 78) Mother (Age 93) Social History Tobacco Use Types Packs/Day Years Used Date Smoking Tobacco: Former Cigarettes 0.5 11 Q uit: 1969 Smokeless Tobacco: Never Alcohol Use Standard Drinks/Week Comments Yes 0 (1 standard drink = 0.6 oz pur e alcohol) socially Sex and Gender Information Value Date Recorded Sex Assigned at Not on file Gender Identity Not on file Sexual Orientation Not on file Job Start Date Occupation Industry Not on file Not on file Not on file Last Filed Vital Signs Vital Sign Reading Time Taken Comments Blood Pressure 147/63 06/26/2019 10:35 AM EST Pulse 92 06/26/2019 10:35 AM EST Temperature 37.3 ??C (99.1 ??F) 06/26/2019 10:[address] Respiratory Rate - - Oxygen Saturation - - Inhaled Oxygen Concentration - - Weight 46.3 kg (102 lb) 06/26/2019 10:35 AM EST Height 156.2 cm (5' 1.5 ) 06/26/2019 10:35 AM ES T Body Mass Index 18.96 06/26/2019 10:35 AM EST Plan of Treatment Health Maintenance Due Date Last Done Comments COVID-19 Vaccine (#1) 1944 Depression Screening 1951 Preventative Health Evaluation 1957 DTap / Tdap / Td (1 - Tdap) 1958 Shingrix-Zoster Vaccine (1 of 2) 1958 Fall Risk Assessment 2004 Osteoporosis Screening (DEXA Scan) 2004 RSV Adult > 60+ Yrs or (1 - 1-dose 75+ series) 2014 Influenza Vaccine (#1) 2024 9, 01/26/2016, 02/27/2014, Additional history exists Pneumococcal Vaccine Completed 08/05/2015, 09/01/2011, 08/14/2002 Hepatitis B Vaccines Aged Out No long er eligible based on patient's age to complete this topic RSV Ped < 20 months Aged Out No longe r eligible based on patient's age to complete this topic
--- OUTSIDE RECORDS SUMMARY | 2024-09-27 12:04 | XMS_ITS | Data Portability ---
Author Organization [place] [facility],, LORENZA ROBISON MD Address [address] [address] Care Team Providers Care Decorator Mannequin Name Role Phone MARTIN REEDAH Primary Care Provider Assessment No assessment recorded. Plan of Treatment Reminders Order Date Submit Date Provider Last Modified By Organization Details Last Modified Time Details Appointments None recorded. Lab wet mount, vaginal 2023 024 [email or web address] 1 In-Office Order, Internal Use Only DO Not Attach Compendium DO Not Attach Compendium, Do Not Delete/merge, [id number] 4 11:42:27 cytology report, thin prep, smear or scraping, cervical or vaginal 2023 024 AJIT [facility] (Centralized Electronic Ordering - All Locations), Patient Can Go To The Location Of Their Choice, [id number] 4 10:06:55 wet mount, vaginal 2023 024 [email or web address] 1 In-Office Order, Internal Use Only DO Not Attach Compendium DO Not Attach Compendium, Do Not Delete/merge, [id number] 4 14:58:34 wet mount, vaginal 2023 024 [email or web address] 1 In-Office Order, Internal Use Only DO Not Attach Compendium DO Not Attach Compendium, Do Not Delete/merge, [id number] 4 11:02:48 pap, LB 2022 023 AJIT [facility] (Centralized Electronic Ordering - All Locations), Patient Can Go To The Location Of Their Choice, [id number] 3 11:25:39 wet mount, vaginal 2022 023 [place] In-Office Order, Internal Use Only DO Not Attach Compendium DO Not Attach Compendium, Do Not Delete/merge, [id number] 3 12:50:04 Referral endocrinol ogy referral - prior patient of Dr. Espitia, has osteoporos is 2023 024 [facility] Espitia MD, [address], [facility], [place], [address], 5 07:27:03 Procedures None recorded. Surgeries None recorded. Imaging MAMMO, screening, digital, bilateral - Breast Aspiration and/or Biopsy if needed 2023 024 [facility] (Mammography) , [address] [place] [address], [address], 4 10:36:41 bone density 2023 024 [facility] (Central Scheduling Radiology), [address] [place] [address], [address], 4 11:14:35 Medication Orders fluconazol e 150 mg tablet 2023 024 [place] [address] [facility], [address] [place], [address], 4 10:52:39 terconazol e 0.4 % vaginal cream 2023 024 [place] [address] [facility], [address] [place], [address], 4 14:39:57 Pyridium 100 mg tablet 2022 023 [facility], [address] [place], [address], 3 09:36:19 Patient TargetsNo targets recorded. Patient Instructions Encounter Date Encounter Id Patient Instructions Last Modified By Organization Details Last Modified Time 01/26/2023 [id number] painful urinatio n (dysuria): care instructions Not [...] prometrium 100 mg daily from her Internet wood handler. She has a past history of breast [...] in. Face to face discussion 30 minutes Not available 01/26/2023 12:38:51 03/23/2023 [id number] osteoporosis: ca re instructions Not available 03/23/2023 10:18:40 abnormal Pap mehul t: care instructions Not available 03/23/2023 10:16:44 She is here for a repeat pap after ASCUS without HR HPV, and also to discuss her recent bone density that showed her T score dropped from -3.3 to -3.7. She sees the repairing calibrator, Dr. Douglas, and the bone density was [...] and she should discus this with her repairing calibrator. She is given copies of her most recent 2 bone density tests for her records. she will call their office to set up a telehealth. If this pap is normal then repeat pap at [facility] annual. If this pap has ASCUS again then colpo. We discussed this at length, all questions answered. Not available 03/23/2023 10:18:26 06/11/2023 [id number] osteoporosis: ca re instructions Not available 06/11/2023 [...] referral to Dr. Espitia's new office in [place] to manage her osteoporosis. Also she would [...] from -3.3 to -3.7. She sees the repairing calibrator, Dr. Douglas, and the bone density was [...] and she should discus this with her repairing calibrator. She is given copies of her most [...] so busy. Not available 06/11/2023 11:02:39 09/13/2023 [id number] vaginal yeast infection: care instructions Not available 09/13/2023 14:54:29 She is here for a one week history of vaginal pruritus. She has symptomatic monilia, rx diflucan, call if symptoms persist or recur. She is using topical desitin for comfort, which is fine. Not available 09/13/2023 15:00:04 12/17/2023 [id number] advance benefici bradford notice information Not available 12/17/2023 11:42:00 advance care sathish nning for heart failure: care instructions Not available 12/17/2023 11:41:59 atrophic vaginit is: care instructions Not available 12/17/2023 11:42:00 learning about healthy weight Not available 12/17/2023 11:41:59 She is here for annua, doing well. The desitin works well, and the clobetasol improves her symptoms of lichen sclerosis. Her repairing calibrator manages her osteoporosis. She would like wet willian as she wonders if she has yeast though she has no symptoms at the moment. Her Internet nurse educator gives her the estradiol, she has a pat history of breast cancer. Note from 2022: She is here for annual, doing well. Her onsite case manager was concerned that she might have an [...] topical mangement of her lichen sclerosis. Her repairing calibrator manages her osteoporosis. she has a telehealth nurse educator doctor who gives her the HRT despite [...] Abnormal Flag Note LastModifiedBy Organization Detail LastModifiedTime 01/27/20 23 01/26/2023 [place] Clue Cells negati ve Not Available In-Office Order Internal Use Only DO Not Attach Compendium DO Not Attach Compendium, Do Not Delete/merge, [id number] 01/26/2023 10:11:28 01/27/20 23 01/26/2023 wet mount , vagin al Trichomonas negati ve Not Available In-Office Order Internal Use Only DO Not Attach Compendium DO Not Attach Compendium, Do Not Delete/merge, [id number] 01/26/2023 10:11:28 01/27/20 23 01/26/2023 wet mount , vagin al Hyphae negati ve Not Available In-Office Order Internal Use Only DO Not Attach Compendium DO Not Attach Compendium, Do Not Delete/merge, [id number] 01/26/2023 10:11:28 01/27/20 23 01/26/2023 wet mount , vagin al atrophic epithelium positi ve Not Available In-Office Order Internal Use Only DO Not Attach Compendium DO Not Attach Compendium, Do Not Delete/merge, [id number] 01/26/2023 10:11:28 03/23/2003/23/2023 CYTOL OGY (AUTOMATION CLERK) results Patie nt Name: URSZULA CARBAJAL nt : 1940 (Age: 82) Lab Acces winnie #: [id number] Colle ction Date: 03/23 Acces winnie Date: 03/24 Sign Out Date: 03/29 Tissu e Sourc e: 1: THINP REP AUTOMATION CLERK PAP TEST, CERVI PHILIP: Final Diagn osis: [...] d by the ThinP rep Imagi ng Syste m with maninder nievesr abbey reyes or chris gaviria Perfo rmed at [facility] ate Refer ence Labor atory depar tment of Cytol ogy, [address] [place] Clini philip Histo ry (othe r): R87.6 10, DIAGN OSTIC FOLLO W UP LPS 12/16 ASCUS HPV - Phone #: [phone], On-Ca ll Patho logis t: [id number] Not Available [facility] (Centralized Electronic Ordering - All Locations) Patient Can Go To The Location Of Their Choice, [id number] 03/29/2023 11:25:39 06/11/19 24 06/11/2023 wet mount [...] 24 06/11/2023 wet mount , vagin al Hyphae positi ve Not Available In-Office Order Internal Use Only DO Not Attach Compendium DO Not Attach Compendium, Do Not Delete/merge, 06/11/2023 10:49:27 06/11/19 24 06/11/2023 wet mount , vagin al atrophic epithelium positi ve Not Available In-Office Order Internal Use Only DO Not Attach Compendium DO Not Attach Compendium, Do Not Delete/merge, 06/11/2023 10:49:27 09/13/19 24 09/13/2023 wet mount , vagin al Clue Cells [...] DO Not Attach Compendium, Do Not Delete/merge, [id number] 09/13/2023 14:54:09 09/13/19 24 09/13/2023 wet mount , vagin al atrophic epithelium positi ve Not Available In-Office Order Internal Use Only DO Not Attach Compendium DO Not Attach Compendium, Do Not Delete/merge, [id number] 09/13/2023 14:54:09 12/17/1912/22/2023 IGP, RFX APTIM A HPV ASCU diagnosis: Sean lang NEGELMER MIRIAM FOR INTRA EPITH ELIAL LESIO N OR SHANNON GILBERT . THIS SPECI MEN WAS RESCR EENED PART OF OUR QUALI TY CONTR OL PROGR AM. Not Available [facility] ([facility]) [address] [place], [address], 12/22/2023 10:06:55 12/17/19 24 12/22/2023 IGP, RFX APTIM A HPV ASCU specimen adequacy: Sean lang Satis facto adria for evalu ation . No endoc ervic al compo nent is ident ified . Not Available [facility] ([facility]) [address] [facility], [place], [address], 12/22/2023 10:06:55 12/17/19 24 12/22/2023 IGP, RFX APTIM A HPV ASCU clinician provided ICD10: Sean lang Z91.8 9 Not Available [facility] ([facility]) [address] [place], [address], 12/22/2023 10:06:55 12/17/1912/22/2023 IGP, RFX APTIM A HPV ASCU performed by: Sean Saunders Prior , Cytot bibiana lang (ASCP ) Not Available [facility] ([facility]) [address] [place], [address], 12/22/2023 10:06:55 12/17/19 24 12/22/2023 IGP, RFX APTIM A HPV ASCU QC reviewed by: Sean howe, Cytorickey lang (ASCP ) Not Available [facility] ([facility]) [address] [place], [address], 12/22/2023 10:06:55 12/17/19 24 12/22/2023 IGP, RFX APTIM A HPV ASCU . . Not Available [facility] ([facility]) [address] [place], [address], 12/22/2023 10:06:55 12/17/19 24 12/22/2023 IGP, RFX [...] ts do occur . Not Available [facility] ([facility]) [address] [place], [address], 12/22/2023 10:06:55 12/17/19 24 12/22/2023 IGP, RFX APTIM A HPV ASCU test methodology: Sean lang This liqui d based ThinP rep(R ) pap test was scree fernanda with the use of an image guide d syste m. Not Available [facility] ([facility]) [address] [place], [address], 12/22/2023 10:06:55 12/17/19 24 12/22/2023 IGP, RFX APTIM A HPV ASCU . Sean lang The HPV DNA refle x crite mali were not met with this speci men resul t there fore, no HPV testi ng was perfo rmed. Not Available [facility] ([facility]) [address] [facility], [place], [address], 12/22/2023 10:06:55 12/17/19 24 12/17/2023 wet mount , vagin al Clue Cells negati ve Not Available In-Office Order Internal Use Only DO Not Attach Compendium DO Not Attach Compendium, Do Not Delete/merge, [id number] 12/17/2023 11:42:10 12/17/19 24 12/17/2023 wet mount , vagin al Trichomonas negati ve Not Available In-Office Order Internal Use Only DO Not Attach Compendium DO Not Attach Compendium, Do Not Delete/merge, [id number] 12/17/2023 11:42:10 12/17/19 24 12/17/2023 wet mount , vagin al Hyphae negati ve Not Available In-Office Order Internal Use Only DO Not Attach Compendium DO Not Attach Compendium, Do Not Delete/merge, [id number] 12/17/2023 11:42:10 12/17/19 24 12/17/2023 wet mount , vagin al atrophic epithelium positi ve Not Available In-Office Order Internal Use Only DO Not Attach Compendium DO Not Attach Compendium, Do Not Delete/merge, [id number] 12/17/2023 11:42:10 02/18/20 23 02/16/2023 bone densi ty No observ ation record ed. [facility] Diagnosit Imaging Dept [address] [place], [address], 02/25/2023 11:57:07 02/26/20 23 02/16/2023 bone densi ty No observ ation record ed. [facility] (Mammography) [address] [place], [address], 02/25/2023 08:07:11 06/25/19 24 06/25/2023 US, pelvi s, trans abdom inal + trans vagin al No observ ation record ed. [facility] [address] [place], [address], 06/28/2023 14:17:50 02/18/20 24 02/18/2024 MAMMO , scree kari, digit al, bilat eral No observ ation record ed. [address] Diagnosit Imaging Dept [address] [place], [address], 02/18/2024 10:45:40 04/20/20 24 02/18/2024 bone densi ty No observ ation record ed. [email or web address] Diagnosit Imaging Dept [address] [place], [address], 04/21/2024 09:12:17 04/20/20 24 02/18/2024 MAMMO , scree kari, digit al, bilat eral No observ ation record ed. [address] Diagnosit Imaging Dept [address] [place], [address], 04/20/2024 11:33:23 06/06/19 25 05/07/2024 US, pelvi s, trans abdom inal + trans vagin al No observ ation record ed. [facility] ([facility]) [address] [place], [address], 06/06/2024 10:30:10 Result Notes None recorded. 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 Lorenza Robison MD [address] [facility], [place], [address], [place] [facility], 6 13:34:31 Menopausal syndrome 499099588 Active taking HRT Lorenza Robison MD [address] [facility],[address], [place], [address], [place] [facility], 6 13:34:31 Lichen sclerosus et atrophicus Active NEEDS SMALLEST SPECULUM Lorenza Robison MD [address], [place], [address], [place] [facility], 1 12:02:08 Malaise and fatigue 275990094 Active Lorenza Robison MD [address], [place], [address], [place] [facility], 6 13:34:31 Vitamin D deficiency 43176114 Active Lorenza Robison MD [address], [place], [address], [place] [facility], 6 13:34:31 Hemorrhoid s 98604531 Active Lorenza Roibson MD [address], [place], [address], [place] [facility], 6 13:34:31 Senile osteoporos is 95576497 Active took Boniva for 5 years, stopped in 2010 Lorenza Robison MD [address], [place], [address], [place] [facility], 6 13:34:31 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 Lorenza Robison MD [address], [place], [address], [place] [facility], 6 13:34:31 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 Neeta foley [place] - [facility], 8 09:43:10 Gastritis 9327017 Active 2018 Lorenza Robison MD [address], [place], [address], [place] [facility], 9 10:53:05 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 Procedures Surgical History Date Name Laterality Status Provider Name and Address Organization Details Recorded Time 02/08/20 23 Most Recent Bone Density completed Snadra White in [facility], 03/23/2023 09:37:52 02/14/20 22 Most Recent Mammogram completed Sandra White in [facility], 12/07/2022 09:01:34 06/05/19 20 Endometrial Biopsy completed Lorenza Robison MD [address] [facility],[address], [place], [address], [place] - [facility], 06/05/2019 11:20:57 10/05/19 19 lumpectomy of left breast completed Anette Celaya [place] - [place] in [facility], 11/29/2020 11:02:34 10/08/19 18 Medicare Annual completed Neeta White in [facility], 10/07/2017 09:33:19 05/31/18 63 Caesarean Section completed Sandra White in [facility], 07/17/2013 10:02:31 05/31/18 57 I&d pilonidal cyst simple completed Sanrda White in [facility], 07/17/2013 10:02:31 05/31/18 45 Tonsillectomy completed Sandra White in [facility], 07/17/2013 10:02:31 Imaging Results Imaging Date Name Status LastModified by Organization Details LastModified Time 02/16/2023 bone density completed [email or web address] [facility] Diagnosit Imaging Dept [address] [facility], [place], [address], 02/25/2023 11:57:07 02/16/2023 bone density completed [facility] (Mammography) [address] [place], [address], 02/25/2023 08:07:11 06/25/2023 US, pelvis, transabdominal + transvaginal completed [address], [address], 06/28/2023 14:17:50 02/18/2024 MAMMO, screening, digital, bilateral completed [address] Diagnosit Imaging Dept [address] [place] [address], [address], 02/18/2024 10:45:40 02/18/2024 bone density completed [facility] Diagnosit Imaging Dept [address] [place], [address], 04/21/2024 09:12:17 02/18/2024 MAMMO, screening, digital, bilateral completed [address] Diagnosit Imaging Dept [address] [place] [address], [address], 04/20/2024 11:33:23 05/07/2024 US, pelvis, transabdominal + transvaginal completed [facility] ([facility]) [address] [place] [address], [address], 06/06/2024 10:30:10 Procedure Notes None recorded. Medical Equipment None Reported. Allergies Allergen ID Allergen Name Allergen Category Reaction Reaction Severity Criticality Documentation Date Start Date Code Code System Note Provider Name and Address Organization Details Recorded Time 5881 Ceclor medicatio n hives Not available Not available 06/03/2012 04393 5 RxNorm SandraCARRILLO Nuno in [facility], 3 10:41:45 5882 erythromy brie medicatio n other Not available Not available 06/03/2012 4053 RxNorm cramp s CAR[place]LLO Pride in [facility], 5 13:16:16 Medications Name Sig Start Date [...] Not Available No t Available Fluzone High-Dose (PF) 180 mcg/0.5 mL intramuscul ar syringe TO BE ADMINISTE RED BY PHARMACIS T FOR IMMUNIZAT ION 01/26 completed Not Available Not Available Not Available Fluzone High-Dose 9789-6646 (PF) 180 mcg/0.5 mL intramuscul ar syringe TO BE ADMINISTE RED BY PHARMACIS T FOR IMMUNIZAT ION 10/07 completed Not Available Not Available Not Available Fluzone High-Dose 6772-7755 (PF) 180 mcg/0.5 mL intramuscul ar syringe [...] Available Not Available Not Available Fluzone High-Dose 6862-9272 (PF) 180 mcg/0.5 mL intramuscul ar syringe TO BE ADMINISTE RED BY PHARMACIS T FOR IMMUNIZAT ION 05/02 completed Not Available Not Available Not Available Fluad 2018- 65yr up(PF)45 mcg(15 mcgx3)/0.5 mL intramuscul ar syringe active Not Available Not Available N ot Available Fluzone High-Dose Quad 2020-21 (PF) 240 mcg/0.7 mL IM syringe TO [...] Updated DateTime 3 153.67 cm 18.9 kg/m2 30235.7 7 g 100 /min 148 mm[Hg] 61 mm[Hg] Sandra White in [facility], 3 09:44:13 Date Recorded Body height Body mass index (BMI) Body weight Body temperature Heart rate Systolic blood pressure Diastolic blood pressure Provider Name and Address Organization Details Last Updated DateTime 3 153.67 cm 19.2 kg/m2 23580.9 6 g 97.6 [degF] 97 /min 141 mm[Hg] 63 mm[Hg] Sandra White in [facility], 3 09:34:36 Date Recorded Body height Body mass index (BMI) Body weight Heart rate Systolic blood pressure Diastolic blood pressure Provider Name and Address Organization Details Last Updated DateTime 4 153.67 cm 19.2 kg/m2 91117.2 4 g 87 /min 133 mm[Hg] 67 mm[Hg] Anette White in [facility], 4 10:38:50 Date Recorded Body height Body mass index (BMI) Body weight Heart rate Systolic blood pressure Diastolic blood pressure Provider Name and Address Organization Details Last Updated DateTime 4 153.67 cm 19.2 kg/m2 84167.5 2 g 104 /min 133 mm[Hg] 47 mm[Hg] meli Han [facility], 4 14:36:48 Date Recorded Body height Body mass index (BMI) Body weight Body temperature Heart rate Systolic blood pressure Diastolic blood pressure Provider Name and Address Organization Details Last Updated DateTime 4 153.67 cm 19.2 kg/m2 18895.5 2 g 97.5 [degF] 90 /min 147 mm[Hg] 60 mm[Hg] meli lombardo [place] - [facility], 4 10:51:42 Social History Question Answer Notes LastModified by Organizat ion Details LastModified Time Tobacco Smoking Status Former Smoker quit 30 yrs ago Not Available [facility] 04/02/2020 03:19:38 What Is Your Level Of Alcohol Consumption? None Once In A While Information not available 11/29/2020 What Is Your Level Of Caffeine Consumption? None [id number] Information not available 04/02/2020 In The 14 [...] Type Of Diet Are You Following? REGULAR [id number] Information not available 04/02/2020 Which Illicit Or Recreational Drugs Have You Used? No [id number] Information not available 04/02/2020 Do You Reside In Or Have You Traveled To An Area Where Ebola Virus Transmission Is Active? No [id number] Information not available 04/02/2020 Do You Or Have You Ever Used E-cigarettes Or Vape? Never Used Electronic Cigarettes [id number] Information not available 04/02/2020 Education 4 Year College [email or web address] Informatio n not available 07/15/2012 What Is The Highest Grade Or Level Of School You Have Completed Or The Highest Degree You Have Received? 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 0 [employer] Information no t available 01/27/2016 Are There Any Guns Present In Your Home? No Information not available 02/13/2021 High Number Of Sexual Partners No Information not available 01/27/2016 To Which Gender Do You Self-identify? Female Information not available 01/27/2016 Marital Status Informatio n not available 07/15/2012 What Was The Date Of Your Most Recent Tobacco Screening? 12/17/2023 [email or web address] Information not available 12/17/2023 Are You Sexually Active? Yes [id number] Information not available 04/02/2020 At What Age Did You Start Smoking Tobacco? 17 Information not available 12/11/2021 Do You Or Have You Ever Used Smokeless Tobacco? Never Used Smokeless Tobacco [id number] Information not available 04/02/2020 How Much Tobacco Do You Smoke? No [id number] Information not available 04/02/2020 Do You Feel Stressed (tense, Restless, Nervous, Or Anxious, Or Unable To Sleep At Night)? [id number] Information not available 02/13/2021 Do You Use Any Illicit Or Recreational Drugs? No Information not available 02/13/2021 How Many Years Have You Smoked Tobacco? 0 [id number] Information not available 04/02/2020 Have You Recently [...] Time What is your exercise level? Moderate [id number] Information not available 04/02/2020 Mental Status None recorded. Family History Relationship Description Onset Age of this Age Resolved Age Notes LastModified by Organization Details LastModified Time Unspecified Relation Problem edson dunbar in matern al cousin Not available 08/08/2015 11:14:53 Maternal Grandmother Malignant tumor of cervix 75 previo usly record ed as Cervic al Cancer Not available 08/08/2015 11:14:53 Father Problem emphys rocky (previ ously record ed as Other) Not available 08/08/2015 11:14:53 Medical History Condition Response Anesthesia complications N High Blood Pressure N Candidate for MyRisk panel N Autoimmune Condition N Thyroid Problems N Kidney or Bladder Problems N GI Problems Y Lung Disease N Depression N Defects or Inherited Disease N Anemia N [...] zoster live 9 completed [place] [facility], 09/25/2022 10:01:02 Influenza, split virus, trivalent, preservative 3 completed [place] Chacon in [facility], 09/25/2022 10:01:02 COVID-19, mRNA, LNP-S, PF, 100 mcg/0.5mL dose or 50 mcg/0.25mL dose 1 completed Lorenza Robison MD [address], [place], [address], [place] [facility], 07/02/2020 10:41:34 COVID-19, mRNA, LNP-S, PF, 100 mcg/0.5mL dose or 50 mcg/0.25mL dose 1 completed Lorenza Robison MD [address], [place], [address], [place] [facility], 08/06/2020 13:25:56 Influenza, split virus, trivalent, preservative 4 completed Anette foley [place] [facility], 09/25/2022 10:01:02 Influenza, split virus, trivalent, preservative 5 completed Neeta foley [place] [facility], 08/08/2015 10:46:50 influenza, unspecified formulation 6 completed Anette foley [place] - [facility] [...] 09/25/2022 10:01:01 zoster recombinant 8 completed Anette Celaya null, [place] - [facility], 09/25/2022 10:01:01 Influenza, high-dose, quadrivalent, PF 1 completed Anette Belia null, [place] - [facility], 09/25/2022 10:01:01 Influenza, high-dose, quadrivalent, PF 2 completed Anette Celaya null, [place] - [facility], 09/25/2022 10:01:01 COVID-19, mRNA, LNP-S, PF, 100 mcg/0.5mL dose or 50 mcg/0.25mL dose 2 completed Anette Celaya null, [place] - [facility], 09/25/2022 10:01:01 COVID-19, mRNA, LNP-S, PF, 100 mcg/0.5mL dose or 50 mcg/0.25mL dose 1 completed Anette foley, [place] - [facility], 09/25/2022 10:01:01 COVID-19, mRNA, LNP-S, bivalent, PF, 50 mcg/0.5 mL or 25mcg/0.25 mL dose 2 completed Anette foley, [place] - [facility], 09/25/2022 10:01:01 pneumococcal polysaccharide PPV23 3 completed Anette foley, [place] - [facility], 09/25/2022 10:01:01 pneumococcal polysaccharide PPV23 2 completed Anette Celaya null, [place] - [facility], 09/25/2022 10:01:01 pneumococcal polysaccharide PPV23 2 completed Anette Celaya null, [place] - [facility], 09/25/2022 10:01:01 Td(adult) unspecified formulation 3 completed Anette foley, [place] - [facility], 09/25/2022 10:01:01 Pneumococcal conjugate PCV 13 6 completed Anette Celaya null, [place] - [facility], 09/25/2022 10:01:01 pneumococcal, unspecified formulation 2 completed Anette foley, [place] - [facility], 09/25/2022 10:01:01 zoster live 9 completed Anette foley, [place] - [facility], 09/25/2022 10:01:02 zoster live 0 completed Anette Celaya null, [place] - [facility], 09/25/2022 10:01:02 Influenza, high-dose, trivalent, PF 0 completed Anette foley, [place] - [facility], 09/25/2022 10:01:02 Influenza, high-dose, trivalent, PF 6 completed Anette foley, [place] - [facility], 09/25/2022 10:01:02 Influenza, high-dose, trivalent, PF 8 completed Anette foley, [place] - [facility], 09/25/2022 10:01:02 Influenza, high-dose, trivalent, PF 7 completed Anette foley, [place] - [facility], 09/25/2022 10:01:02 Influenza, high-dose, trivalent, PF 4 completed Anette foley [place] - [facility], 09/25/2022 10:01:02 Influenza, high-dose, trivalent, PF 2 completed Anette foley, [place] - [facility], 09/25/2022 10:01:02 Influenza, split virus, trivalent, preservative 4 completed Anette Celaya null, [place] - [facility], 09/25/2022 10:01:02 Influenza, split virus, trivalent, preservative 9 completed Anette foley, [place] - [facility], 09/25/2022 10:01:02 Influenza, split virus, trivalent, preservative 2 completed Anette foley [place] - [facility], 09/25/2022 10:01:02 Influenza, split virus, trivalent, preservative 3 completed Anette foley [place] - [facility], 09/25/2022 10:01:02 Influenza, split virus, trivalent, preservative 1 completed Anette foley [place] - [facility], 09/25/2022 10:01:02 Influenza, split virus, trivalent, preservative 0 completed Anette foley [place] - [facility], 09/25/2022 10:01:02 Influenza, split virus, trivalent, preservative 4 completed Anette foley [place] - [facility], 09/25/2022 10:01:02 Influenza, split virus, trivalent, preservative 5 completed Anette foley [place] - [facility], 09/25/2022 10:01:02 Influenza, split virus, trivalent, preservative 8 completed Anette foley [place] - [facility], 09/25/2022 10:01:02 Influenza, split virus, trivalent, preservative 7 completed Anette foley [place] - [facility], 09/25/2022 10:01:02 Influenza, split virus, trivalent, preservative 6 completed Anette foley [place] - [facility], 09/25/2022 10:01:02 Novel [id number], preservative-free 9 completed Anette foley [place] - [facility], 09/25/2022 10:01:02 Td (adult), 2 Lf tetanus toxoid, preservative free, adsorbed 3 completed Anette foley [place] - [facility], 09/25/2022 10:01:02 pneumococcal, unspecified formulation 2 completed Anette foley [place] - [facility], 09/25/2022 10:01:01 Influenza, high-dose, trivalent, PF 2 completed [place] in [facility], 09/25/2022 10:01:02 Past Encounters Encounter ID Performer Location Encounter Start Date Encounter Closed Date Diagnosis/Indication Diagnosis SNOMED-CT Code Diagnosis ICD10 Code Diagnosis Note [id number] MD LORENZA Modi MD [address] [facility] [place] [id number] 07/15/2012 10:12:14 07/18/2012 08:11:00 [id number] MD LORENZA Modi MD [address] [facility] [place] [id number] 07/17/2013 09:45:46 07/17/2013 10:51:00 Screening for malignant neoplasm of cervix [id number] Screening mammography 54281441 Menopausal syndrome 734211353 [id number] MD LORENZA Modi MD [address] [place] [address] 07/22/2012 13:50:35 07/22/2012 16:34:34 [id number] MD LORENZA Modi MD [address] [facility],[address] [place] [address] 08/07/2014 12:49:28 08/07/2014 14:08:25 Screening for malignant neoplasm of cervix 420927504 Screening mammography 70920607 Menopausal syndrome 664797659 Hemorrhoids 54291766 Senile osteoporosis 95107256 [id number] MD LORENZA Modi MD [address] [place] [address] 08/08/2015 10:18:59 08/08/2015 16:10:47 Screening for malignant neoplasm of cervix 706201390 Z12.4 Screening mammography 24 925965 Z12.31 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 M81.0 Menopausal syndrome 1237 47965 N95.9 [id number] MD LORENZA Modi MD [address] [place] [address],[facility] [place] [address] 01/27/2016 09:37:37 01/27/2016 11:49:58 Osteoporosis 61642307 M81.0 [id number] MD LORENZA Modi MD [address] [place] [address],[facility] [place] [address] 09/14/2016 09:25:35 09/14/2016 11:58:46 Screening for malignant neoplasm of cervix 896153932 Z12.4 Screening mammography 24 070240 Z12.31 Cares for self 410588643 Z76.89 Menopausal syndrome 1237 70266 N95.9 [id number] MD LORENZA Modi MD [address] [place] [address],[facility] [place] [address] 10/07/2017 09:28:52 10/07/2017 11:37:56 Screening for malignant neoplasm of cervix 035711148 Z12.4 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 M81.0 Cares for self 955641974 Z76.89 [id number] MD LORENZA Modi MD [address] [place] [address],[facility] [place] [address] 06/03/2018 13:25:53 06/06/2018 09:16:58 Menopausal syndrome 807103364 N95.1 [id number] MD LORENZA Modi MD [address] [place] [id number] 10/25/2018 10:24:49 10/25/2018 13:01:25 Menopausal syndrome 593464584 N95.1 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 M81.0 Screening for malignant neoplasm of cervix 456461800 Z12.4 Screening mammography 24 597924 Z12.31 Screening for osteoporosis 201038527 Z13.820 Gastritis 4471619 K29.70 [id number] MD LORENZA Modi MD [address] [place] [address] [place] [address] 02/07/2019 12:52:04 02/07/2019 14:43:50 Ductal carcinoma in situ of breast 274919150 D05.12 [id number] MD LORENZA Modi MD [address] [place] [address],[place] [id number] 05/02/2019 13:54:42 05/02/2019 16:06:01 Vaginal fluid abnormal 248333638 R87.9 Lichen scl erosus et atrophicus 60939637 L90.0 [id number] MD LORENZA Modi MD [address] [place] [address], [place] [address] 06/05/2019 09:40:02 06/05/2019 11:39:28 Postmenopausal bleeding 04190707 N95.0 [id number] MD LORENZA Modi MD [address] [place] [address], [place] [id number] 11/30/2019 13:36:56 11/30/2019 14:22:24 History of clinical finding in subject 663082220 Z91.89 Screening mammography 24 981475 Z12.31 Advance care planning 71 4801284 Z71.89 Screening for osteoporosis 663076588 Z13.820 [id number] MD LORENZA Modi MD [address] [place] [address], [place] [id number] 07/02/2020 10:12:16 07/02/2020 13:21:56 Administration of viral vaccine 37396519 Z23 [id number] MD LORENZA Modi MD [address] [place] [address], [place] [address] 08/06/2020 13:13:26 08/06/2020 13:27:43 Administration of viral vaccine 75781300 Z23 [id number] MD LORENZA Modi MD [address] [place] [address], [place] [address] 11/29/2020 10:52:14 11/29/2020 12:08:11 History of clinical finding in subject 662992306 Z91.89 Screening mammography 24 543151 Z12.31 Advance care planning 71 6108696 Z71.89 Screening for osteoporosis 908491388 N95.8 [id number] MD LORENZA Modi MD [address] [place] [address],[place] [address] 02/13/2021 14:18:07 02/13/2021 15:40:55 Senile osteoporosis 74217760 M81.0 History of malignant neoplasm of breast 073192506 Z85.3 Menopausal syndrome 1237 89118 N95.1 [id number] MD LORENZA Modi MD [address] [place] [address] [address] 12/11/2021 09:30:47 12/11/2021 14:19:09 History of clinical finding in subject 381916615 Z91.89 Screening mammography 24 145354 Z12.31 Advance care planning 71 9988398 Z71.89 Menopausal syndrome 1237 39092 N95.8 [id number] MD LORENZA Modi MD [address] [place] [address] [place] [address] 06/08/2022 13:00:26 06/08/2022 15:31:24 Candidal vulvovaginitis 49024784 B37.31 Proctitis 3828896 K62.89 [id number] MD LORENZA Modi MD [address] [place] [address] [place] [address] 09/25/2022 09:49:30 09/25/2022 11:40:58 Candidal vulvovaginitis 89658034 B37.31 Genital li roque sclerosus 843078912 L90.0 [id number] MD LORENZA Modi MD [address] [place] [address] [place] [address] 12/15/2022 09:53:39 12/15/2022 10:34:07 History of clinical finding in subject 110620614 Z91.89 Screening mammography 24 742245 Z12.31 Advance care planning 71 3824111 Z71.89 Screening for osteoporosis 482725782 N95.8 Genital li roque sclerosus 272353224 L90.0 [id number] MD LORENZA Modi MD [address] [place] [address] [place] [address] 01/26/2023 09:36:33 01/26/2023 13:21:27 Dysuria 57091634 R30.0 Vaginal discharge 924456 006 N89.8 [id number] MD LORENZA Modi MD [address] [place] [address],[facility] [place] [address] 03/23/2023 09:30:27 03/23/2023 10:25:03 Atypical squamous cells of undetermined significance on cervical Papanicolaou smear 677224636 R87.610 History of malignant neoplasm of breast 815871595 Z85.3 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 M81.0 [id number] MD LORENZA Modi MD [address] [place] [address],[facility] [place] [address] 06/11/2023 10:34:33 06/11/2023 14:22:12 Candidal vulvovaginitis 33128608 B37.31 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 M81.0 [id number] MD LORENZA Modi MD [address] [place] [address],[facility] [place] [address] 09/13/2023 14:27:57 09/13/2023 16:01:39 Candidal vulvovaginitis 06655582 B37.31 [id number] MD LORENZA Modi MD [address] [place] [address] [place] [address] 12/17/2023 10:47:39 12/17/2023 11:59:42 History of clinical finding in subject 401092621 Z91.89 Screening mammography 24 532677 Z12.31 Advance care planning 71 5880993 Z71.89 Screening for osteoporosis 554759772 N95.8 Vaginal discharge 743634 006 N89.8 Health Concerns Section Related Observation LastModified by Organization Detai ls LastModified Time None Recorded Concern Status LastModified by Organization Details LastModified Time None Recorded Advance Directives Directive None Recorded Payers Encounter Date Sequence Insurance Name Policy Number Policy Summers Covered Member ID Summers Member ID Guarantor Name 01/26/2023 1 [employer]-ID: SECURE [id number] (MEDICARE REPLACEMENT PPO) [id number] Mary Hollis [id number] Mary Hollis 03/23/2023 1 [employer]-ID: SECURE [id number] (MEDICARE REPLACEMENT PPO) [id number] Mary Hollis [id number] Mary Hollis 06/11/2023 1 [employer]-ID: SECURE [id number] (MEDICARE REPLACEMENT PPO) [id number] Mary Hollis [id number] Mary Hollis 09/13/2023 1 [employer]-ID: SECURE [id number] (MEDICARE REPLACEMENT PPO) [id number] Mary Hollis [id number] Mary Hollis 12/17/2023 1 [employer]-ID: SECURE [id number] (MEDICARE REPLACEMENT PPO) [id number] Mary Hollis [id number] Mary Hollis Notes Date Note Type [...] prometrium 100 mg daily from her Internet wood handler. She has a past history of breast [...] her lichen sclerosis. Lorenza Robison MD [address] [facility],[address], [place], [address], [place] - [facility], 01/26/2023 12:39:12 03/23/2023 text/html She is here for a repeat pap after ASCUS without HR HPV, and also to discuss her recent bone density that showed her T score dropped from -3.3 to -3.7. She sees the repairing calibrator, Dr. Douglas, and the bone density was [...] breast DCIS in 01/2019. Lorenza Robison MD [address] [place] [address],[address], [place], [phone], [facility] - [facility], 03/23/2023 10:19:05 06/11/2023 text/html She is here [...] referral to Dr. Espitia's new office in [place] to manage her osteoporosis. Also she would [...] from -3.3 to -3.7. She sees the repairing calibrator, Dr. Douglas, and the bone density was [...] and she should discus this with her repairing calibrator.She is given copies of her most recent 2 bone density tests for her records. she will call their office to set up a telehealth.If this pap is normal then repeat pap at ne4xt annual. If this pap has ASCUS again then colpo. We discussed this at length, all questions answered. Lorenza Robison MD [address], [place], [address], [email or web address] [facility] [employer] [facility], 06/11/2023 11:03:17 09/13/2023 text/html She is here for a one week history of vaginal pruritus. Lorenza Robison MD [address] [facility],[address], [place], [phone], [email or web address] [facility] [employer] [facility], 09/13/2023 15:53:02 12/17/2023 text/html She is here for annua, doing well. The desitin works well, and the clobetasol improves her symptoms of lichen sclerosis. Her repairing calibrator manages her osteoporosis. She would like wet willian as she wonders if she has yeast though she has no symptoms at the moment.Her Internet nurse educator gives her the estradiol, she has a pat history of breast cancer. Note from 2022: She is here for annual, doing well. Her onsite case manager was concerned that she might have an [...] for topical mangement of her lichen sclerosis.Her repairing calibrator manages her osteoporosis. she has a telehealth nurse educator doctor who gives her the HRT despite her past history of breast cancer.Bone density last year was stable osteoporosis. Lorenza Robison MD [address], [place], [address], [email or web address] [facility], 12/17/2023 11:44:10 OBGyn Episode No OBEpisode recorded.
== END 2024-09-27 14:23 | disposition home or self-care (01) ==
LOC: HO.HMCFM 10:42
PROVIDERS: PCP Internal Medicine; Visit Provider Physician Assistant
DX: M25.511 Pain in right shoulder (principal); M54.2 Cervicalgia

== ENCOUNTER → 2024-09-27 10:42 | Outpatient (BNVA) | payer MEDICARE, SELFPAY | PROVIDERS: PCP Internal Medicine; Visit Provider Physician Assistant | DX: M25.511 Pain in right shoulder (principal); M54.2 Cervicalgia; J44.9 Chronic obstructive pulmonary disease, unspecified; M81.0 Age-related osteoporosis without current pathological fracture; Z87.891 Personal history of nicotine dependence | CPT/HCPCS: 96127; 99212 ==

== ENCOUNTER 2025-01-02 10:43 | Outpatient (AMB) | payer MEDICARE, SELFPAY ==
--- NOTE | 2025-01-02 10:52 | MHC.PC.OV ---
Vital Signs 01/02/25 10:55 01/02/25 11:01 Height 5 ft 1 in Weight 99 lb 2 oz BMI 18.7 BP 148/68 H 136/73 Blood Pressure Location Lt brachial Lt brachial Position Sitting Sitting Respiration 14 Pulse 99 Pulse Source Pulse Oximeter Temp 97.2 F Temp Source Oral Pulse Oximetry (%) 97 Intake Visit Reasons: Hip pain Intake Note: Right hip pain. Right arm pain, worsening. Hospice Care Consultant Required: No Allergies mussels Adverse Reaction (Severe, Verified 01/02/25 10:53) Vomiting azithromycin Adverse Reaction (Intermediate, Verified 01/02/25 10:53) Stomach Upset cefaclor (From Ceclor) Adverse Reaction (Verified 01/02/25 10:53) Hives Tobacco use date assessed: 01/02/25 Fall risk assessment: No Falls in past year Last assessed Fall Risk: 01/02/25 Dental Screening Dental Screen Date: 01/02/25 Did you have a dental visit in the last 12 months?: Yes Did you have a dental problem in the last 6 months where you did not have access to dental care?: No Was dental information given to patient?: Patient has dentist HPI HPI Comments History of Present Illness Details The patient is an 83 year old female with a past medical history of asthma, osteoporosis, asthma, hyperlipidemia, h/o breast cancer presenting for preop cardiac Seen in September-had developed right shoulder and upper arm pain since August. Had xray with mild arthritis. She has difficulty raising the arm beyond 90 degrees. Abduction beyone this point, external rotation, supination increase pain levels. worsened after hysterectomy surgery and when she went to reach out and twist a knob on her doorway thereafter. She completed a course of physical therapy She reports pain in the right hip joint. Worsens with walking, laying on the hip. Fairly localized. No LE weakness. Patient underwent total radical hysterectomy with BSO under general anesthesia with Dr Mackenzie. Endocrine-osteoporosis. Follows with Dr Espitia. DXA scanned. Rsp-asthma. On albuterol as needed, symbicort 160/4.5-insurance no longer covered. Has been intolerant of generics moreover they have not provided symptom relief CV-on crestor 10mg daily. Last LDL at goal. Lipid panel scanned (ordered by Dr Copeland) Heme/Onc-History of breast cancer left upper outer quadrant s/p lumpectomy. Was on tamoxifen-stopped 2/2 side effects. 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 She had CT chest & abdomen, blood work-benign. Colonoscopy Mar 2024-normal ROS see HPI PHYSICAL EXAM: GENERAL: Alert and oriented x 3. NAD EYES: EOMI. Anicteric. HENT: scattered tender submandibular, ant & post cervical LN. LUNGS: Clear to auscultation bilaterally. CARDIOVASCULAR: Regular rate and rhythm. No murmur. MSK: ttp right anterior shoulder joint and the biceps region. passive abduction elicits pain. Empty can test +. Speed's test elicits pain. Recovery Operator Helper strength is 5/5 bilaterally. Sensation intact. Radial pulses 2+ bilaterally. ABDOMEN: Soft, non-tender +bs EXTREMITIES: No edema. Non-tender. SKIN: No rashes or lesions. Warm. NEUROLOGIC: No focal neurological deficits. CN II-XII grossly intact PSYCHIATRIC: Cooperative. 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 Mammogram abnormal Vitamin D deficiency Underweight Senile osteopenia Seasonal allergies Menopausal syndrome History of malignant neoplasm of breast Bilateral cataracts Asthma Arthritis Surgical History H/O: hysterectomy H/O section H/O lumpectomy H/O colonoscopy Family History Mother Dementia Father Emphysema lung Social History Housing: House Alcohol intake: current Patient Tobacco Use Status: Former Tobacco user Cigarettes Per Day: 6 Years Smoked: 10 e-Cigarette/Vaping Use: Never Used Second Hand Smoke Exposure: No service: Yes Current occupational status: retired Cognitive needs: No Hearing needs: Yes (Hearing aid) Vision needs: Yes (reading glasses, bilateral cataracts) Questionnaire Thrive Questionnaire Date Thrive assessed: 08/17/24 I am a: Patient What is your living situation today?: I have a steady place to live Within the past 12 months, did the food you bought not last and you didn't have the money to get more?: Never true Within the past 12 months, did you worry whether your food would run out before you got money to buy more?: Never true Do you have trouble paying for medicines?: No Do you have trouble getting transportation to medical appointments?: No Do you have trouble paying your heating and electricity bill?: No Do you have trouble taking care of your child, family member or friend?: No Do you have trouble with day-to-day activities such as bathing, preparing meals, shopping, managing finances, etc.?: No Are you currently unemployed and looking for a job?: No Are you interested in more education?: I choose not to answer this question Please select the resources that you would like help with: None Currently or been in a relationship where the following occur: No concerns reported THRIVE Score: 0 AUDIT C Alcohol Use Questionnaire (AUDIT-C) 1. How often do you have a drink containing alcohol?: 2-3 times a week 2. How many drinks containing alcohol do you have on a typical day when you are drinking?: 1 or 2 3. How often do you have six or more drinks on one occasion?: Never Total Score: 3 GARCIA-7 AMB Questionnaire GARCIA-7 Date GARCIA - 7 assessed: 09/27/24 Source: Developed by Drs. Ronnie Russell, Nay Frank, Hero Mcintosh and colleagues, with an educational simone from [employer]. Physical exam (Primary Care) Vital Signs: Last Vital Signs Temp 97.2 F 01/02/25 10:55 Pulse 99 01/02/25 10:55 Resp 14 01/02/25 10:55 BP 136/73 01/02/25 11:01 Pulse Ox 97 01/02/25 10:55 BMI result Body Mass Index 18.7 Tobacco/Smoking Status: Tobacco use Status Tobacco use date assessed 01/02/25 01/02/25 10:58 Patient Tobacco Use Status Former Tobacco user 01/02/25 10:58 e-Cigarette/Vaping Use Never Used 01/02/25 10:58 Thrive Assessment: Date of Thrive Assessment Date Thrive assessed 08/17/24 01/02/25 10:58 Currently or been in a relationship where the following occur: No concerns reported Coding Level of Care Code Est Pt Level 4 (80167) Complex EM visit Add On G2211 Diagnoses Right shoulder pain, unspecified chronicity M25.511 Chronicity: unspecified Right hip pain M25.551 Assessment & Plan Assessment & Plan (1) Right shoulder pain: Code(s): M25.511 - Pain in right shoulder Category: Medical Qualifiers: Chronicity: unspecified Qualified Code(s): M25.511 - Pain in right shoulder (2) Right hip pain: Code(s): M25.551 - Pain in right hip Category: Medical Plan Right shoulder pain x 4 months, persistent despite conservative therapy-otc topical and oral analgesics. completed xray, PT. MR ordered. Referral to orthopedics Right hip pain most consistent with bursitis-prednisone x 5 days sent. xray ordered Orders: Orders MR shoulder RT wo con 01/02/25 M25.511 - Pain in right shoulder XR hip RT min 2V 01/02/25 M25.551 - Pain in right hip Referrals Orthopedics Referral M25.511 - Pain in right shoulder Medications: New prednisone 40 mg (2 x 20 mg) PO DAILY 10 tabs 0RF lorazepam Take one tab oral 90 minutes prior to MRI. Repeat 15-30 minutes prior to exam if needed for persistent exam 2 tabs 0RF anxiety
[2025-01-02 10:55] VITALS: BP 148/68; PULSE 99; RESP 14; TEMP 36.2; O2SAT 97; BMI 18.7
[2025-01-02 11:01] VITALS: BP 136/73
--- OUTSIDE RECORDS SUMMARY | 2025-01-02 11:26 | XMS_ITS | Encounter Summary ---
Author Organization [facility] Address [address] [place] [address] Phone Care Team Providers Care Supervisor Major Appliance Assembly Name Role Phone Bety Patel MD Primary Care Provider [phone] Encounter Details Date Type Department Care Team (Late Contact Info) Description 02/03/2024 Ancillary Orders [address] [address] System, Provider Not In, PhD Partners [address] [address] Social History Tobacco Use Types Packs/Day Years Used Date Smoking Tobacco: Former Cigarettes Smokeless Tobacco: Never Alcohol Use Standard Drinks/Week Comments Yes 7 (1 standard drink = 0.6 oz pur e alcohol) Education Answer Date Recorded Are you interested in more education? Not on tatyana e 07/16/2023 Are you concerned about learning? Not on file 07/16/2023 No 07/16/2023 No 07/16/2023 Digital Access Answer Date Recorded No 07/16/2023 No 07/16/2023 Reliable internet access at home? Not on file 07/16/2023 Device with a working camera? Not on file Comments Unknown Sex and Gender Information Value Date Recorded Sex Assigned at Female 01/30/2024 10:09 AM EDT Legal Sex Female 3:15 PM EST Gender Identity Female 01/30/2024 10:09 AM EDT Sexual Orientation Straight 01/30/2024 10 :09 AM EDT documented as of this encounter Plan of Treatment Upcoming Encounters Date Type Department Care Team (Late st Contact Info) Description 01/26/2025 10:00 AM EDT Office Visit [facility] [address] [place] [address] [place] [address] Kina Espitia MD [address] [place] [id number] [email or web address] documented as of this encounter Results * DXA Outside (No Interpretation) (02/13/2022 12:00 AM EDT) Narrative Record, 02/03/2024 1:37 PM EDT This study is for PACS storage only and not for interpretation. Procedure Note Record, 02/03/2024 This study is for PACS storage only and not for interpretation. us Provider Not In System PhD IMG OUTSIDE IMAGING W /OUT INTERPRETATION Final Result documented in this encounter Visit Diagnoses Not on filedocumented in this encounter Care Teams Supervisor Major Appliance Assembly Relationship Specialty Start Date End Date Bety Patel MD PCP - General Internal Medicine 06/01/23 documented as of this encounter Additional Source Comments The information contained in this document represents components of the legal health record. It is not the complete legal health record.[facility]
--- OUTSIDE RECORDS SUMMARY | 2025-01-02 11:26 | XMS_ITS ---
Author Name [facility] Organization Unknown Care Team Organization Name Specialty Phone Email Start Date End Da te [facility] Termed, PROVIDER Primary Care 04/07/202212/29
--- OUTSIDE RECORDS SUMMARY | 2025-01-02 11:26 | XMS_ITS | Clinical Summary ---
Author Organization [facility] Address [address] [place] [address] Care Team Providers Care Floatlight Loading Supervisor Name Role Phone Unavailable Primary Care Provider [...] 92 06/26/2019 10:35 AM EST Temperature 37.3 C (99.1 F) 06/26/2019 10:35 AM EST Respiratory Rate - - Oxygen Saturation - [...] 1-dose 75+ series) 2014 Influenza Vaccine (#1) 2025 9, 01/26/2016, 02/27/2014, Additional history exists Pneumococcal Vaccine Completed 08/05/2015, 09/01/2011, 08/14/2002 Hepatitis B Vaccines Aged Out No long er eligible based on patient's age to complete this topic RSV Ped < 20 months Aged Out No longe r eligible based on patient's age to complete this topic
== END 2025-01-02 11:30 | disposition home or self-care (01) ==
LOC: HO.HMCFM 10:43
PROVIDERS: PCP Internal Medicine; Visit Provider Internal Medicine
DX: M25.511 Pain in right shoulder (principal); M25.551 Pain in right hip

== ENCOUNTER → 2025-01-02 10:43 | Outpatient (BNVA) | payer MEDICARE, SELFPAY | PROVIDERS: PCP Internal Medicine; Visit Provider Internal Medicine | DX: Z01.810 Encounter for preprocedural cardiovascular examination (principal); M25.551 Pain in right hip; M25.511 Pain in right shoulder; J45.909 Unspecified asthma, uncomplicated; M81.0 Age-related osteoporosis without current pathological fracture; Z85.3 Personal history of malignant neoplasm of breast | CPT/HCPCS: 99212 ==

== ENCOUNTER 2025-02-26 08:34 | Outpatient (AMB) | payer MEDICARE, SELFPAY ==
--- OUTSIDE RECORDS SUMMARY | 2025-02-22 07:38 | XMS_ITS | Encounter Summary ---
Author Organization [facility] Address [address] [place] [address] Care Team Providers Care Seo Engineer Name Role Phone Bety Hdez MD Primary Care Provider [phone] Reason for Referral * Imaging (Routine) - Authorized Specialty Diagnoses / Procedures Referred By Contac t Referred To Contact Radiology Diagnoses Other specified menopausal and perimenopausal disorders Procedures BD Bone Density DXA Axial Skeleton Lorenza Robison MD [address] [place] [phone] Phone: tel: fax: [address] [phone] Phone: tel: Referral ID Status Reason Start Date Expiration Date V isits Requested Visits Authorized [id number] Authorized 12/29/2024 12/29/2025 1 1 Reason for Visit * Imaging (Routine) - Authorized Specialty Diagnoses / Procedures Referred By Contac t Referred To Contact Radiology Diagnoses Other specified menopausal and perimenopausal disorders Procedures BD Bone Density DXA Axial Skeleton Lorenza Robison MD [address] [place] [phone] Phone: tel: fax: [address] [phone] Phone: tel: Referral ID Status Reason Start Date Expiration Date V isits Requested Visits Authorized [id number] Authorized 12/29/2024 12/29/2025 1 1 Encounter Details Date Type Department Care Team (Latest Contact Info) Description 02/22/2025 7:38 AM EDT - 02/22/2025 11:59 PM EDT Hospital Encounter [facility] Bone Density [address] [place] [address] Other specified menopausal and perimenopausal disorders Discharge Disposition: Home or Self Care Social History Tobacco Use Types Packs/Day Years Used Date Smoking Tobacco: Former Smokeless Tobacco: Never Alcohol Use Standard Drinks/Week Comments Yes 0 (1 standard drink = 0.6 oz pur e alcohol) Comments No Sex and Gender Information Value Date Recorded Sex Assigned at Female 06/30/2024 3:31 PM EST Legal Sex Female 12:14 PM EST Gender Identity Female 06/30/2024 3:31 PM EST Sexual Orientation Straight 06/30/2024 3: 31 PM EST documented as of this encounter Medications at Time of Discharge albuterol HFA (PROAIR HFA ; PROVENTIL HFA ; VENTOLIN HFA) 90 mcg/actuation inhaler Inhale 2 puffs into the lungs every 6 (six) hours as needed for wheezing. budesonide-formote roL (Symbicort) 160-4.5 mcg/actuation inhaler Inhale 2 Puffs into the lungs 2 times daily. BRAND NAME MEDICALLY NECESSARY, NO SUBSTITUTIONS--R inse mouth out after use. 01/02/2021 cholecalciferol (VITAMIN D-3) 25 mcg (1,000 unit) tablet Take 1,000 Units by mouth daily. - Oral estradioL (ESTRACE) 0.5 mg tablet Take 0.5 mg by mouth at bedtime. ezetimibe (ZETIA) 10 mg tablet Take 1 tablet (10 mg total) by mouth 1 (one) time each day. fluticasone propionate (FLONASE) 50 mcg/actuation nasal spray 2 Sprays by Nasal route daily. 08/23/2014 halobetasol (ULTRAVATE) 0.05 % cream apply once daily for up to 2 weeks, repeat as needed. 05/16/2009 hydrocortisone (ANUSOL-HC) [address] 1 Suppository rectally daily as needed for Hemorrhoids. 08/05/2015 inhalational spacing device (Aerochamber Plus Flow-Vu) inhaler use with inhaler as directed. 12/03/2006 Lactobacillus acidophilus (PROBIOTIC ORAL) Take by mouth daily. multivit-min/iron/ folic acid/K (ADULTS MULTIVITAMIN ORAL) Take by mouth daily. nystatin-triamcino lone (MYCOLOG II) cream Apply twice daily to affected area until gone. 05/27/2016 polyethylene glycol (PEG) 17 gram/dose oral powder Take 17 g by mouth daily. progesterone (Prometrium) 100 mg capsule Take 100 Capsules by mouth daily. rosuvastatin (CRESTOR) 5 mg tablet Take 5 mg by mouth daily. triamcinolone (KENALOG) 0.1 % ointment Apply topically twice a day as needed for comfort 08/29/2013 documented as of this encounter Discharge Disposition Disposition Code Departure Means Destination Home or Self Care documented in this encounter Plan of Treatment Upcoming Encounters Date Type Department Care Team (Late st Contact Info) Description 01/08/2026 10:00 AM EDT Office Visit General Surgery - [address] [phone] Bety Harrington MD [address] [place] [phone] documented as of this encounter Procedures Procedure Name Priority Date/Time Associated Diagnosis Comments BD BONE DENSITY DXA AXIAL SKELETON Routine 02/22/2025 8:10 AM EDT Other specified menopausal and perimenopausal disorders documented in this encounter Results * BD Bone Density DXA Axial Skeleton (02/22/2025 8:10 AM EDT) Anatomical Region Laterality Modality Wrist, Hip, L-spine Bone Densito metry 02/22/2025 10:1 9 AM EDT Impressions 02/22/2025 10:21 AM EDT 1. Osteoporosis. There has been an increase of 0.9% in bone mineral density in the lumbar spine since the prior examination of 02/18/2024. There has been a decrease of 1.6% in bone mineral density in the right femur and an increase of 4.5% in bone mineral density in the left femur. 2. FRAX analysis yields a 10-year probability of major osteoporotic fracture of 26.6% and a 10-year probability of hip fracture of 13.5%. Code 71571 -------- FINAL REPORT -------- Dictated By: Sam Gaffney Dictated Date: 02/22/2025 10:19 ET Assigned Physician: Sam Gaffney Reviewed and Electronically Signed By: Sam Gaffney Signed Date: 02/22/2025 10:21 ET Workstation ID: [id number] Transcribed By: Self Edit Transcribed Date: 02/22/2025 10:19 ET Narrative 02/22/2025 10:21 AM EDT HISTORY: The patient is an 84-year-old postmenopausal female with clinical concern for metabolic bone disease. FINDINGS: Dual energy x-ray absorptiometry of the lumbar spine and femurs is performed. The mean bone mineral density at L1-3 is 0.707 gm/cm2 which is 60% of that of young normals and 83% of that of age matched controls. This yields a T-score of -3.9 and a Z-score of -1.2 which is diagnostic of osteoporosis. The mean bone mineral density of the femurs bilaterally is 0.566 gm/cm2 which is 56% of that of young normals and 86% of that of age matched controls. This yields a T-score of -3.5 and a Z-score of -0.7 which is diagnostic of osteoporosis. The T-score of the right femoral neck is -3.8 and that of the left femoral neck is -4.0 which is diagnostic of osteoporosis. Procedure Note Sam Gaffney MD - 02/22/2025 HISTORY: The patient is an 84-year-old postmenopausal female withclinical concern for metabolic bone disease. FINDINGS: Dual energy x-ray absorptiometry of the lumbar spine and femursis performed. The mean bone mineral density at L1-3 is 0.707 gm/cm2 whichis 60% of that of young normals and 83% of that of age matched controls.This yields a T-score of -3.9 and a Z-score of -1.2 which is diagnostic ofosteoporosis. The mean bone mineral density of the femurs bilaterally is 0.566 gm/ly7opfls is 56% of that of young normals and 86% of that of age matchedcontrols. This yields a T-score of -3.5 and a Z-score of -0.7 which isdiagnostic of osteoporosis. The T- score of the right femoral neck is -3.8and that of the left femoral neck is -4.0 which is diagnostic ofosteoporosis. IMPRESSION: 1. Osteoporosis. There has been an increase of 0.9% in bone mineraldensity in the lumbar spine since the prior examination of 02/18/2024.There has been a decrease of 1.6% in bone mineral density in the rightfemur and an increase of 4.5% in bone mineral density in the left femur. 2. FRAX analysis yields a 10-year probability of major osteoporoticfracture of 26.6% and a 10-year probability of hip fracture of 13.5%. Code 58964 -------- FINAL REPORT -------- Dictated By: Sam Gaffney Dictated Date: 02/22/2025 10:19 ET Assigned Physician: Sam Gaffney Reviewed and Electronically Signed By: Sam Gaffney Signed Date: 02/22/2025 10:21 ET Workstation ID: [id number] Transcribed By: Self Edit Transcribed Date: 02/22/2025 10:19 ET Lorenza Robison MD IMG DXA PROCEDURES Final Res ult documented in this encounter Visit Diagnoses Diagnosis Other specified menopausal and perimenopausal disorders documented in this encounter Care Teams Seo Engineer Relationship Specialty Start Date End Date Bety Hdez MD [address] [place] [phone] PCP - General Internal Medicine 07/28/24 documented as of this encounter
--- OUTSIDE RECORDS SUMMARY | 2025-02-22 07:39 | XMS_ITS | Encounter Summary ---
Author Organization [facility] Address [address] [place] [address] Care Team Providers Care Blast Hole Driller Name Role Phone Bety Hdez MD Primary Care Provider [phone] Reason for Referral * Imaging (Routine) - Authorized Specialty Diagnoses / Procedures Referred By Red lang Referred To Contact Radiology Diagnoses Encounter for screening mammogram for malignant neoplasm of breast Procedures MG Mammo Digital Screening w Lorenza Ladd MD [address] [place] [phone] Phone: tel: fax: [address] [phone] Phone: tel: Referral ID Status Reason Start Date Expiration Date V isits Requested Visits Authorized [id number] Authorized 12/28/2024 12/28/2025 1 1 Reason for Visit * Imaging (Routine) - Authorized Specialty Diagnoses / Procedures Referred By Red lang Referred To Contact Radiology Diagnoses Encounter for screening mammogram for malignant neoplasm of breast Procedures MG Mammo Digital Screening w Lorenza Ladd MD [address] [place] [address] Phone: tel: fax: [address] [phone] Phone: tel: Referral ID Status Reason Start Date Expiration Date V isits Requested Visits Authorized [id number] Authorized 12/28/2024 12/28/2025 1 1 Encounter Details Date Type Department Care Team (Latest Contact Info) Description 02/22/2025 7:39 AM EDT - 02/22/2025 11:59 PM EDT Hospital [facility] [address] [phone] Encounter for screening mammogram for malignant neoplasm of breast Discharge Disposition: Home or Self Care Social [...] PM EST documented as of this encounter Last Filed Vital Signs Vital Sign Reading Time Taken Comments Blood Pressure - - Pulse - - Temperature - - Respiratory Rate - - Oxygen Saturation - - Inhaled Oxygen Concentration - - Weight 45.4 kg (100 lb) 02/22/2025 8:11 AM EDT Height 157.5 cm (5' 2 ) 02/22/2025 8:11 AM EDT Body Mass Index 18.29 02/22/2025 8:11 AM EDT documented in this encounter Medications at Time of Discharge [...] 10:00 AM EDT Office Visit General Surgery [address] [place] [phone] Bety Harrington MD [address] [place] [phone] documented as of this encounter Procedures Procedure Name Priority Date/Time Associated Diagnosis Comments MG MAMMO DIGITAL SCREENING W JERZY BILAT Routine 02/22/2025 8:22 AM EDT Encounter for screening mammogram for malignant neoplasm of breast documented in this encounter Results * MG Mammo Digital Screening w Jerzy bilat (02/22/2025 8:22 AM EDT) Anatomical Region Laterality Modality Breast Bilateral Mammography 02/22/2025 8:32 AM EDT Impressions 02/22/2025 8:38 AM EDT No mammographic evidence of new or recurrent malignancy. No suspicious interval change. A negative mammogram in the presence of a clinically suspicious palpable abnormality does not preclude the possibility of malignancy or alter the indications for biopsy. ASSESSMENT: BI-RADS 2: BENIGN RECOMMENDATION(S): 1: Routine screening mammogram BILATERAL in 1 year. [facility] location[facility] [address], [address] -------- FINAL REPORT -------- Dictated By: Jm Alvarenga Dictated Date: 02/22/2025 08:32 ET Assigned Physician: Jm Alvarenga Reviewed and Electronically Signed By: Jm Alvarenga Signed Date: 02/22/2025 08:38 ET Workstation ID: [id number] Transcribed By: Self Edit Transcribed Date: 02/22/2025 08:32 ET Narrative 02/22/2025 8:38 AM EDT EXAM: SCREENING MAMMOGRAPHY, BILATERAL HISTORY: SCREENING. Surgical scar upper outer left breast. Personal history of left breast cancer. COMPARISON: 02/18/24, 02/16/23, 02/13/22, 02/12/21 TECHNIQUE: Synthesized CC and MLO projections of each breast. Tomosynthesis of each breast in the CC and MLO projections. ADDITIONAL IMAGING: None Computer-aided detection was employed with the iCAD Smove AI 3-D. TISSUE DENSITY: The breasts are heterogeneously dense, which may obscure small masses. (BI-RADS category C) FINDINGS: There are diffuse punctate and amorphous calcifications on each side similar to previous. RIGHT BREAST: No suspicious mass. No suspicious calcification. No distortion. No additional suspicious right breast findings LEFT BREAST: There is evidence of prior lumpectomy. No additional suspicious left breast findings Procedure Note Jm Alvarenga MD - 02/22/2025 EXAM: SCREENING MAMMOGRAPHY, BILATERAL HISTORY: SCREENING. Surgical scar upper outer left breast. Personalhistory of left breast cancer. COMPARISON: 02/18/24, 02/16/23, 02/13/22, 02/12/21 TECHNIQUE: Synthesized CC and MLO projections of each breast.Tomosynthesis of each breast in the CC and MLO projections. ADDITIONAL IMAGING: None Computer-aided detection was employed with the iCAD ProFound AI 3-D. TISSUE DENSITY: The breasts are heterogeneously dense, which may obscuresmall masses. (BI-RADS category C) FINDINGS: There are diffuse punctate and amorphous calcifications on each sidesimilar to previous. RIGHT BREAST: No suspicious mass. No suspicious calcification. No distortion. Noadditional suspicious right breast findings LEFT BREAST: There is evidence of prior lumpectomy. No additional suspicious leftbreast findings IMPRESSION: No mammographic evidence of new or recurrent malignancy. No suspicious interval change. A negative mammogram in the presence of a clinically suspicious palpableabnormality does not preclude the possibility of malignancy or alter theindications for biopsy. ASSESSMENT: BI-RADS 2: BENIGN RECOMMENDATION(S): 1: Routine screening mammogram BILATERAL in 1 year. [facility] [address] [place], [address] -------- FINAL REPORT -------- Dictated By: Jm Alvarenga Dictated Date: 02/22/2025 08:32 ET Assigned Physician: Jm Alvarenga Reviewed and Electronically Signed By: Jm Alvarenga Signed Date: 02/22/2025 08:38 ET Workstation ID: [id number] Transcribed By: Self Edit Transcribed Date: 02/22/2025 08:32 ET us Lorenza Robison MD IMG BI PROCEDURES Final Resu lt documented in this encounter Visit Diagnoses Diagnosis Encounter for screening mammogram for malignant neoplasm of breast documented in this encounter Care Teams Blast Hole Driller Relationship Specialty Start Date End Date Bety Hdez MD [address] [place] [phone] PCP - General Internal Medicine 07/28/24 documented as of this encounter
--- NOTE | 2025-02-26 08:36 | A.OFFPC_ITS ---
Vital Signs 02/26/25 08:39 Height 5 ft 1 in Weight 98 lb 8 oz BMI 18.6 BP 128/72 Blood Pressure Location Lt brachial Position Sitting Respiration 14 Pulse 100 Pulse Source Pulse Oximeter Pulse Oximetry (%) 96 Oxygen Delivery Method Room Air Intake Visit Reasons: 1/2h f/up Intake Note: Follow up Digital Marketing Apprentice Required: No Allergies mussels Adverse Reaction (Severe, Verified 02/26/25 08:38) Vomiting azithromycin Adverse Reaction (Intermediate, Verified 02/26/25 08:38) Stomach Upset cefaclor (From Ceclor) Adverse Reaction (Verified 02/26/25 08:38) Hives Tobacco use date assessed: 01/02/25 Dental Screening Dental Screen Date: 01/02/25 HPI HPI Comments History of Present Illness Details The patient is an 84 year old female with a past medical history of asthma, osteoporosis, asthma, hyperlipidemia, h/o breast cancer presenting for follow up MSK --Seen in September-had developed right should er and upper arm pain since August. Had xray with mild arthritis. She had ongoing difficulty raising the arm beyond 90 degrees, even less without pain. Difficulty lifting items. Abduction external rotation, supination increase pain levels. Worsened after hysterectomy surgery and when she went to reach out and twist a knob on her doorway thereafter. She completed a course of physical therapy. She was walk in urgent care and received a steroid injection which did decrease pain levels. She has an appointment upcoming with orthopedics. --She reports pain in the right hip join t. Worsens with walking, laying on the hip. Fairly localized. No LE weakness. Some interval improvement Endocrine-osteoporosis. Follows with Dr Espitia. DXA scanned. Rsp-asthma. On albuterol as needed, symbicort 160/4.5-insurance no longer covered. Has been intolerant of generics moreover they have not provided symptom relief CV-on crestor 10mg daily. Last LDL at goal. Lipid panel scanned (ordered by Dr Copeland) Heme/Onc-History of breast cancer left upper outer quadrant s/p lumpectomy. Was on tamoxifen-stopped 2/2 side effects. 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 She had CT chest & abdomen, blood work-benign. Patient underwent total radical hysterectomy with BSO under general anesthesia with Dr Mackenzie. Colonoscopy Mar 2024-normal [id number]-[id number]. ROS see HPI PHYSICAL EXAM: GENERAL: Alert and oriented x 3. NAD EYES: EOMI. Anicteric. HENT: scattered tender submandibular, ant & post cervical LN. LUNGS: Clear to auscultation bilaterally. CARDIOVASCULAR: Regular rate and rhythm. No murmur. MSK: ttp right anterior shoulder joint and the biceps region. passive abduction elicits pain. Empty can test +. Speed's test elicits pain. Records Associate strength is 5/5 bilaterally. Sensation intact. Radial pulses 2+ bilaterally. ABDOMEN: Soft, non-tender +bs EXTREMITIES: No edema. Non-tender. SKIN: No rashes or lesions. Warm. NEUROLOGIC: No focal neurological deficits. CN II-XII grossly intact PSYCHIATRIC: Cooperative. 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 Mammogram abnormal Vitamin D deficiency Underweight Senile osteopenia Seasonal allergies Menopausal syndrome History of malignant neoplasm of breast Bilateral cataracts Asthma Arthritis Surgical History H/O: hysterectomy H/O section H/O lumpectomy H/O colonoscopy Family History Mother Dementia Father Emphysema lung Social History (Updated 02/26/25 @ 08:38 by Monica Galicia [facility]) Housing: House Alcohol intake: current Patient Tobacco Use Status: Former Tobacco user Cigarettes Per Day: 6 Years Smoked: 10 e-Cigarette/Vaping Use: Never Used Second Hand Smoke Exposure: No service: Yes Current occupational status: retired Cognitive needs: No Hearing needs: Yes (Hearing aid) Vision needs: Yes (reading glasses, bilateral cataracts) Questionnaire Thrive Questionnaire Date Thrive assessed: 08/17/24 I am a: Patient What is your living situation today?: I have a steady place to live Within the past 12 months, did the food you bought not last and you didn't have the money to get more?: Never true Within the past 12 months, did you worry whether your food would run out before you got money to buy more?: Never true Do you have trouble paying for medicines?: No Do you have trouble getting transportation to medical appointments?: No Do you have trouble paying your heating and electricity bill?: No Do you have trouble taking care of your child, family member or friend?: No Do you have trouble with day-to-day activities such as bathing, preparing meals, shopping, managing finances, etc.?: No Are you currently unemployed and looking for a job?: No Are you interested in more education?: I choose not to answer this question Please select the resources that you would like help with: None Currently or been in a relationship where the following occur: No concerns reported THRIVE Score: 0 GARCIA-7 AMB Questionnaire GARCIA-7 Date GARCIA - 7 assessed: 09/27/24 Source: Developed by Drs. Ronnie Russell, Nay Frank, Hero Mcintosh and colleagues, with an educational simone from [employer]. Physical exam (Primary Care) Vital Signs: Last Vital Signs Pulse 100 02/26/25 08:39 Resp 14 02/26/25 08:39 BP 128/72 02/26/25 08:39 Pulse Ox 96 02/26/25 08:39 Oxygen Delivery Method Room Air 02/26/25 08:39 BMI result Body Mass Index 18.6 Tobacco/Smoking Status: Tobacco use Status Tobacco use date assessed 01/02/25 02/26/25 08:37 Patient Tobacco Use Status Former Tobacco user 02/26/25 08:38 e-Cigarette/Vaping Use Never Used 02/26/25 08:38 Thrive Assessment: Date of Thrive Assessment Date Thrive assessed 08/17/24 02/26/25 08:37 Currently or been in a relationship where the following occur: No concerns reported Coding Level of Care Code Est Pt Level 4 (48510) Complex EM visit Add On G2211 Diagnoses Right shoulder pain, unspecified chronicity M25.511 Chronicity: unspecified Age-related osteoporosis without current pathological fracture M81.0 Osteoporosis type: age-related Presence of current pathological fracture: without current pathological fracture Chronic obstructive pulmonary disease, unspecified COPD type J44.9 COPD type: unspecified COPD Assessment & Plan Assessment & Plan (1) Right shoulder pain: Code(s): M25.511 - Pain in right shoulder Category: Medical Qualifiers: Chronicity: unspecified Qualified Code(s): M25.511 - Pain in right shoulder (2) Osteoporosis: Code(s): M81.0 - Age-related osteoporosis without current pathological fracture Category: Medical Qualifiers: Osteoporosis type: age-related Presence of current pathological fracture: without current pathological fracture Qualified Code(s): M81.0 - Age- related osteoporosis without current pathological fracture (3) COPD (chronic obstructive pulmonary disease): Code(s): J44.9 - Chronic obstructive pulmonary disease, unspecified Category: Medical Qualifiers: COPD type: unspecified COPD Qualified Code(s): J44.9 - Chronic obstructive pulmonary disease, unspecified Plan Right shoulder pain-ongoing despite conservative management. Still with decreased mobility and strength despite PT, steroid injection. Needs MRI r/o rotator cuff tear. ordered COPD/asthma stable on current medications HLD -continue zetia
[2025-02-26 08:39] VITALS: BP 128/72; PULSE 100; RESP 14; O2SAT 96; BMI 18.6
--- OUTSIDE RECORDS SUMMARY | 2025-02-26 08:59 | XMS_ITS | Clinical Summary ---
Author Organization [facility] Address [address] [place] [address] Care Team Providers Care Benzol Operator Name Role Phone Unavailable Primary Care Provider [...]
--- OUTSIDE RECORDS SUMMARY | 2025-02-26 08:59 | XMS_ITS | Encounter Summary ---
Author Organization [facility] Address [address] [place] [address] Phone Care Team Providers Care Pot Room Supervisor Name Role Phone Bety Patel MD Primary Care Provider + [phone] Encounter Details Date Type Department Care Team (Late Contact Info) Description 02/03/2024 Ancillary Orders [address] [address] System, Provider Not In, [facility] [address] [address] Social History Tobacco Use Types Packs/Day Years [...] Care Team (Late st Contact Info) Description 01/30/2026 10:00 AM EDT Office Visit [facility] [address] [place] [address] [place] [address] Kina Espitia MD [address] [place] [phone] [email or web address] documented as of this encounter Results * DXA Outside (No Interpretation) (02/13/2022 12:00 AM EDT) Narrative Record, 02/03/2024 1:37 PM EDT This study is for PACS storage only and not for interpretation. Procedure Note Record, - 02/03/2024 This study is for PACS storage only and not for interpretation. us Provider Not In System PhD IMG OUTSIDE IMAGING W /OUT INTERPRETATION Final Result documented in this encounter Visit Diagnoses Not on filedocumented in this encounter Care Teams Pot Room Supervisor Relationship Specialty Start Date End Date Bety Patel MD PCP - General Internal Medicine 06/01/23 documented as of this encounter Additional Source Comments The information contained in this document represents components of the legal health record. It is not the complete legal health record.[facility]
--- OUTSIDE RECORDS SUMMARY | 2025-02-26 08:59 | XMS_ITS | Encounter Summary ---
Author Organization [facility] Address [address] [place] [address] Phone Care Team Providers Care Aged Or Disabled Carer Name Role Phone Bety Patel MD Primary Care Provider + [phone] Encounter Details Date Type Department Care Team (Late Contact Info) Description 02/03/2024 Ancillary Orders [address] [address] System, Provider Not In, [facility] [address] [address] Social History Tobacco Use Types Packs/Day Years [...] 10:00 AM EDT Office Visit [facility] [address] [place] [address] [place] [address] Kina Espitia MD [address] [place] [phone] [email or web address] documented as of this encounter Results * DXA Outside (No Interpretation) (02/12/2021 12:00 AM EDT) Narrative Record, 02/03/2024 1:44 PM EDT This study is for PACS storage only and not for interpretation. Procedure Note Record, 02/03/2024 This study is for PACS storage only and not for interpretation. us Provider Not In System PhD IMG OUTSIDE IMAGING W /OUT INTERPRETATION Final Result documented in this encounter Visit Diagnoses Not on filedocumented in this encounter Care Teams Aged Or Disabled Carer Relationship Specialty Start Date End Date Bety Patel MD PCP - General Internal Medicine 06/01/23 documented as of this encounter Additional Source Comments The information contained in this document represents components of the legal health record. It is not the complete legal health record.[facility]
--- OUTSIDE RECORDS SUMMARY | 2025-02-26 08:59 | XMS_ITS | Clinical Summary ---
Author Organization [facility] Address [address] [place] [address] Care Team Providers Care Cream Tester Name Role Phone Bety Hdez MD Primary Care Provider [phone] Allergies Active Allergy Reactions Criticality Noted Date [...] Active halobetasol (ULTRAVATE) 0.05 % cream apply once [...] Units by mouth daily. - Oral Active ezetimibe (ZETIA) 10 mg tablet Take 1 tablet (10 mg total) by mouth 1 (one) time each day. Active Active Problems Problem Noted Date Diagnosed Date Malignant neoplasm of upper- outer quadrant of left breast in female, estrogen receptor positive ([facility] V24, [facility] V28) 06/30/2024 Tubular adenoma 07/16/2017 Tubular adenoma of colon 01/31/2016 Overview (06/30/2024): CN at age 80 if medically appropriate Vitamin D deficiency 04/04/2014 Hemorrhoids 01/28/2010 Heartburn 02/04/2007 Asthma 11/11/2006 Senile osteoporosis 02/16/2006 Overview (06/30/2024): T score - 3.7 right femoral neck, spine -3.5- 2020 Symptomatic menopausal or female climacteric sta mehul 02/16/2006 Encounters Date Type Department Care Team Description 02/22/2025 7:39 AM EDT - 02/22/2025 11:59 PM EDT [facility] [address] [phone] Encounter for screening mammogram for malignant neoplasm of breast Discharge Disposition: Home or Self Care 02/22/2025 7:38 AM EDT - 02/22/2025 11:59 PM EDT Hospital Encounter [facility] Bone Density [address] [place] [phone] Other specified menopausal and perimenopausal disorders Discharge Disposition: Home or Self Care 01/09/2025 10:00 AM EDT Office Visit General Surgery [facility] [address] [place] [phone] Bety Harrington MD Malignant neoplasm of upper-outer quadrant of left breast in female, estrogen receptor positive ([facility] V24, [facility] V28) (Primary Dx) from Last 3 Months Immunizations Immunization Administration Dates Next Due H1N1 Inj Preservative [...] History Surgery Date Site/Laterality Comments SECTION PROCEDURE: DC DELIVERY ONLY; COMMENT: x2 TONSILLECTOMY PROCEDURE: HISTORICAL TONSILLECTOMY OTHER SURGICAL HISTORY PROCEDURE: DC EXCISION PILONIDAL CYST/SINUS COMPLICATED OTHER SURGICAL HISTORY [...] 06/30/2024 3: 31 PM EST Obstetrics History Para Term AB IAB SAB Ectopic Multiple Livin g Live Births 2 Last Filed Vital Signs Vital Sign Reading Time Taken Comments Blood Pressure 145/78 01/09/2025 9:52 AM EDT Pulse 85 01/09/2025 9:52 AM EDT Temperature - - Respiratory Rate - - Oxygen Saturation - - Inhaled Oxygen Concentration - - Weight 45.4 kg (100 lb) 02/22/2025 8:11 AM EDT Height 157.5 cm (5' 2 ) 02/22/2025 8:11 AM EDT Body Mass Index 18.29 02/22/2025 8:11 AM EDT Plan of Treatment Upcoming Encounters Date Type Department Care Team (Late st Contact Info) Description 01/08/2026 10:00 AM EDT Office Visit General Surgery - [address] [place] [address] Bety Harrington MD [address] [place] [phone] Health Maintenance Due Date Last Done Comments Falls Risk Assessment 04/04/2020 Medicare Annual Wellness Visit 04/04/2020 Social Influencers of Health Screening 04/04/2020 Cholesterol Screening (Lipid Panel) 07/16/2022 07/16/2017 Depression Screening 05/31/2024 DTaP,Tdap,and Td Vaccines (4 - Td or Tdap) 12/07/2032 12/07/2022, 08/01/2012, 08/01/2012, Additional history exists Osteoporosis Screening (Bone Density Screening) 02/22/2035 02/22/2025, 02/18/2024, 02/17/2023, Additional history exists Varicella Vaccines Aged Out 05/02/2019 No longer eligible based on patient's age to complete this topic Zoster Vaccines Completed 05/02/2019, 07/2017, 09/29/2017, Additional history exists Pneumococcal Vaccine: 50+ Years Completed 05/21/2022, 05/21/2022, 08/05/2015, Additional history exists RSV Immunization Adult Patients Completed 01/18/2023 Influenza Vaccine Completed 02/11/2025, , 02/10/2023, Additional history exists COVID-19 Vaccine Completed 02/15/2025, , 02/14/2023, Additional history exists HIB Vaccines Aged Out [...] screening mammogram for malignant neoplasm of breast BD BONE DENSITY DXA AXIAL SKELETON Routine 02/22/2025 8:10 AM EDT Other specified menopausal and perimenopausal disorders VENIPUNCTURE CHARGE Routine 12/26/2024 7 :50 AM EDT Mixed hyperlipidemia Onchocerca chorioretinitis LIPID PANEL Routine 07/16/2017 from Last 3 Months or Most Recently Relevant to Health Maintenance Results * MG Mammo Digital Screening w [...] year. [facility]amm[facility] [address], [address] -------- FINAL REPORT -------- Dictated By: Jm Alvarenga Dictated Date: 02/22/2025 08:32 ET Assigned Physician: Jm Alvarenga Reviewed and Electronically Signed By: Jm Alvarenga Signed Date: 02/22/2025 08:38 ET Workstation ID: [id number] Transcribed By: Self Edit Transcribed Date: 02/22/2025 [...] None Computer-aided detection was employed with the [employer] 3-D. TISSUE DENSITY: The breasts are [...] None Computer-aided detection was employed with the [employer] 3-D. TISSUE DENSITY: The breasts are [...] year. Mamm[facility] location: [facility] at [address], [address] -------- FINAL REPORT -------- Dictated By: Jm Alvarenga Dictated Date: 02/22/2025 08:32 ET Assigned Physician: Jm Alvarenga Reviewed and Electronically Signed By: Jm Alvarenga Signed Date: 02/22/2025 08:38 ET Workstation ID: [id number] Transcribed By: Self Edit Transcribed Date: 02/22/2025 08:32 ET us Lorenza Robison MD IMG BI PROCEDURES Final Resu lt * BD Bone Density DXA Axial Skeleton [...] probability of hip fracture of 13.5%. Code 67418 -------- FINAL REPORT -------- Dictated By: Sam Gaffney Dictated Date: 02/22/2025 10:19 ET Assigned Physician: Sam Gaffney Reviewed and Electronically Signed By: Sam Gaffney Signed Date: 02/22/2025 10:21 ET Workstation ID: [id number] Transcribed By: Self Edit Transcribed Date: 02/22/2025 [...] density of the femurs bilaterally is 0.566 gm/eh7yenml is 56% of that of young normals [...] probability of hip fracture of 13.5%. Code 59714 -------- FINAL REPORT -------- Dictated By: Sam Gaffney Dictated Date: 02/22/2025 10:19 ET Assigned Physician: Sam Gaffney Reviewed and Electronically Signed By: Sam Gaffney Signed Date: 02/22/2025 10:21 ET Workstation ID: [id number] Transcribed By: Self Edit Transcribed Date: 02/22/2025 10:19 ET us Lorenza Robison MD [facility] DXA PROCEDURES Final Res ult * Venipuncture charge (12/26/2024 7:50 AM EDT) Extra Tube Hold for add-ons. 12/26/2024 11:01 AM EDT [facility] Comment:Auto resulted. Blood Venous blood specimen / Unknown Venipuncture / Unknown 12/26/2024 7:50 AM EDT 12/26/2024 9:04 AM EDT Roque Copeland MD LAB BLOOD ORDERABLES Final Result [facility] [address] [place] [address], * (ABNORMAL) Lipid panel (07/16/2017) LDL/HDL Ratio 2 0 - 4 Triglycerides 77 0 - 150 mg/dL Cholesterol 233(A) 0 - 200 mg/dL HDL 102 >=40 mg/dL LDL Cholesterol 116(A) 0 - 100 mg/dL Blood Venous blood specimen / Unknown Historical Provider LAB BLOOD ORDERABLES Shannon l Result from Last 3 Months or Most Recently Relevant to Health Maintenance Insurance [facility] MEDICARE ADVANTAGE Advance Directives Documents on File Type Date Recorded Patient Human Resources Executive Assistant Expl anation Health Care Decision (hx) 03/14/2019 AD QIU DIRECTIVE Health Care Decision (hx) 03/14/2019 AD QIU DIRECTIVE Health Care Decision (hx) 03/14/2019 AD QIU DIRECTIVE Health Care Decision (hx) 03/14/2019 AD QIU DIRECTIVE Health Care Decision (hx) 03/14/2019 AD QIU DIRECTIVE Health Care Decision (hx) 03/14/2019 AD QIU DIRECTIVE Health Care Decision (hx) 03/14/2019 AD IQU DIRECTIVE Health Care Decision (hx) 03/14/2019 AD [...] (hx) 03/14/2019 AD QIU DIRECTIVE Care Teams Cream Tester Relationship Specialty Start Date End Date Bety Hdez MD [address] [place] [phone] PCP - General Internal Medicine 07/28/24
--- OUTSIDE RECORDS SUMMARY | 2025-02-26 08:59 | XMS_ITS | Encounter Summary ---
Author Organization [facility] Address [address] [place] [address] Phone Care Team Providers Care Drawbench Operator Name Role Phone Bety Patel MD Primary Care Provider + [phone] Encounter Details Date Type Department Care Team (Late Contact Info) Description 02/03/2024 Ancillary Orders [address] [address] System, Provider Not In, [facility] [address] [address] Social History Tobacco Use Types Packs/Day Years [...] 10:00 AM EDT Office Visit [facility] [address] [place] [address] [place] [address] Kina Espitia MD [address] [place] [phone] [email or web address] documented as of this encounter Results * DXA Outside (No Interpretation) (02/16/2023 12:00 AM EDT) Narrative Record, 02/03/2024 12:40 PM EDT This study is for PACS storage only and not for interpretation. Procedure Note Record, - 02/03/2024 This study is for PACS storage only and not for interpretation. us Provider Not In System PhD IMG OUTSIDE IMAGING W /OUT INTERPRETATION Final Result documented in this encounter Visit Diagnoses Not on filedocumented in this encounter Care Teams Drawbench Operator Relationship Specialty Start Date End Date Bety Patel MD PCP - General Internal Medicine 06/01/23 documented as of this encounter Additional Source Comments The information contained in this document represents components of the legal health record. It is not the complete legal health record.[facility]
--- OUTSIDE RECORDS SUMMARY | 2025-02-26 09:00 | XMS_ITS | Encounter Summary ---
Author Organization [facility] Address [address] [place] [address] Phone Care Team Providers Care Fuel Cell Engineer Name Role Phone Bety Patel MD Primary Care Provider + [phone] Encounter Details Date Type Department Care Team (Late Contact Info) Description 04/04/2024 Ancillary Orders [address] [address] System, Provider Not In, [facility] [address] [address] Social History Tobacco Use Types Packs/Day Years [...] 10:00 AM EDT Office Visit [facility] [address] [place] [address] [place] [address] Kina Espitia MD [address] [place] [phone] [email or web address] documented as of this encounter Results * DXA Outside (No Interpretation) (02/18/2024 12:00 AM EDT) Narrative Record, 04/04/2024 9:38 AM EST This study is for PACS storage only and not for interpretation. Procedure Note Record, 04/04/2024 This study is for PACS storage only and not for interpretation. us Provider Not In System PhD IMG OUTSIDE IMAGING W /OUT INTERPRETATION Final Result documented in this encounter Visit Diagnoses Not on filedocumented in this encounter Care Teams Fuel Cell Engineer Relationship Specialty Start Date End Date Bety Patel MD PCP - General Internal Medicine 06/01/23 documented as of this encounter Additional Source Comments The information contained in this document represents components of the legal health record. It is not the complete legal health record.[facility]
--- OUTSIDE RECORDS SUMMARY | 2025-02-26 09:00 | XMS_ITS | Clinical Summary ---
Author Organization [facility] Address [address] [place] [address] Phone Care Team Providers Care Credit Portfolio Advisor Name Role Phone Bety Patel MD Primary Care Provider [phone] Allergies Active Allergy Reactions Criticality Noted Date Comments Cefaclor Hives 03/20/2019 hives Erythromycin GI Upset 03/20/2019 Shellfish Containing Products Hives,Nausea and/or Vomiting 01/27/2024 Mussels Medications budesonide-formo terol (SYMBICORT) 160-4.5 mcg/actuation inhaler Inhale 1 puff into the lungs 2 (two) times a day. 07/19/19 24 Active albuterol 90 mcg/actuation inhaler 2 puffs. Active cholecalciferol 25 MCG (1,000 unit) tablet Take 1,000 Units by mouth daily. Active therapeutic multivitamin tablet Take 1 tablet by mouth daily. Active vitamins A,C,N-fqvn-smqou r (PRESERVISION AREDS) 4,296 mcg-226 mg-90 mg Cap Take 1 capsule by mouth 2 (two) times a day with meals. Active polyethylene glycol 3350 (MIRALAX ORAL) Take by mouth. Active Bacillus coagulans (PROBIOTIC, B. COAGULANS, ORAL) Take by mouth. Active rosuvastatin (CRESTOR) 40 MG tablet Take 40 mg by mouth daily. Active ezetimibe (ZETIA) 10 mg tablet Take 10 mg by mouth daily. Active estradioL (ESTRACE) 0.5 MG tablet Take 0.5 mg by mouth daily. Active TRIAMCINOLONE ACETONIDE TP Apply topically. Active TOBRAMYCIN-DEXAM ETHASONE OPHT Active CALCIUM CITRATE ORAL Take by mouth. Activ e Medication-Free Text Take 100 mg by mouth daily. Nitokinase Active flaxseed oiL Oil 1 TABLEspoonful by Miscellaneous route daily. Active Medication-Free TextIndications: BERGAMET 2 tablets daily. Indications: BERGAMET Active Medication-Free TextIndications: UBQH 100 mg daily. Indications: UBQH Active Medication-Free TextIndications: THERACUMIN 2 tablets daily. Indications: THERACUMIN Active mometasone-formo terol (DULERA) 100-5 mcg/actuation HFAA Inhale 2 puffs into the lungs. Active Active Problems Problem Noted Date Diagnosed Date Arthritis 01/28/2024 Seasonal allergies 01/28/2024 History of malignant neoplasm of breast 02/14/20 21 Ductal carcinoma in situ (DCIS) of breast 2018 Macular degeneration 10/07/2017 Tubular adenoma of colon 01/31/2016 Overview (01/28/2024): Overview: CN at age 80 if medically appropriate Vitamin D deficiency 04/04/2014 Heartburn 02/04/2007 Asthma 11/11/2006 Age-related osteoporosis wit nella current pathological fracture Assessment & Plan (01/26/2025 3:34 PM EDT): 84 y.o. woman with osteoporosis w/o hx of fracture. She had been treated with a bisphosphonate x 5 yrs. She subsequently began HRT which was held for a few years after dx DCIS & then restarted w/ provider from [place] who may be retiring soon. She has come off of progesterone following total hys. She feels better on ERT & wishes to continue, she is well aware of risks/benefits. I told her I would be willing to prescribe if/when provider retires. She is getting some calcium in via diet, hasn't tolerated supplements. She is active. She does not appear to be at high risk for falls. She is scheduled for repeat bone density soon. Asked her to send me message via portal when done & to send copy of recent labs. Assessment & Plan (01/28/2024 2:10 PM EDT): 83 y.o. woman with osteoporosis w/o hx of fracture. She had been tried in the past on bisphosphonate, potentially took for a few years total, stopped due to jaw discomfort. She has hx reflux, but doing fine now. Sees dentist regularly. Will call for old records along w/ full reports of bone densities to evaluate for technical consistency. Will call for recent labs & determine if any additional labs needed. She may not be getting enough calcium so would work on increasing that. Would consider pharmacologic rx, ? IV given hx of reflux. She prefers to re-try one of oral meds to see if has any recurrent issues. Reviewed role of adequate calcium & vitamin D, weight-bearing exercise, avoiding falls and pharmacologic rx with risks/benefits. Advised her to refer to UpToDate patient information @ calcium & vitamin D & prevention and treatment of osteoporosis, beyond the basics for additional information. Encounters Date Type Department Care Team Description 01/26/2025 10:00 AM EDT Office Visit [facility] [address] [place] [address] [place] [address] Kina Espitia MD Age-related osteoporosis without current pathological fracture (Primary Dx) from Last 3 Months Social History Tobacco Use Types Packs/Day Years Used Date Smoking Tobacco: Former Cigarettes Smokeless Tobacco: Never Tobacco Cessation:Counseling Given: Not Answered Alcohol Use Standard Drinks/Week Comments Yes 7 [...] Orientation Straight 01/30/2024 10 :09 AM EDT Last Filed Vital Signs Vital Sign Reading Time Taken Comments Blood Pressure 122/78 01/26/2025 9:49 AM EDT Pulse 63 01/26/2025 9:49 AM EDT Temperature - - Respiratory Rate - - Oxygen Saturation 96% 01/26/2025 9:49 AM EDT Inhaled Oxygen Concentration - - Weight 45 kg (99 lb 3.2 oz) 01/26/2025 9:49 AM E DT Height 155.6 cm (5' 1.26 ) 01/26/2025 9:49 AM ED T Body Mass Index 18.58 01/26/2025 9:49 AM EDT Plan of Treatment Upcoming Encounters Date Type Department Care Team (Late st Contact Info) Description 01/30/2026 10:00 AM EDT Office Visit [facility] [address] [place] [address] [place] [address] Kina Espitia MD [address] [place] [id number] [email or web address] Health Maintenance Due Date Last Done Comments Adult Td,Tdap Booster 1940 DEPRESSION SCREENING 1951 PNEUMOCOCCAL VACCINES (50+ y ears) (1 of 2 - PCV) 1958 OSTEOPOROSIS SCREENING INITI AL (ONE-TIME) 2004 ZOSTER VACCINES (1 of 2) 03/25/2010 01/28/2010 RSV VACCINE (1 - 1-dose 75+ series) 2014 INFLUENZA VACCINE (#1) 2024 COVID-19 VACCINE ( - 2023-2 5 season) 2025 HEPATITIS A VACCINES Aged Out No long er eligible based on patient's age to complete this topic HIB VACCINES Aged Out No longer eligi ble based on patient's age to complete this topic MENINGOCOCCAL VACCINES (ACWY) Aged Out No longer eligible based on patient's age to complete this topic MENINGOCOCCAL VACCINES (B) Aged Out N o longer eligible based on patient's age to complete this topic Medical Devices Not on file [place] [address] [place] [address] MED[address] PPO [place] [address] [place] [address] MED[address]ARE PPO [address] [place] [address] [place] [address] MEDICARE PPO BLUE REPLACEMENT MEDICARE PPO [place] [address] [place] [address] MEDICARE PPO BLUE REPLACEMENT Care Teams Credit Portfolio Advisor Relationship Specialty Start Date End Date Bety Patel MD PCP - General Internal Medicine 06/01/23 Additional Source Comments The information contained in this document represents components of the legal health record. It is not the complete legal health record.[facility]
--- OUTSIDE RECORDS SUMMARY | 2025-02-26 09:00 | XMS_ITS | Encounter Summary ---
Author Organization [facility] Address [address] [place] [address] Phone Care Team Providers Care Director [employer] Name Role Phone Bety Patel MD Primary Care Provider [phone] Encounter Details Date Type Department Care Team (Late Contact Info) Description 04/04/2024 Ancillary Orders [facility],Outside Imaging [address] [place] [address] System, Provider Not In, [facility] [address] [address] Social History Tobacco Use Types Packs/Day Years [...] 10:00 AM EDT Office Visit [facility] [address] [place] [address] [place] [address] Kina Espitia MD [address] [place] [phone] [email or web address] documented as of this encounter Results * DXA Outside (No Interpretation) (02/16/2023 12:05 AM EDT) Narrative SYSTEMGENERATED, DOCUMENTATION - 04/04/2024 6:43 AM EST This study is for PACS storage only and not for interpretation. us Provider Not In System [facility] OUTSIDE IMAGING W /OUT INTERPRETATION Final Result documented in this encounter Visit Diagnoses Not on filedocumented in this encounter Care Teams Director [employer] Relationship Specialty Start Date End Date Bety Patel MD PCP - General Internal Medicine 06/01/23 documented as of this encounter Additional Source Comments The information contained in this document represents components of the legal health record. It is not the complete legal health record.[facility]
== END 2025-02-26 09:18 | disposition home or self-care (01) ==
LOC: HO.HMCFM 08:35
PROVIDERS: PCP Internal Medicine; Visit Provider Internal Medicine
DX: M25.511 Pain in right shoulder (principal); M81.0 Age-related osteoporosis without current pathological fracture; J44.9 Chronic obstructive pulmonary disease, unspecified

== ENCOUNTER → 2025-02-26 08:34 | Outpatient (BNVA) | payer MEDICARE, SELFPAY | PROVIDERS: PCP Internal Medicine; Visit Provider Internal Medicine | DX: M25.511 Pain in right shoulder (principal); M81.0 Age-related osteoporosis without current pathological fracture; J44.9 Chronic obstructive pulmonary disease, unspecified; J45.909 Unspecified asthma, uncomplicated; Z85.3 Personal history of malignant neoplasm of breast | CPT/HCPCS: 99212 ==